=== PATIENT | female | born 1945 | race Caucasian/White ===

== ENCOUNTER 2016-05-24 08:28 | Day surgery (SDC) | payer OTHER ==
[2016-05-20 12:07] VITALS: BMI 35.9
--- NOTE | 2016-05-24 06:29 | HP ---
History & Physical Update - History History: No Change - Physical Physical: No Change - Assessment Assessment: No Change - Plan Plan: No Change
[~2016-05-24 08:28] MED LIST: TOBRA 0.3%/DEXAMETH 0.1% OPHTHALMIC SUSP 2.5 ML BTL TP ONE; TOBRAMYCIN/DEXAMETHASONE OPHTH. OINTMENT 1 TUBE TP ONE
[2016-05-24] MEDS ORDERED: TROPICAMIDE 1% OPHTH SOLN 15 ML BOTTLE ONE (08:51)
[2016-05-24] MEDS ORDERED: MOXIFLOXACIN HCL 0.5% OPHTHALMIC 3 ML BOTTLE ONE (08:51)
[2016-05-24] MEDS ORDERED: CYCLOPENTOLATE HCL 1% OPHTH SOLN 2 ML BOTTLE ONE (08:51)
[2016-05-24] MEDS ORDERED: PHENYLEPHRINE 2.5% OPHTH SOLN 15 ML BOTTLE ONE (08:51)
[2016-05-24] MEDS: TROPICAMIDE 1% OPHTH SOLN 15 ML BOTTLE OP SCH ×2 (09:00→09:05)
[2016-05-24] MEDS: MOXIFLOXACIN HCL 0.5% OPHTHALMIC 3 ML BOTTLE OP SCH ×2 (09:00→09:05)
[2016-05-24] MEDS: PHENYLEPHRINE 2.5% OPHTH SOLN 15 ML BOTTLE OP SCH ×2 (09:00→09:05)
[2016-05-24] MEDS: CYCLOPENTOLATE HCL 1% OPHTH SOLN 2 ML BOTTLE OP SCH ×2 (09:00→09:05)
[2016-05-24 09:10] VITALS: TEMP 97.5
[2016-05-24] MEDS ORDERED: TETRACAINE 0.5% HCL 0.6ML DROPPER.BOTTLE TP ONE (10:19)
[2016-05-24] MEDS ORDERED: LIDOCAINE HCL/PF 2% SDV 5ML VIAL PNB ONE (10:25)
[2016-05-24] MEDS ORDERED: BUPIVACAINE HCL/PF 0.75% 10 ML VIAL RB ONE ×2 (10:25)
[2016-05-24] MEDS ORDERED: LIDOCAINE HCL/PF 2% SDV 5ML VIAL INF ONE (10:25)
[2016-05-24] MEDS ORDERED: POVIDONE-IODINE 5% OPHTHALMIC PREP 30 ML SOLUTION OD ONE (10:31)
[2016-05-24] MEDS ORDERED: ACETYLCHOLINE 1:100 INTRA-OCUL 20 MG/2 ML KIT IO ONE (10:36)
[2016-05-24] MEDS ORDERED: TRYPAN BLUE 0.5 ML DISP.SYRIN IO ONE (10:36)
[2016-05-24] MEDS ORDERED: EPINEPHrine/PF 1 MG/1 ML (1:1,000) AMPULE SQ ONE (10:36)
[2016-05-24] MEDS ORDERED: CHONDROITIN SU A/HYALUR SOD 1 KIT IO ONE (10:36)
[2016-05-24] MEDS ORDERED: LIDOCAINE HCL 1% PRESERVATIVE FREE - 30ML VIAL IO ONE ×2 (10:36)
[2016-05-24] MEDS ORDERED: BSS (NA/CA/MG/K) BALANCED SALT SOLUTION OPHTH SOLN 15 ML BOTTLE OD ONE (10:36)
[2016-05-24] MEDS ORDERED: TOBRAMYCIN/DEXAMETHASONE OPHTH. OINTMENT 1 TUBE TP ONE (10:57)
[2016-05-24 11:54] VITALS: BP 140/83; PULSE 84
--- NOTE | 2016-05-24 13:08 | OP ---
DATE OF OPERATION: 05/24/2016 SURGEON: Wing Pandya MD PREOPERATIVE DIAGNOSIS: Cataract, right eye. OPERATION: Phacoemulsification and intraocular lens implantation, right eye. POSTOPERATIVE DIAGNOSIS: Cataract, right eye. ANESTHESIA: Local with intravenous sedation. COMPLICATIONS: None. BLOOD LOSS: None. SPECIMEN: None. BRIEF HISTORY: The patient is a 70-year-old woman with a past medical history of diabetes, who presented with decreased vision in the right eye down to 20/70 due to a 2+ nuclear sclerotic lens with anterior cortical changes. The patient has a history of having a pars plana vitrectomy. After the risks, benefits and alternatives to cataract surgery were discussed with the patient, including the increased risk due to her prior surgery, she consented to surgery for the right eye. The patient was brought to the operating room and administered retrobulbar block after receiving intravenous sedation. She was then prepped and draped in the usual sterile fashion and an eyelid speculum was inserted in the right eye. A paracentesis was made and the anterior chamber was inflated with nonpreserved lidocaine followed by injection of air, trypan blue due, and Viscoat. A groove was made in the temporal clear cornea which was tunneled forward with a crescent blade. The anterior chamber was entered with a 2.75 keratome. The cystotome was used to make an incision in the center of the capsule and a continuous curvilinear capsulorrhexis was created. The lens was hydrodissected until it was found to rotate freely within the capsular bag. Phacoemulsification was then used to remove the lens in its entirety. Irrigation and aspiration was used to remove residual cortical material. The anterior chamber and capsular bag were reinflated with ProVisc and a 24.0 diopter [id number] AcrySof intraocular lens was injected into the capsular bag using the [place] injector. The lens was dialed into place using the [place] hook. Irrigation and aspiration was used to remove residual viscoelastic. The wound was stromally hydrated until it was found to be watertight and the eye was in the appropriate pressure. The eyelid speculum was removed from the eye and TobraDex ointment and a patch and shield were placed over the right eye. The patient was transferred to the recovery room in stable condition and will follow up tomorrow. WING PANDYA M.D. [id number] MTDD
== END 2016-05-24 12:06 | disposition home or self-care (01) ==
LOC: JASU-SURG 08:28
PROVIDERS: ATTEND Ophthalmology
PROC: 08RJ3JZ Replacement of Right Lens with Synthetic Substitute, Percutaneous Approach (ICD-10-PCS; principal; 2016-05-24 11:00)
DX: H25.11 Age-related nuclear cataract, right eye (principal)

== ENCOUNTER 2016-10-07 18:41 | Observation (INO) | payer OTHER ==
--- NOTE | 2016-10-07 20:30 | PDOC ---
History of Present Illness - General Chief Complaint: Revisit, Lab Variance Stated Complaint: PCP SENT/KIDNEY FUNCTION? Time Seen by Provider: 10/07/16 20:13 - History of Present Illness Initial Comments: 10/07/16 20:22 CHIEF COMPLAINT: lab variance HISTORY OF PRESENT ILLNESS: 70 yo F with hx of HTN (on metoprolol, amlodipine, losartan, furosemide, metalazone), IDDM, CKD (stage 3), a-fib (on xarelto), sent to ED by PCP's office. Patient reports that she was feeling "weak" last week and her doctor Dr. Montiel did blood work to "check everything." She states that she received a call from the covering physician today because Dr. Montiel is on vacation and she was told that her labs were "not good" and she needed to go to the ER to "recheck everything." She denies any current symptoms but does report that she had a nosebleed last week and was told by Dr. Montiel to stop taking her Xarelto for one day and then restart it again after. She states that she took a Xarelto today at 3 pm and at 6 pm she had a small nosebleed again, although "only for 5 seconds." PAST MEDICAL HISTORY: as per HPI FAMILY HISTORY: Denies SOCIAL HISTORY:Denies tobacco, alcohol, illicit drug use. SURGICAL HISTORY: Denies ALLERGIES: No known drug allergies REVIEW OF SYSTEMS General/Constitutional: Denies fever or chills. Denies weakness, weight change. HEENT: Denies change in vision. Denies ear pain or discharge. Denies sore throat. Cardiovascular: Denies chest pain or shortness of breath. Respiratory: Denies cough, wheezing, or hemoptysis. Gastrointestinal: Denies nausea, vomiting, diarrhea or constipation. Denies rectal bleeding. Genitourinary: Denies dysuria, frequency, or change in urination. Musculoskeletal: Denies joint or muscle swelling or pain. Denies neck or back pain. Skin and breasts: Denies rash or easy bruising. Neurologic: Denies headache, vertigo, loss of consciousness, or loss of sensation. PHYSICAL EXAM General Appearance: Well-appearing, appropriately dressed. No apparent distress. HEENT: EOMI, PERRLA, normal ENT inspection, normal voice, TMs normal, pharynx normal. No conjunctival pallor. No photophobia, scleral icterus. Neck: Supple. Trachea midline. No tenderness, rigidity, carotid bruit, stridor , lymphadenopathy, or thyromegaly. Respiratory/Chest: Lungs CTAB. No shortness of breath, chest tenderness, respiratory distress, accessory muscle use. No crackles, rales, rhonchi, stridor , wheezing, dullness Cardiovascular: RRR. S1, S2. No JVD, murmur, bradycardia, tachycardia. Vascular Pulses: Dorsalis-Pedis (R): 2+, Dorsalis-Pedis (L): 2+ Gastrointestinal/Abdominal: Normal bowel sounds. Abdomen soft, non-distended. No tenderness or rebound tenderness. No organomegaly, pulsatile mass, guarding , hernia, hepatomegaly, splenomegaly. Lymphatic: No adenopathy, tenderness. Musculoskeletal/Extremities: Normal inspection. FROM of all extremities, normal capillary refill. Pelvis Stable. No CVA tenderness. No tenderness to extremities, pedal edema, swelling, erythema or deformity. Integumentary: Appropriate color, dry, warm. 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 Fully oriented, alert. Appropriate mood/affect. Motor strength 5/5. No appreciable EOM palsy, facial droop or sensory deficit. Past History - Past Medical History Allergies/Adverse Reactions: Allergies Allergy/AdvReac Type Severity Reaction Status Date / Time No Known Allergies Allergy Verified 10/07/16 18:46 Home Medications: Ambulatory Orders Losartan Potassium 100 mg PO DAILY 11/21/14 Amlodipine Besylate 10 mg PO DAILY #0 11/25/14 Atorvastatin Ca [Lipitor] 20 mg PO HS #0 11/25/14 Fluticasone Prop 0.05% Nasal [Flonase -] 1 - 2 spray NS PRN PRN 05/20/16 Furosemide [Lasix -] 40 mg PO UTDICT 05/20/16 Ibuprofen 800 mg PO PRN PRN 05/20/16 Insulin Lispro Protamin/Lispro [Humalog Mix 75-25 Vial] 24 unit SQ DAILY Metolazone 5 mg PO UTDICT 05/20/16 Metoprolol Tartrate 100 mg PO BID 05/20/16 Potassium Chloride 20 meq PO DAILY 05/20/16 Rivaroxaban [Xarelto -] 20 mg PO DAILY 05/20/16 Anemia: No Asthma: Yes Cancer: No Cardiac Disorders: Yes (ARRHYTHMIA on xarelto) CVA: No COPD: No CHF: No Dementia: No Diabetes: Yes GI Disorders: No Disorders: No HTN: Yes Liver Disease: No Seizures: No Thyroid Disease: No - Surgical History Abdominal Surgery: Yes Appendectomy: Yes Cardiac Surgery: No Cholecystectomy: Yes Lung Surgery: No Neurologic Surgery: No Orthopedic Surgery: No - Psycho/Social/Smoking Cessation Hx Anxiety: No Suicidal Ideation: No Smoking History: Never smoked Have you smoked in the past 12 months: No If you are a former smoker, when did you quit?: 30YRS AGO Information on smoking cessation initiated: No Hx Alcohol Use: No Drug/Substance Use Hx: No Substance Use Type: None Hx Substance Use Treatment: No *Physical Exam - Vital Signs Last Vital Signs Temp Pulse Resp BP Pulse Ox 97.9 F 97 H 18 156/108 99 10/07/16 18:45 10/07/16 18:45 10/07/16 18:45 10/07/16 18:45 10/07/16 18:45 ED Treatment Course - LABORATORY CBC & Chemistry Diagram: 10/07/16 21:15 10/07/16 21:15 Medical Decision Making - Medical Decision Making 10/07/16 20:50 70 yo F with hx of HTN (on metoprolol, amlodipine, losartan, furosemide, metalazone), IDDM, CKD (stage 3), a-fib (on xarelto), sent to ED by PCP's office. -CBC, CMP, PT/INR, Mg, card profile -UA, UCx 10/07/16 22:43 Labs: BUN 62, Creatinine 2.2 Per PCP office, baseline BUN 38, creatinine 1.2. Will admit for PERI on CKD. PCP 's office paged. 10/07/16 23:09 Discussed case with covering PCP Nakia, who accepts patient for observation for PERI on CKD. NS 75cc/hr started per MD Yee. *DC/Admit/Observation/Transfer - Discharge Dispostion Admit: Yes - Referrals Referrals: Bonnie Montiel MD [Primary Care Provider] -
[2016-10-07 21:48] LABS: BASOPHIL 1.1 % (0-2.0); EOSINOPHIL 0.5 % (0-4.5); MCH 23.1 pg (25.7-33.7); MEAN CELL VOLUME 74.5 fl (80-96); MEAN PLT VOLUME 8.1 fl (7.5-11.1); NEUTROPHILS 65.5 % (42.8-82.8); PLATELET COUNT 394 K/MM3 (134-434); WHITE BLOOD COUNT 8.2 K/mm3 (4.0-10.0)
[2016-10-07 21:50] LABS: URINE APPEARANCE CLEAR; URINE BILIRUBIN NEGATIVE (NEGATIVE); URINE BLOOD NEGATIVE (NEGATIVE); URINE COLOR LTYELLOW; URINE GLUCOSE (UA) NEGATIVE (NEGATIVE); URINE KETONE NEGATIVE (NEGATIVE); URINE NITRITE NEGATIVE (NEGATIVE); URINE PROTEIN NEGATIVE (NEGATIVE); URINE UROBILINOGEN NEGATIVE E.U./dl (0.2-1.0)
[2016-10-07 22:07] LABS: URINE LEUK ESTERASE TRACE (NEGATIVE)
[2016-10-07 22:09] LABS: URINE MUCUS RARE; URINE RBC <1 /hpf (0-3); URINE WBC 8 /hpf (3-5)
[2016-10-07 22:11] LABS: INR 2.14 (0.82-1.09); PROTHROMBIN TIME (PATIENT) 23.9 SEC (9.98-11.88)
[2016-10-07 22:17] LABS: ALBUMIN 3.5 g/dl (3.4-5.0); ANION GAP 11 (8-16); BILIRUBIN,TOTAL 1.5 mg/dL (0.2-1.0); CALCIUM 9.5 mg/dL (8.5-10.1); CO2 27 mmol/L (21-32); CREATININE 2.2 mg/dL (0.55-1.02); GLUCOSE,RANDOM 173 mg/dL (74-106); MAGNESIUM 2.4 mg/dL (1.8-2.4); SGOT/AST 31 U/L (15-37); SGPT/ALT 17 U/L (12-78); TOT PROT 7.7 g/dl (6.4-8.2)
[2016-10-07 22:20] LABS: ALK PHOS 215 U/L (45-117); TROPONIN I < 0.02 ng/ml (0.00-0.05)
[2016-10-07] MEDS ORDERED: SODIUM CHLORIDE 0.9% 1000 ML INFUS.BAG IV ONE (22:33)
[2016-10-08] MEDS: SODIUM CHLORIDE 1,000 ML IV SCH ×3 (00:02→11:40)
[2016-10-08] MEDS ORDERED: FLUTICASONE PROP 0.05% 16 GM NASAL SPRAY NS PRN (00:18)
[2016-10-08 03:23] VITALS: BMI 40.6
[2016-10-08] MEDS ORDERED: INSULIN (NOVOLOG) ASPART 100 UNITS/ML 10ML VIAL ONE (06:13)
[2016-10-08] MEDS: INSULIN SLIDING SCALE (NOVOLOG) 1 VIAL SQ SCH ×3 (06:14→17:33)
[2016-10-08] MEDS: INSULIN (NOVOLOG MIX 70/30) 100 UNITS/ML MDV SQ SCH (06:15)
[2016-10-08 09:26] LABS: URINE CREATININE 44.1 mg/dL (20-320)
[2016-10-08] MEDS: amLODIPine BESYLATE 10 MG TABLET (FP) PO SCH (09:30)
[2016-10-08] MEDS: METOPROLOL TARTRATE 50 MG TABLET (FP) PO SCH ×2 (09:31→21:58)
[2016-10-08] MEDS ORDERED: PATIENT'S OWN MEDICATION (NON-FORMULARY) (Insulin Lispro Protamin/Lispro [Humalog Mix 75-2 SQ SCH (10:00)
--- NOTE | 2016-10-08 11:27 | HP ---
Admitting History and Physical - Primary Care Physician PCP: Bonnie Montiel - Admission Chief Complaint: Feeling weak and Tired History of Present Illness: 70 yrs old f H/O T2DM on Insulin, poorly controlled, Diabetiv=c Nephropathy, CKD stgae 3 base line GFR 46 BUN/Creat 36/1.8, HTN, Persistent Afib rate controlled on Xarelto, HfpEF diastolic dysfunction, chronic anemia, patient was present to PMD office with 1 wk c/o off and on epistaxis, feeling weak and tired , frequent low Fs in 60s and dehydration, blood w/u was done that shows worsening renal functions BUN 74 Creat 2.8 GFR 20.8, patient skipped few medication, referred by PMD to optimize medical management, no chest pain, palpitation, SOB, cough, fever, chills, nausea, vomiting or diarrhea, no change in ET denies orthopnea or worsening SIERRA History Source: Patient Limitations to Obtaining History: No Limitations - Past Medical History Cardiovascular: Yes: AFIB, CHF, HTN, Hyperlipdemia - Smoking History Smoking history: Never smoked Have you smoked in the past 12 months: No If you are a former smoker, when did you quit?: 30YRS AGO - Alcohol/Substance Use Hx Alcohol Use: No - Social History History of Recent Travel: No Home Medications - Allergies Allergies/Adverse Reactions: Allergies Allergy/AdvReac Type Severity Reaction Status Date / Time No Known Allergies Allergy Verified 10/07/16 18:46 - Home Medications Home Medications: Ambulatory Orders Amlodipine Besylate 10 mg PO DAILY #0 11/25/14 Atorvastatin Ca [Lipitor] 20 mg PO HS #0 11/25/14 Fluticasone Prop 0.05% Nasal [Flonase -] 1 - 2 spray NS PRN PRN 05/20/16 Insulin Lispro Protamin/Lispro [Humalog Mix 75-25 Vial] 24 unit SQ DAILY Metoprolol Tartrate 100 mg PO BID 05/20/16 Potassium Chloride 20 meq PO DAILY 05/20/16 Atorvastatin Ca [Lipitor] 20 mg PO HS tablet 10/10/16 Fluticasone Prop 0.05% Nasal [Flonase -] 1 spray NS PRN PRN #0 spray 10/10/16 Furosemide [Lasix -] 20 mg PO DAILY tablet 10/10/16 Metoprolol Tartrate [Lopressor -] 50 mg PO BID tablet 10/10/16 Rivaroxaban [Xarelto -] 15 mg PO DAILY tablet 10/10/16 Family Disease History - Family Disease History Family Disease History: Heart Disease: Father, Mother Review of Systems - Review of Systems Constitutional: reports: Lethargy, Loss of Appetite, Malaise HENT: reports: No Symptoms Neck: reports: No Symptoms. denies: Decreased ROM, Pain on Movement Cardiovascular: reports: Edema, Shortness of Breath Respiratory: denies: Cough, Hemoptysis, Orthopnea, PND Gastrointestinal: denies: Diarrhea, Vomiting, Vomiting Blood Genitourinary: reports: Testicular Mass. denies: Dysuria, Flank Pain Musculoskeletal: reports: Back Pain Integumentary: denies: Blister, Bruising Neurological: reports: No Symptoms Endocrine: reports: Flushing Hematology/Lymphatic: reports: Easily Bruised, Excessive Bleeding Psychiatric: reports: No Symptoms Physical Examination Vital Signs: Vital Signs Temperature 97.9 F 10/08/16 08:51 Pulse Rate 89 10/08/16 08:51 Respiratory Rate 20 10/08/16 08:51 Blood Pressure 139/73 10/08/16 08:51 O2 Sat by Pulse Oximetry (%) 97 10/08/16 08:00 Constitutional: Yes: Calm, Pallor Eyes: Yes: Conjunctiva Clear, EOM Intact, PERRL. No: Diplopia HENT: Yes: Atraumatic, Normocephalic, Epistaxis Neck: Yes: Supple, Trachea Midline. No: Decreased ROM Cardiovascular: Yes: Regular Rate and Rhythm, S1, S2. No: Murmur Respiratory: Yes: Regular, CTA Bilaterally Gastrointestinal: Yes: Normal Bowel Sounds. No: Rectal Bleeding, Tenderness, Epigastrium, Tenderness, Rebound Edema: Yes Edema: LLE: 1+, RLE: 1+ Peripheral Pulses: Left Doralis Pedis: 1+, Right Dorsalis Pedis: 1+ Neurological: Yes: WNL, Alert, Oriented, Lethargy. No: Facial Droop, Seizure ...Motor Strength: WNL, LUE, LLE, RUE, RLE Labs: CBC, BMP 10/07/16 21:15 10/07/16 21:15 CMP Sodium 139 mmol/L (136-145) 10/08/16 12:15 Potassium 3.1 mmol/L (3.5-5.1) L 10/08/16 12:15 Chloride 100 mmol/L (98-107) 10/08/16 12:15 Carbon Dioxide 27 mmol/L (21-32) 10/08/16 12:15 Anion Gap 12 (8-16) 10/08/16 12:15 BUN 57 mg/dL (7-18) H 10/08/16 12:15 Creatinine 1.9 mg/dL (0.55-1.02) H 10/08/16 12:15 Creat Clearance w eGFR 22.20 (>60) 10/07/16 21:15 POC Glucometer 238 UNITS (()) 10/08/16 16:59 Random Glucose 122 mg/dL (74-106) H D 10/08/16 12:15 Calcium 8.9 mg/dL (8.5-10.1) 10/08/16 12:15 Magnesium 2.3 mg/dL (1.8-2.4) 10/08/16 12:15 Total Bilirubin 1.5 mg/dL (0.2-1.0) H D 10/07/16 21:15 AST 31 U/L (15-37) D 10/07/16 21:15 ALT 17 U/L (12-78) D 10/07/16 21:15 Alkaline Phosphatase 215 U/L (45-117) H D 10/07/16 21:15 Creatine Kinase 67 IU/L (26-192) 10/07/16 21:15 Troponin I < 0.02 ng/ml (0.00-0.05) 10/07/16 21:15 B-Natriuretic Peptide 2582.98 pg/ml (5-125) H 10/08/16 12:15 Total Protein 7.7 g/dl (6.4-8.2) 10/07/16 21:15 Albumin 3.5 g/dl (3.4-5.0) 10/07/16 21:15 Imaging - Results EKG: Report Reviewed Problem List - Problems (1) Acute on chronic renal failure Assessment/Plan: Patient present with worsening renal function at base line CKD stage 3 due to over diuresis will hold diuretics, IV Hydration with close observation for volume overload, F/U IP/OP chart daily weight and BMP. Code(s): N17.9 - ACUTE KIDNEY FAILURE, UNSPECIFIED N18.9 - CHRONIC KIDNEY DISEASE, UNSPECIFIED Qualifiers: Chronic kidney disease stage: stage 3 (moderate) (2) HTN (hypertension) Assessment/Plan: Well controlled will Hold Losartan for worsen renal functions, Metoprolol 50 mg BID cont amlodipine, Code(s): I10 - ESSENTIAL (PRIMARY) HYPERTENSION (3) T2DM (type 2 diabetes mellitus) Assessment/Plan: Frequent episodes of Hypoglycemia, poor Po intake and worsening renal functions Levimir 12 units bed time F/U HbA1C, cont correction dose Lispro. Code(s): E11.9 - TYPE 2 DIABETES MELLITUS WITHOUT COMPLICATIONS Qualifiers: Diabetes mellitus complication status: with kidney complications Diabetes mellitus complication detail: with nephropathy Diabetes mellitus intermediate teacher insulin use: with shelter use Qualified Code(s): E11.21 - Type 2 diabetes mellitus with diabetic nephropathy; Z79.4 - FPC (current) use of insulin (4) Diastolic CHF Assessment/Plan: Chronically elevated PrO BNP, recent ECHo normal EF with diastolic dysfunction F /u with cardiology. Code(s): I50.30 - UNSPECIFIED DIASTOLIC (CONGESTIVE) HEART FAILURE Qualifiers : Congestive heart failure chronicity: acute on chronic Qualified Code (s): I50.33 - Acute on chronic diastolic (congestive) heart failure (5) Atrial fibrillation Assessment/Plan: Chronic Afib rate controlled on AC with Xarelto 20 will adjust as per GFR to 15 units mg daily. Code(s): I48.91 - UNSPECIFIED ATRIAL FIBRILLATION (6) Dehydration Assessment/Plan: IV Hydration F/U BMP.and GFR Code(s): E86.0 - DEHYDRATION (7) Hypothyroidism Assessment/Plan: F/U TSH will resume Levothyroxine after confirming dose. Code(s): E03.9 - HYPOTHYROIDISM, UNSPECIFIED
[2016-10-08 12:41] LABS: MCH 23.4 pg (25.7-33.7); MCHC 31.3 g/dl (32.0-36.0); MEAN CELL VOLUME 74.8 fl (80-96); MEAN PLT VOLUME 7.9 fl (7.5-11.1); PLATELET COUNT 343 K/MM3 (134-434); RDW 18.9 % (11.6-15.6); WHITE BLOOD COUNT 7.4 K/mm3 (4.0-10.0)
[2016-10-08 13:13] LABS: ANION GAP 12 (8-16); CALCIUM 8.9 mg/dL (8.5-10.1); CO2 27 mmol/L (21-32); CREATININE 1.9 mg/dL (0.55-1.02); GLUCOSE,RANDOM 122 mg/dL (74-106)
[2016-10-08] MEDS ORDERED: POTASSIUM CHLORIDE TABS 20 MEQ TABLET.ER (FP) PO ONE (14:00)
[2016-10-08] MEDS ORDERED: PT OWN MED DRAWER 7, Y5N ONE (14:18)
[2016-10-08 14:41] LABS: MAGNESIUM 2.3 mg/dL (1.8-2.4)
[2016-10-08] MEDS: ATORVASTATIN CA 20 MG TABLET (FP) PO SCH (21:59)
[2016-10-08] MEDS ORDERED: METOPROLOL TARTRATE 50 MG TABLET (FP) PO ONE (22:00)
[2016-10-09] MEDS: SODIUM CHLORIDE 1,000 ML IV SCH (02:16)
[2016-10-09] MEDS: INSULIN (NOVOLOG MIX 70/30) 100 UNITS/ML MDV SQ SCH (06:09)
[2016-10-09] MEDS ORDERED: INSULIN (NOVOLOG) ASPART 100 UNITS/ML 10ML VIAL ONE ×2 (06:10→16:56)
[2016-10-09] MEDS: INSULIN SLIDING SCALE (NOVOLOG) 1 VIAL SQ SCH ×3 (06:10→16:57)
[2016-10-09 08:41] LABS: BASOPHIL 0.9 % (0-2.0); EOSINOPHIL 1.3 % (0-4.5); MCH 23.4 pg (25.7-33.7); MCHC 31.2 g/dl (32.0-36.0); MEAN CELL VOLUME 74.8 fl (80-96); NEUTROPHILS 66.5 % (42.8-82.8); PLATELET COUNT 297 K/MM3 (134-434); RDW 18.7 % (11.6-15.6); WHITE BLOOD COUNT 7.3 K/mm3 (4.0-10.0)
[2016-10-09 08:51] LABS: INR 1.42 (0.82-1.09); PROTHROMBIN TIME (PATIENT) 15.7 SEC (9.98-11.88)
[2016-10-09 09:20] LABS: ALBUMIN 2.8 g/dl (3.4-5.0); ANION GAP 9 (8-16); CALCIUM 8.6 mg/dL (8.5-10.1); CO2 27 mmol/L (21-32); GLUCOSE,RANDOM 172 mg/dL (74-106)
[2016-10-09 09:32] LABS: ALK PHOS 168 U/L (45-117); BILIRUBIN,TOTAL 1.3 mg/dL (0.2-1.0); CREATININE 1.9 mg/dL (0.55-1.02); SGOT/AST 23 U/L (15-37); SGPT/ALT 15 U/L (12-78); THYROID STIMULATING HORMONE 3.29 uIU/ml (0.358-3.74); TOT PROT 6.2 g/dl (6.4-8.2)
[2016-10-09] MEDS: METOPROLOL TARTRATE 50 MG TABLET (FP) PO SCH ×2 (09:57→21:52)
[2016-10-09] MEDS: amLODIPine BESYLATE 10 MG TABLET (FP) PO SCH (09:57)
[2016-10-09] MEDS ORDERED: FUROSEMIDE 20 MG TABLET (FP) PO SCH (13:15)
--- NOTE | 2016-10-09 13:21 | PN ---
Progress Note, Physician Chief Complaint: Patient feels improved no c/o weakness History of Present Illness: 70 yrs old F with HTN, T2DM, chronic Afib, CKD stage 3 present with worsening renal functions. - Current Medication List Current Medications: Active Medications Amlodipine Besylate (Norvasc -) 10 mg PO DAILY [facility] Last Admin: 10/09/16 09:57 Dose: 10 mg Atorvastatin Calcium (Lipitor -) 20 mg PO HS [facility] Last Admin: 10/08/16 21:59 Dose: 20 mg Fluticasone Propionate (Flonase -) 1 spray NS PRN PRN PRN Reason: NASAL CONGESTION Furosemide (Lasix -) 20 mg PO DAILY [facility] Insulin Aspart (Novolog Vial Sliding Scale -) 1 vial SQ TIDAC HAIDER PRN Reason: Protocol Last Admin: 10/09/16 11:12 Dose: Not Given Insulin Aspart (Novolog Mix 70/30 Vial) 12 units SQ AM [facility] Last Admin: 10/09/16 06:09 Dose: 12 units Metoprolol Tartrate (Lopressor -) 50 mg PO BID [facility] Potassium Chloride (Potassium Chloride Oral Liquid) 20 meq PO ONCE ONE Stop: 10/09/16 13:31 Rivaroxaban (Xarelto -) 15 mg PO DAILY [facility] - Objective Vital Signs: Vital Signs Temperature 97.8 F 10/09/16 09:25 Pulse Rate 88 10/09/16 09:25 Respiratory Rate 18 10/09/16 09:25 Blood Pressure 108/56 10/09/16 09:25 O2 Sat by Pulse Oximetry (%) 97 10/09/16 09:00 Elderly F looks Comfortable HEENT: Mm moist mils anemia, NECK: JVD No Bruit CHEST: CTA B/L CVS: S1S2 Irr ABD: Obese non tender Bs + EXT: ++ Kavin afeet [employer]AUT[employer] C[employer]URIST: AOx3 non focal Constitutional: Yes: Well Nourished HENT: Yes: WNL, Atraumatic, Normocephalic Neck: Yes: WNL, Supple, Trachea Midline Cardiovascular: Yes: WNL, Regular Rate and Rhythm, JVD, S1, S2. No: Murmur Respiratory: Yes: WNL, Regular, CTA Bilaterally Gastrointestinal: Yes: WNL, Normal Bowel Sounds, Soft. No: Palpable Mass Musculoskeletal: Yes: WNL. No: Back Pain, Joint Stiffness Edema: LLE: 1+, RLE: 1+ Peripheral Pulses WNL: Yes Peripheral Pulses: Left Doralis Pedis: 1+, Right Dorsalis Pedis: 1+ Neurological: Yes: WNL, Alert, Oriented, Cran Nerves II-XII Intact. No: Loss of Sensation ...Motor Strength: WNL, LUE, LLE, RUE, RLE Labs: CBC, BMP 10/09/16 06:38 10/09/16 06:38 INR, PTT INR 1.42 (0.82-1.09) H D 10/09/16 06:38 - ....Imaging EKG: Report Reviewed (Afib at [address] changes) Problem List - Problems (1) Acute on chronic renal failure Assessment/Plan: Patient present with worsening renal function at base line CKD stage 3 due to over diuresis will hold diuretics, IV Hydration with close observation for volume overload, F/U IP/OP chart daily weight and BMP. Code(s): N17.9 - ACUTE KIDNEY FAILURE, UNSPECIFIED N18.9 - CHRONIC KIDNEY DISEASE, UNSPECIFIED Qualifiers: Chronic kidney disease stage: stage 3 (moderate) (2) HTN (hypertension) Assessment/Plan: Well controlled will Hold Losartan for worsen renal functions, Metoprolol 50 mg BID cont amlodipine, Code(s): I10 - ESSENTIAL (PRIMARY) HYPERTENSION (3) T2DM (type 2 diabetes mellitus) Assessment/Plan: Frequent episodes of Hypoglycemia, poor Po intake and worsening renal functions Levimir 12 units bed time F/U HbA1C, cont correction dose Lispro. 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 Code(s): I50.30 - UNSPECIFIED DIASTOLIC (CONGESTIVE) HEART FAILURE Qualifiers : Congestive heart failure chronicity: acute on chronic Qualified Code (s): I50.33 - Acute on chronic diastolic (congestive) heart failure (5) Atrial fibrillation Assessment/Plan: Chronic Afib rate controlled on AC with Xarelto 20 will adjust as per GFR to 15 units mg daily. Code(s): I48.91 - UNSPECIFIED ATRIAL FIBRILLATION (6) Dehydration Assessment/Plan: IV Hydration F/U BMP.and GFR Code(s): E86.0 - DEHYDRATION (7) Hypothyroidism Assessment/Plan: F/U TSH will resume Levothyroxine after confirming dose. Code(s): E03.9 - HYPOTHYROIDISM, UNSPECIFIED
[2016-10-09] MEDS ORDERED: PT OWN MED DRAWER 7, Y5N ONE ×2 (13:28→13:42)
[2016-10-09] MEDS ORDERED: POTASSIUM CHLORIDE ORAL LIQUID 20 MEQ/15 ML PO ONE (13:30)
[2016-10-09] MEDS: RIVAROXABAN 15 MG TABLET PO SCH (14:28)
[2016-10-09] MEDS: ATORVASTATIN CA 20 MG TABLET (FP) PO SCH (21:52)
[2016-10-10] MEDS ORDERED: INSULIN (NOVOLOG) ASPART 100 UNITS/ML 10ML VIAL ONE (05:51)
[2016-10-10] MEDS: INSULIN SLIDING SCALE (NOVOLOG) 1 VIAL SQ SCH (06:07)
[2016-10-10] MEDS: INSULIN (NOVOLOG MIX 70/30) 100 UNITS/ML MDV SQ SCH (06:08)
[2016-10-10 06:24] VITALS: BP 134/62; PULSE 84; TEMP 97
[2016-10-10 06:24] LABS: EOSINOPHIL 1.7 % (0-4.5); MCH 23.4 pg (25.7-33.7); MCHC 31.6 g/dl (32.0-36.0); MEAN CELL VOLUME 73.9 fl (80-96); NEUTROPHILS 63.9 % (42.8-82.8); PLATELET COUNT 370 K/MM3 (134-434); RDW 18.8 % (11.6-15.6); WHITE BLOOD COUNT 7.7 K/mm3 (4.0-10.0)
[2016-10-10 07:24] LABS: ALBUMIN 3.1 g/dl (3.4-5.0); ALK PHOS 184 U/L (45-117); ANION GAP 9 (8-16); BILIRUBIN,TOTAL 1.4 mg/dL (0.2-1.0); CALCIUM 8.7 mg/dL (8.5-10.1); CO2 28 mmol/L (21-32); CREATININE 1.7 mg/dL (0.55-1.02); GLUCOSE,RANDOM 142 mg/dL (74-106); SGOT/AST 27 U/L (15-37); SGPT/ALT 15 U/L (12-78); TOT PROT 6.8 g/dl (6.4-8.2)
--- NOTE | 2016-10-10 09:46 | DS ---
Physical Examination Vital Signs: Vital Signs Temperature 97.0 F L 10/10/16 06:00 Pulse Rate 84 10/10/16 06:00 Respiratory Rate 16 10/10/16 06:00 Blood Pressure 134/62 10/10/16 06:00 O2 Sat by Pulse Oximetry (%) 97 10/09/16 23:00 Findings/Remarks: Admitted with renal insufficiency,improved Also known to have CHF and afib Constitutional: Yes: No Distress Eyes: Yes: WNL HENT: Yes: WNL, Other Cardiovascular: Yes: WNL, Pulse Irregular Respiratory: Yes: Regular Gastrointestinal: Yes: Normal Bowel Sounds ...Rectal Exam: Yes: Deferred Renal/: Yes: WNL Musculoskeletal: Yes: WNL Edema: Yes Edema: LLE: Trace, RLE: Trace Neurological: Yes: Alert ...Motor Strength: WNL Psychiatric: Yes: WNL Labs: CBC, BMP 10/10/16 05:40 10/10/16 05:40 Discharge Summary Reason For Visit: PERI/CKD Current Active Problems Acute on chronic renal failure (Acute) Atrial fibrillation (Acute) Dehydration (Acute) Diastolic CHF (Acute) HTN (hypertension) (Acute) Muscle weakness (Acute) T2DM (type 2 diabetes mellitus) (Acute) - Instructions Referrals: Bonnie Montiel MD [Primary Care Provider] - - Home Medications Comprehensive Discharge Medication List: Ambulatory Orders Amlodipine Besylate 10 mg PO DAILY #0 11/25/14 Atorvastatin Ca [Lipitor] 20 mg PO HS #0 11/25/14 Fluticasone Prop 0.05% Nasal [Flonase -] 1 - 2 spray NS PRN PRN 05/20/16 Insulin Lispro Protamin/Lispro [Humalog Mix 75-25 Vial] 24 unit SQ DAILY Metoprolol Tartrate 100 mg PO BID 05/20/16 Potassium Chloride 20 meq PO DAILY 05/20/16 Atorvastatin Ca [Lipitor] 20 mg PO HS tablet 10/10/16 Fluticasone Prop 0.05% Nasal [Flonase -] 1 spray NS PRN PRN #0 spray 10/10/16 Furosemide [Lasix -] 20 mg PO DAILY tablet 10/10/16 Metoprolol Tartrate [Lopressor -] 50 mg PO BID tablet 10/10/16 Rivaroxaban [Xarelto -] 15 mg PO DAILY tablet 10/10/16
[2016-10-10] MEDS ORDERED: POTASSIUM CHLORIDE 20 MEQ PREMIX IVPB 100 ML IVPB ONE (09:47)
[2016-10-10] MEDS ORDERED: PT OWN MED DRAWER 7, Y5N ONE (10:10)
[2016-10-10] MEDS ORDERED: KCL 10 MEQ IVPB 100 ML IVPB SCH (11:00)
[2016-10-10] MEDS: RIVAROXABAN 15 MG TABLET PO SCH (11:07)
[2016-10-10] MEDS: METOPROLOL TARTRATE 50 MG TABLET (FP) PO SCH (11:07)
[2016-10-10] MEDS: amLODIPine BESYLATE 10 MG TABLET (FP) PO SCH (11:07)
--- NOTE | 2016-10-10 12:08 | CON.CARD ---
Consult Consult Specialty:: Cardiology - History of Present Illness History of Present Illness: 70 yo F with hx of HTN (on metoprolol, amlodipine, losartan, furosemide, metalazone), IDDM, CKD (stage 3), a-fib (on xarelto), sent to ED by PCP's office. Patient reports that she was feeling "weak" last week and her doctor Dr. Montiel did blood work to "check everything." She states that she received a call from the covering physician today because Dr. Montiel is on vacation and she was told that her labs were "not good" and she needed to go to the ER to "recheck everything." She denies any current symptoms but does report that she had a nosebleed last week and was told by Dr. Montiel to stop taking her Xarelto for one day and then restart it again after. She states that she took a Xarelto today at 3 pm and at 6 pm she had a small nosebleed again, although "only for 5 seconds." - History Source History Provided By: Patient, Medical Record - Past Medical History Cardio/Vascular: Yes: AFIB, CHF, HTN, Hyperlipdemia - Alcohol/Substance Use Hx Alcohol Use: No - Smoking History Smoking history: Never smoked Have you smoked in the past 12 months: No If you are a former smoker, when did you quit?: 30YRS AGO - Social History History of Recent Travel: No Home Medications - Allergies Allergies/Adverse Reactions: Allergies Allergy/AdvReac Type Severity Reaction Status Date / Time No Known Allergies Allergy Verified 10/07/16 18:46 - Home Medications Home Medications: Ambulatory Orders Amlodipine Besylate 10 mg PO DAILY #0 11/25/14 Atorvastatin Ca [Lipitor] 20 mg PO HS #0 11/25/14 Fluticasone Prop 0.05% Nasal [Flonase -] 1 - 2 spray NS PRN PRN 05/20/16 Insulin Lispro Protamin/Lispro [Humalog Mix 75-25 Vial] 24 unit SQ DAILY Metoprolol Tartrate 100 mg PO BID 05/20/16 Potassium Chloride 20 meq PO DAILY 05/20/16 Atorvastatin Ca [Lipitor] 20 mg PO HS tablet 10/10/16 Fluticasone Prop 0.05% Nasal [Flonase -] 1 spray NS PRN PRN #0 spray 10/10/16 Furosemide [Lasix -] 20 mg PO DAILY tablet 10/10/16 Metoprolol Tartrate [Lopressor -] 50 mg PO BID tablet 10/10/16 Rivaroxaban [Xarelto -] 15 mg PO DAILY tablet 10/10/16 Family Disease History - Family Disease History Family Disease History: Heart Disease: Father, Mother Review of Systems - Review of Systems Constitutional: reports: Weakness Eyes: reports: No Symptoms HENT: reports: No Symptoms Neck: reports: No Symptoms Cardiovascular: reports: No Symptoms Gastrointestinal: reports: No Symptoms Genitourinary: reports: No Symptoms Breasts: reports: No Symptoms Reported Musculoskeletal: reports: No Symptoms Integumentary: reports: No Symptoms Neurological: reports: No Symptoms Endocrine: reports: No Symptoms Hematology/Lymphatic: reports: No Symptoms Psychiatric: reports: No Symptoms Vital Signs: Vital Signs Temperature 97.0 F L 10/10/16 06:00 Pulse Rate 84 10/10/16 06:00 Respiratory Rate 16 10/10/16 06:00 Blood Pressure 134/62 10/10/16 06:00 O2 Sat by Pulse Oximetry (%) 97 10/09/16 23:00 Constitutional: Yes: Well Nourished, No Distress, Calm Eyes: Yes: WNL, Conjunctiva Clear, EOM Intact HENT: Yes: WNL, Atraumatic, Normocephalic Neck: Yes: WNL, Supple, Trachea Midline Respiratory: Yes: WNL, Regular, CTA Bilaterally Gastrointestinal: Yes: WNL, Normal Bowel Sounds Renal/: Yes: WNL Cardiovascular: Yes: Pulse Irregular Musculoskeletal: Yes: WNL Extremities: Yes: WNL Integumentary: Yes: WNL Neurological: Yes: WNL, Alert, Oriented ...Motor Strength: WNL Psychiatric: Yes: WNL, Alert, Oriented - Other Data Labs, Other Data: CBC, BMP 10/10/16 05:40 10/10/16 05:40 INR, PTT INR 1.42 (0.82-1.09) H D 10/09/16 06:38 Imaging - Results Chest X-ray: Image Reviewed (no i/e) EKG: Pending, Image Reviewed Problem List - Problems (1) Acute on chronic renal failure Code(s): N17.9 - ACUTE KIDNEY FAILURE, UNSPECIFIED N18.9 - CHRONIC KIDNEY DISEASE, UNSPECIFIED Qualifiers: Chronic kidney disease stage: stage 3 (moderate) (2) Atrial fibrillation Code(s): I48.91 - UNSPECIFIED ATRIAL FIBRILLATION (3) Dehydration Code(s): E86.0 - DEHYDRATION (4) Diastolic CHF Code(s): I50.30 - UNSPECIFIED DIASTOLIC (CONGESTIVE) HEART FAILURE Qualifiers : Congestive heart failure chronicity: acute on chronic Qualified Code (s): I50.33 - Acute on chronic diastolic (congestive) heart failure (5) HTN (hypertension) Code(s): I10 - ESSENTIAL (PRIMARY) HYPERTENSION (6) Muscle weakness Code(s): M62.81 - MUSCLE WEAKNESS (GENERALIZED) (7) T2DM (type 2 diabetes mellitus) Code(s): E11.9 - TYPE 2 DIABETES MELLITUS WITHOUT COMPLICATIONS Qualifiers: Diabetes mellitus complication status: with kidney complications Diabetes mellitus complication detail: with nephropathy Diabetes mellitus exterminator insulin use: with retirement use Qualified Code(s): E11.21 - Type 2 diabetes mellitus with diabetic nephropathy; Z79.4 - assisted (current) use of insulin (8) Edema extremities Code(s): R60.0 - LOCALIZED EDEMA (9) Hypokalemia Code(s): E87.6 - HYPOKALEMIA (10) New onset atrial fibrillation Code(s): I48.91 - UNSPECIFIED ATRIAL FIBRILLATION Assessment/Plan HTN (on metoprolol, amlodipine, losartan, furosemide, metalazone), IDDM, CKD ( stage 3), a-fib (on xarelto), Plan Cardiac barry stable obtain ekg will f/u
--- NOTE | 2016-10-10 13:56 | EKG ---
Test Reason : Blood Pressure : / mmHG Vent. Rate : 078 BPM Atrial Rate : 064 BPM P-R Int : 000 ms QRS Dur : 088 ms QT Int : 422 ms P-R-T Axes : 000 090 147 degrees QTc Int : 481 ms ATRIAL FIBRILLATION LOW VOLTAGE QRS NONSPECIFIC ST AND T WAVE ABNORMALITY PROLONGED QT ABNORMAL ECG WHEN COMPARED WITH ECG OF 21-NOV-2014 18:25, Confirmed by GORAN CHRISTY MD ([id number]) on 10/10/2016 1:55:34 PM Referred By: Confirmed By:GORAN CHRISTY MD
== END 2016-10-10 12:08 | disposition home or self-care (01) ==
LOC: JER 18:41 → JERBED 10-08 → J6S 10-08 02:57
PROVIDERS: ADMIT Internal Medicine; ATTEND Internal Medicine
PROC: 3E033GC Introduction of Other Therapeutic Substance into Peripheral Vein, Percutaneous Approach (ICD-10-PCS; principal; 2016-10-08)
PROC: 3E013VG Introduction of Insulin into Subcutaneous Tissue, Percutaneous Approach (ICD-10-PCS; 2016-10-08)
PROC: 3E0337Z Introduction of Electrolytic and Water Balance Substance into Peripheral Vein, Percutaneous Approach (ICD-10-PCS; 2016-10-08)
PROC: 3E0F7GC Introduction of Other Therapeutic Substance into Respiratory Tract, Via Natural or Artificial Opening (ICD-10-PCS; 2016-10-08)
DX: N17.9 Acute kidney failure, unspecified (principal); I12.9 Hypertensive chronic kidney disease with stage 1 through stage 4 chronic kidney disease, or unspecified chronic kidney disease; I50.33 Acute on chronic diastolic (congestive) heart failure; I48.91 Unspecified atrial fibrillation; E11.22 Type 2 diabetes mellitus with diabetic chronic kidney disease; E11.21 Type 2 diabetes mellitus with diabetic nephropathy; E86.0 Dehydration; E03.9 Hypothyroidism, unspecified; N18.3 Chronic kidney disease, stage 3 (moderate); Z79.4 Long term (current) use of insulin; Z79.01 Long term (current) use of anticoagulants
CPT/HCPCS: 36415; 71020-TC; 80048; 80053; 81003; 81015; 82550; 82570; 83036; 83735; 83880; 84300; 84443; 84484; 84540; 85025; 85027; 85610; 87086; 93005; 93010; 99282-25; G0378

== ENCOUNTER 2016-11-23 10:30 | Inpatient (IN) | payer OTHER ==
--- NOTE | 2016-11-23 11:16 | PDOC ---
History of Present Illness - General Chief Complaint: Edema Stated Complaint: PAIN, UNABLE TO SLEEP Time Seen by Provider: 11/23/16 10:56 History Source: Patient Exam Limitations: No Limitations - History of Present Illness Initial Comments: 11/23/16 11:30 Patient is a 71-year-old female with past medical history of cholecystitis, diastolic heart failure, poorly controlled diabetes, hypertension, CAD, CKD and afib who presents to the emergency department today complaining of abdominal pain, poor intake and nausea. Patient states that her pain has been worsening over the past 2 days. And the pain has become unbearable to the point where she can't sleep at night. She states that her pain is very diffuse and she feels bloated. Admits nausea, edema, vomiting, and abdominal pain/bloating. Denies fevers, chills, palpitations , shortness of breath, chest pain, dysuria, hematuria, frequency and urgency. Past History - Travel Traveled outside of the country in the last 30 days: No Close contact w/someone who was outside of country & ill: No - Past Medical History Allergies/Adverse Reactions: Allergies Allergy/AdvReac Type Severity Reaction Status Date / Time No Known Allergies Allergy Verified 11/23/16 10:36 Home Medications: Ambulatory Orders Amlodipine Besylate 10 mg PO DAILY #0 11/25/14 Atorvastatin Ca [Lipitor] 20 mg PO HS #0 11/25/14 Fluticasone Prop 0.05% Nasal [Flonase -] 1 - 2 spray NS PRN PRN 05/20/16 Insulin Lispro Protamin/Lispro [Humalog Mix 75-25 Vial] 24 unit SQ DAILY Metoprolol Tartrate 100 mg PO BID 05/20/16 Potassium Chloride 20 meq PO DAILY 05/20/16 Atorvastatin Ca [Lipitor] 20 mg PO HS tablet 10/10/16 Fluticasone Prop 0.05% Nasal [Flonase -] 1 spray NS PRN PRN #0 spray 10/10/16 Furosemide [Lasix -] 20 mg PO DAILY tablet 10/10/16 Metoprolol Tartrate [Lopressor -] 50 mg PO BID tablet 10/10/16 Rivaroxaban [Xarelto -] 15 mg PO DAILY tablet 10/10/16 Anemia: No Asthma: Yes Cancer: No Cardiac Disorders: Yes (ARRHYTHMIA) CVA: No COPD: No CHF: No Dementia: No Diabetes: Yes GI Disorders: No Disorders: No HTN: Yes Liver Disease: No Seizures: No Thyroid Disease: No - Surgical History Abdominal Surgery: Yes Appendectomy: Yes Cardiac Surgery: No Cholecystectomy: Yes Lung Surgery: No Neurologic Surgery: No Orthopedic Surgery: No - Psycho/Social/Smoking Cessation Hx Anxiety: No Suicidal Ideation: No Smoking History: Never smoked Have you smoked in the past 12 months: No If you are a former smoker, when did you quit?: 30YRS AGO Hx Alcohol Use: No Drug/Substance Use Hx: No Substance Use Type: None Hx Substance Use Treatment: No Review of Systems - Review of Systems Able to Perform ROS?: Yes Is the patient limited Palestinian proficient: No Constitutional: No: Chills, Fever, Malaise, Weakness Respiratory: No: Cough, Shortness of Breath, Wheezing Cardiac (ROS): Yes: Edema. No: Chest Pain, Palpitations, Syncope, Chest Tightness ABD/GI: Yes: Abdominal Distended, Nausea, Poor Appetite, Vomiting, Abdominal cramping. No: Diarrhea : No: Burning, Dysuria, Discharge, Frequency, Flank Pain Neurological: No: Headache, Numbness, Paresthesia, Weakness All Other Systems: Reviewed and Negative *Physical Exam - Vital Signs Last Vital Signs Temp Pulse Resp BP Pulse Ox 97.5 F L 103 H 20 155/54 96 11/23/16 10:32 11/23/16 10:32 11/23/16 10:32 11/23/16 10:32 11/23/16 10:32 - Physical Exam Comments: 11/23/16 11:31 GENERAL: Well developed, well nourished. Awake and alert. No acute distress. HEENT: Normocephalic, atraumatic. PERRLA, EOMI. No conjunctival pallor. Sclera are non- icteric. Moist mucous membranes. Oropharynx is clear. NECK: Supple. Full ROM. No JVD. Carotid pulses 2+ and symmetric, without bruits. No thyromegaly. No lymphadenopathy. CARDIOVASCULAR: Irregularly irregular rhythm. No murmurs, rubs, or gallops. Distal pulses are 2 + and symmetric. PULMONARY: No evidence of respiratory distress. Lungs clear to auscultation bilaterally. No wheezing, rales or rhonchi. ABDOMINAL: TTP of the RUQ. Soft. Non-tender. Non-distended. No rebound or guarding. No organomegaly. Normoactive bowel sounds. MUSCULOSKELETAL Normal range of motion at all joints. No bony deformities or tenderness. No CVA tenderness. EXTREMITIES: 4+ pitting edema notable into the abdomen. No cyanosis. No clubbing. No edema. No calf tenderness. SKIN: Warm and dry. Normal capillary refill. No rashes. No jaundice. NEUROLOGICAL: Alert, awake, appropriate. Cranial nerves 2-12 intact. No deficits to light touch and temperature in face, upper extremities and lower extremities. No motor deficits in the in face, upper extremities and lower extremities. Normoreflexic in the upper and lower extremities. Normal speech. Toes are down- going bilaterally. Gait is normal without ataxia. PSYCHIATRIC: Cooperative. Good eye contact. Appropriate mood and affect. ED Treatment Course - LABORATORY CBC & Chemistry Diagram: 11/23/16 11:55 11/23/16 11:55 Medical Decision Making - Medical Decision Making 11/23/16 11:32 Patient is a 71-year-old female with past medical history of diastolic heart failure, poorly controlled diabetes, hypertension, CAD, CKD and afib who presents to the emergency department today complaining of abdominal pain, poor intake and nausea. Patient is very tender to palpation of the right upper quadrant, positive Taylor sign. We'll obtain right upper quadrant ultrasound at this time. We'll obtain basic lab work given patient's multiple comorbidities. We'll treat for pain and nausea 1.CBC, CMP, lipase, PT/INR, BNP, cardiac labs, UA, 2.EKG, right upper quadrant ultrasound 3.reevaluate 11/23/16 14:37 Ultrasound shows status post cholecystectomy with slight dilatation of the biliary tree to 1.2 cm. Heterogeneous liver suspicious for hepatocellular disease. Correlate clinically and follow-up recommended. Lab work is positive for a bilirubin of 1.5, alkaline phosphatase 185 however this appears to be around the patient's baseline. BUN/creatinine are slightly elevated at 20 and 2.2. Patient's pain is resolved with morphine and Zofran. Given findings and tenderness more concerned for a potential CBD stone. Will admit at this time. Dr. Norris is her primary care doctor. First called Dr. Norris 11/23/16 14:51 Doctor Nakia covering for Dr. Norris. We will admit patient at this time for observation for further workup of her elevated bilirubin and potentially dilated common bile duct. Requesting CT abdomen with oral contrast at this time. Patient accepted to [facility]. *DC/Admit/Observation/Transfer Diagnosis at time of Disposition: Edema extremities, Elevated bilirubin Diastolic CHF Qualifiers: Congestive heart failure chronicity: chronic Qualified Code(s): I50.32 - Chronic diastolic (congestive) heart failure Atrial fibrillation Qualifiers: Atrial fibrillation type: unspecified Qualified Code(s): I48.91 - Unspecified atrial fibrillation - Discharge Dispostion Condition at time of disposition: Stable Admit: Yes
[2016-11-23] MEDS ORDERED: ONDANSETRON 4 MG/2 ML VIAL IVPUSH ONE (11:19)
[2016-11-23] MEDS ORDERED: morphine CARPU-JECT 4 MG/1 ML DISP.SYRIN IVPUSH ONE (11:22)
--- NOTE | 2016-11-23 11:31 | PDOC ---
Attending Attestation - Resident Resident Name: Tara Hannah - ED Attending Attestation I have performed the following: I have examined & evaluated the patient, The case was reviewed & discussed with the resident, I agree w/resident's findings & plan, Exceptions are as noted - HPI HPI: 71y F hxo f afib, chf, dm, cad ckd presents with complaint of 2 days of right sided abodminal pain, nausea.no associated fever/chills, cp, sob, diarrhe, dysurai. on exam the pts vitals are noted for mild tachycardia, mild RUQ tenderness, no rebound/guarding otherwise. labs noted for elevated bili slightly dilate cbd duct on US the pt was admitted to PMD for further management and imaging - Physicial Exam PE: 11/25/16 16:04 see above - Medical Decision Making 11/25/16 16:04 see above Heart Score/ECG Review - ECG Impressions Comment:: Twelve-lead EKG was performed and reviewed by me. Irregularly irregular Rate of [address] changes suggestive of acute ischemia
[2016-11-23] MEDS ORDERED: morphine CARPU-JECT 2 MG/1 ML DISP.SYRIN ONE (12:02)
[2016-11-23] MEDS ORDERED: ONDANSETRON 4 MG/2 ML VIAL ONE (12:03)
[2016-11-23 12:29] LABS: BASOPHIL 2.3 % (0-2.0); EOSINOPHIL 1.5 % (0-4.5); MCH 22.4 pg (25.7-33.7); MCHC 30.4 g/dl (32.0-36.0); MEAN CELL VOLUME 73.7 fl (80-96); MEAN PLT VOLUME 8.2 fl (7.5-11.1); NEUTROPHILS 63.5 % (42.8-82.8); PLATELET COUNT 371 K/MM3 (134-434)
[2016-11-23 12:35] LABS: URINE APPEARANCE SLCLOUDY; URINE BILIRUBIN NEGATIVE (NEGATIVE); URINE BLOOD NEGATIVE (NEGATIVE); URINE COLOR DKYELLOW; URINE GLUCOSE (UA) NEGATIVE (NEGATIVE); URINE KETONE TRACE (NEGATIVE); URINE LEUK ESTERASE TRACE (NEGATIVE); URINE NITRITE NEGATIVE (NEGATIVE); URINE PROTEIN NEGATIVE (NEGATIVE); URINE UROBILINOGEN NEGATIVE mg/dL (0.2-1.0)
[2016-11-23 12:41] LABS: INR 1.77 (0.82-1.09); PROTHROMBIN TIME (PATIENT) 19.7 SEC (9.98-11.88)
[2016-11-23 12:45] LABS: URINE HYALINE CAST 74 /lpf; URINE MUCUS RARE; URINE RBC 2 /hpf (0-3); URINE WBC 2 /hpf (3-5)
[2016-11-23 12:50] LABS: ALBUMIN 3.3 g/dl (3.4-5.0); ANION GAP 13 (8-16); BILIRUBIN,TOTAL 1.5 mg/dL (0.2-1.0); CALCIUM 9.1 mg/dL (8.5-10.1); CO2 22 mmol/L (21-32); CREATININE 2.2 mg/dL (0.55-1.02); GLUCOSE,RANDOM 159 mg/dL (74-106); MAGNESIUM 2.2 mg/dL (1.8-2.4); SGOT/AST 30 U/L (15-37); SGPT/ALT 21 U/L (12-78); TOT PROT 6.8 g/dl (6.4-8.2)
[2016-11-23 12:53] LABS: ALK PHOS 185 U/L (45-117)
[2016-11-23 12:57] LABS: ANISOCYTOSIS 2+; HYPOCHROMIA 2+; MACROCYTOSIS FEW; MICROCYTOSIS 2+; TEAR DROP CELLS RARE
[2016-11-23 12:58] LABS: OVALOCYTE 1+; POLYCHROMASIA 1+
[2016-11-23 14:22] LABS: CPK 105 IU/L (26-192)
[2016-11-23 14:23] LABS: TROPONIN I < 0.02 ng/ml (0.00-0.05)
[2016-11-23] MEDS ORDERED: SODIUM CHLORIDE 500 ML IV STA (15:21)
[2016-11-23] MEDS ORDERED: FLUTICASONE PROP 0.05% 16 GM NASAL SPRAY NS PRN (17:19)
[2016-11-23] MEDS ORDERED: PNEUMOC 13-VAL CONJ-DIP CRM/PF 0.5 ML DISP.SYRIN IM ONE (18:12)
[2016-11-23] MEDS: ATORVASTATIN CA 20 MG TABLET (FP) PO SCH (22:36)
[2016-11-23] MEDS: METOPROLOL TARTRATE 50 MG TABLET (FP) PO SCH (22:36)
[2016-11-23] MEDS ORDERED: FUROSEMIDE 40 MG/4 ML INJECTABLE VIAL IVPB ONE (23:03)
[2016-11-23] MEDS ORDERED: ONDANSETRON 4 MG/2 ML VIAL IVPB PRN (23:23)
[2016-11-24] MEDS: INSULIN SLIDING SCALE (NOVOLOG) 1 VIAL SQ SCH ×3 (06:07→16:50)
[2016-11-24 08:42] LABS: BASOPHIL 1.3 % (0-2.0); EOSINOPHIL 0.8 % (0-4.5); MCH 22.7 pg (25.7-33.7); MCHC 31.1 g/dl (32.0-36.0); MEAN CELL VOLUME 72.8 fl (80-96); PLATELET COUNT 311 K/MM3 (134-434); RDW 20.7 % (11.6-15.6); WHITE BLOOD COUNT 5.3 K/mm3 (4.0-10.0)
[2016-11-24 09:04] LABS: ALBUMIN 2.9 g/dl (3.4-5.0); ANION GAP 12 (8-16); BILIRUBIN,TOTAL 1.3 mg/dL (0.2-1.0); CALCIUM 8.9 mg/dL (8.5-10.1); CO2 24 mmol/L (21-32); CREATININE 1.9 mg/dL (0.55-1.02); GLUCOSE,RANDOM 132 mg/dL (74-106); SGOT/AST 22 U/L (15-37); SGPT/ALT 18 U/L (12-78); TOT PROT 6.2 g/dl (6.4-8.2)
[2016-11-24 09:05] LABS: ALK PHOS 169 U/L (45-117)
--- NOTE | 2016-11-24 09:15 | HP ---
Admitting History and Physical - Primary Care Physician PCP: Bonnie Montiel - Admission Chief Complaint: abd pain History of Present Illness: 71 yrs old f with H/O HTn, T2DM, CKD satge 3, Chronic afib on AC, non complaint , sever Pulmonary HTN, present with Rt UQ pain for 1 day denies any fever chills, c/o nausea, no H/O diarrhea or constipation, patient also c/o worsening LE swelling, abdominal fullness and ecrese ET and orthopnea in the Ed Ct abd shows s/p Cholycystecyomy, Dilated CBD considering presentation admitted for further management and evaluation to R/O acute intrabdominal pathology, History Source: Patient - Past Medical History Cardiovascular: Yes: AFIB, CHF, HTN, Hyperlipdemia - Past Surgical History Past Surgical History: Yes: Cholecystectomy - Smoking History Smoking history: Never smoked Have you smoked in the past 12 months: No If you are a former smoker, when did you quit?: 30YRS AGO - Alcohol/Substance Use Hx Alcohol Use: No - Social History History of Recent Travel: No Home Medications - Allergies Allergies/Adverse Reactions: Allergies Allergy/AdvReac Type Severity Reaction Status Date / Time No Known Allergies Allergy Verified 11/23/16 10:36 - Home Medications Home Medications: Ambulatory Orders Atorvastatin Ca [Lipitor] 20 mg PO HS #0 11/25/14 Insulin Lispro Protamin/Lispro [Humalog Mix 75-25 Vial] 24 unit SQ DAILY Potassium Chloride 20 meq PO DAILY 05/20/16 Atorvastatin Ca [Lipitor] 20 mg PO HS tablet 10/10/16 Fluticasone Prop 0.05% Nasal [Flonase -] 1 spray NS PRN PRN #0 spray 10/10/16 Diphenhydramine HCl [Benadryl Capsule -] 25 mg PO Q8H PRN #30 tab 11/28/16 Furosemide [Lasix -] 80 mg PO DAILY #30 tablet 11/28/16 Metoprolol Tartrate [Lopressor -] 50 mg PO BID #60 tablet 11/28/16 Family Disease History - Family Disease History Family Disease History: Heart Disease: Father, Mother Review of Systems - Review of Systems Constitutional: reports: No Symptoms HENT: reports: No Symptoms Neck: reports: No Symptoms Cardiovascular: reports: Shortness of Breath. denies: Palpitations Respiratory: reports: Exercise Intolerance Gastrointestinal: reports: Abdominal Pain, Bloating, Constipation Breasts: reports: No Symptoms Reported Musculoskeletal: reports: No Symptoms Neurological: reports: No Symptoms Endocrine: reports: No Symptoms Psychiatric: reports: No Symptoms Physical Examination Vital Signs: Vital Signs Temperature 97.5 F L 11/24/16 05:40 Pulse Rate 93 H 11/24/16 05:40 Respiratory Rate 18 11/24/16 05:40 Blood Pressure 119/65 11/24/16 05:40 O2 Sat by Pulse Oximetry (%) 100 11/23/16 21:10 Elderly F looks Comfortable HEENT: Mm moist mils anemia, NECK: + JVD No Bruit CHEST: B/L decrese AE and crepts at bases CVS: S1S2 Irr ABD: Obese Rt sided pain with ventral hernia RT UQ , mild tendernes, no rebound or guarding. Bs + EXT: ++ Kavin afeet TOPPIECE CHOPPER: AOx3 non focal Labs: CBC, BMP 11/24/16 07:30 Imaging - Results X-ray: Report Reviewed (Pleural effusion) Cat Scan: Report Reviewed (ascites, pleural effusion) Other: Pending, Report Reviewed, Other (Ultrasound CBD 1.2) Problem List - Problems (1) Atrial fibrillation Assessment/Plan: Chronic atrial fibrilation rate controlled with B Blockers and pn ac at present rate controlled. Code(s): I48.91 - UNSPECIFIED ATRIAL FIBRILLATION Qualifiers: Atrial fibrillation type: unspecified Qualified Code(s): I48.91 - Unspecified atrial fibrillation (2) Diastolic CHF Assessment/Plan: Patient has sever diastolic HF on ARBs , Lasix and B Blockers with amlodipine will F/U ECHO, Cardiology consult IV lasix, considering worsening CHF symptoms will change patient status to inpatient. Code(s): I50.30 - UNSPECIFIED DIASTOLIC (CONGESTIVE) HEART FAILURE Qualifiers : Congestive heart failure chronicity: chronic Qualified Code(s): I50.32 - Chronic diastolic (congestive) heart failure (3) HTN (hypertension) Assessment/Plan: Well controlledARBs are on hold will consider holding amlodipine for LE edema. Code(s): I10 - ESSENTIAL (PRIMARY) HYPERTENSION (4) T2DM (type 2 diabetes mellitus) Assessment/Plan: Poorly controlled Optimize Glycemic control. Code(s): E11.9 - TYPE 2 DIABETES MELLITUS WITHOUT COMPLICATIONS Qualifiers: (5) Hypothyroidism Assessment/Plan: Will F/U TSH resume Levoythyroxine. Code(s): E03.9 - HYPOTHYROIDISM, UNSPECIFIED (6) Pulmonary arterial hypertension Assessment/Plan: Patient has Pulmonary HTN , never worked Up will F/U with Cardiology consult recommendations. Code(s): I27.2 - OTHER SECONDARY PULMONARY HYPERTENSION
--- NOTE | 2016-11-24 09:35 | CONSULT ---
Consult Consult Specialty:: Surgery Referred by:: Nakia Jones - History of Present Illness Chief Complaint: Abdominal pain last night . She feels better now. No nausea, no vomiting. - History Source History Provided By: Patient Limitations to Obtaining History: No Limitations - Past Medical History Cardio/Vascular: Yes: AFIB, CHF, HTN, Hyperlipdemia - Past Surgical History Past Surgical History: Yes: Appendectomy, Cholecystectomy - Alcohol/Substance Use Hx Alcohol Use: No - Smoking History Smoking history: Never smoked Have you smoked in the past 12 months: No If you are a former smoker, when did you quit?: 30YRS AGO - Social History History of Recent Travel: No Home Medications - Allergies Allergies/Adverse Reactions: Allergies Allergy/AdvReac Type Severity Reaction Status Date / Time No Known Allergies Allergy Verified 11/23/16 10:36 - Home Medications Home Medications: Ambulatory Orders Amlodipine Besylate 10 mg PO DAILY #0 11/25/14 Atorvastatin Ca [Lipitor] 20 mg PO HS #0 11/25/14 Insulin Lispro Protamin/Lispro [Humalog Mix 75-25 Vial] 24 unit SQ DAILY Metoprolol Tartrate 100 mg PO BID 05/20/16 Potassium Chloride 20 meq PO DAILY 05/20/16 Atorvastatin Ca [Lipitor] 20 mg PO HS tablet 10/10/16 Fluticasone Prop 0.05% Nasal [Flonase -] 1 spray NS PRN PRN #0 spray 10/10/16 Furosemide [Lasix -] 20 mg PO DAILY tablet 10/10/16 Metoprolol Tartrate [Lopressor -] 50 mg PO BID tablet 10/10/16 Rivaroxaban [Xarelto -] 15 mg PO DAILY tablet 10/10/16 Family Disease History - Family Disease History Family Disease History: Heart Disease: Father, Mother Review of Systems - Review of Systems Cardiovascular: reports: Edema Physical Exam Vital Signs: Vital Signs Temperature 97.5 F L 11/24/16 05:40 Pulse Rate 93 H 11/24/16 05:40 Respiratory Rate 18 11/24/16 05:40 Blood Pressure 119/65 11/24/16 05:40 O2 Sat by Pulse Oximetry (%) 100 11/23/16 21:10 Constitutional: Yes: Obese Gastrointestinal: Yes: Normal Bowel Sounds, Soft, Hernia (Patient has a right paramrdian surgical scar, secondary to an open cholecystectomy done in [place] about 35 years ago. The hernia is partially reducible, and not tender. She also has a right lower quadrant scar from her appendectomy. She has abdomianl obesity. Abdomen is soft , not tender, no nausea.) Labs: CBC, BMP 11/24/16 07:30 11/24/16 07:30 Imaging - Results Cat Scan: Report Reviewed, Image Reviewed Ultrasound: Report Reviewed, Image Reviewed (S/P Cholecystectomy, incisional hernia) Problem List - Problems (1) Abdominal pain Code(s): R10.9 - UNSPECIFIED ABDOMINAL PAIN Qualifiers: Abdominal location: right upper quadrant Qualified Code(s): R10.11 - Right upper quadrant pain (2) Ventral hernia Code(s): K43.9 - VENTRAL HERNIA WITHOUT OBSTRUCTION OR GANGRENE Qualifiers: Obstruction and gangrene presence: without obstruction or gangrene Qualified Code(s): K43.9 - Ventral hernia without obstruction or gangrene (3) Diastolic CHF Code(s): I50.30 - UNSPECIFIED DIASTOLIC (CONGESTIVE) HEART FAILURE Qualifiers : Congestive heart failure chronicity: chronic Qualified Code(s): I50.32 - Chronic diastolic (congestive) heart failure (4) Obesity Code(s): E66.9 - OBESITY, UNSPECIFIED Qualifiers: Assessment/Plan Abdominal pain, inproved. Etiology: ? Ventral hernia? ? Congestive heart failure. Patient has bilateral pleural effusion and ascites , ? secondary to heart failure , and ? pain secondary to congestion opf the liver. Does not seem to have obstruction secondary to hernis at this time. Will follow as needed.
--- NOTE | 2016-11-24 09:35 | CON.CARD ---
Consult Consult Specialty:: Cardiology - History of Present Illness Chief Complaint: abd pain History of Present Illness: Patient is a 71-year-old female with past medical history of cholecystitis, diastolic heart failure, poorly controlled diabetes, hypertension, CAD, CKD and afib who presents to the emergency department today complaining of abdominal pain, poor intake and nausea. Patient states that her pain has been worsening over the past 2 days. And the pain has become unbearable to the point where she can't sleep at night. She states that her pain is very diffuse and she feels bloated. Admits nausea, edema, vomiting, and abdominal pain/bloating. Denies fevers, chills, palpitations , shortness of breath, chest pain, dysuria, hematuria, frequency and urgency. - History Source History Provided By: Patient, Medical Record - Past Medical History Cardio/Vascular: Yes: AFIB, CHF, HTN, Hyperlipdemia - Past Surgical History Past Surgical History: Yes: Cholecystectomy - Alcohol/Substance Use Hx Alcohol Use: No - Smoking History Smoking history: Never smoked Have you smoked in the past 12 months: No If you are a former smoker, when did you quit?: 30YRS AGO - Social History History of Recent Travel: No Home Medications - Allergies Allergies/Adverse Reactions: Allergies Allergy/AdvReac Type Severity Reaction Status Date / Time No Known Allergies Allergy Verified 11/23/16 10:36 - Home Medications Home Medications: Ambulatory Orders Amlodipine Besylate 10 mg PO DAILY #0 11/25/14 Atorvastatin Ca [Lipitor] 20 mg PO HS #0 11/25/14 Insulin Lispro Protamin/Lispro [Humalog Mix 75-25 Vial] 24 unit SQ DAILY Metoprolol Tartrate 100 mg PO BID 05/20/16 Potassium Chloride 20 meq PO DAILY 05/20/16 Atorvastatin Ca [Lipitor] 20 mg PO HS tablet 10/10/16 Fluticasone Prop 0.05% Nasal [Flonase -] 1 spray NS PRN PRN #0 spray 10/10/16 Furosemide [Lasix -] 20 mg PO DAILY tablet 10/10/16 Metoprolol Tartrate [Lopressor -] 50 mg PO BID tablet 10/10/16 Rivaroxaban [Xarelto -] 15 mg PO DAILY tablet 10/10/16 Family Disease History - Family Disease History Family Disease History: Heart Disease: Father, Mother Review of Systems - Review of Systems Constitutional: reports: No Symptoms Eyes: reports: No Symptoms HENT: reports: No Symptoms Neck: reports: No Symptoms Cardiovascular: reports: Edema Gastrointestinal: reports: Abdominal Pain Genitourinary: reports: No Symptoms Breasts: reports: No Symptoms Reported Musculoskeletal: reports: No Symptoms Integumentary: reports: No Symptoms Neurological: reports: No Symptoms Endocrine: reports: No Symptoms Hematology/Lymphatic: reports: No Symptoms Psychiatric: reports: No Symptoms Vital Signs: Vital Signs Temperature 97.7 F 11/24/16 09:30 Pulse Rate 101 H 11/24/16 09:30 Respiratory Rate 18 11/24/16 09:30 Blood Pressure 107/56 11/24/16 09:30 O2 Sat by Pulse Oximetry (%) 100 11/23/16 21:10 Constitutional: Yes: Well Nourished, No Distress, Calm Eyes: Yes: WNL, Conjunctiva Clear, EOM Intact HENT: Yes: WNL, Atraumatic, Normocephalic Neck: Yes: WNL, Supple, Trachea Midline Respiratory: Yes: WNL, Regular, CTA Bilaterally Gastrointestinal: Yes: WNL, Normal Bowel Sounds Renal/: Yes: WNL Cardiovascular: Yes: Pulse Irregular Heart Sounds: Yes: S1, S2 Musculoskeletal: Yes: WNL Extremities: Yes: WNL Edema: Yes Integumentary: Yes: WNL Neurological: Yes: WNL, Alert, Oriented ...Motor Strength: WNL Psychiatric: Yes: WNL, Alert, Oriented - Other Data Labs, Other Data: CBC, BMP 11/24/16 07:30 11/24/16 07:30 INR, PTT INR 1.77 (0.82-1.09) H 11/23/16 11:55 Imaging - Results Chest X-ray: Image Reviewed (chf b effusion) EKG: Image Reviewed (low voltage af) Problem List - Problems (1) Abdominal pain Code(s): R10.9 - UNSPECIFIED ABDOMINAL PAIN Qualifiers: Abdominal location: right upper quadrant Qualified Code(s): R10.11 - Right upper quadrant pain (2) Atrial fibrillation Code(s): I48.91 - UNSPECIFIED ATRIAL FIBRILLATION Qualifiers: Atrial fibrillation type: unspecified Qualified Code(s): I48.91 - Unspecified atrial fibrillation (3) Diastolic CHF Code(s): I50.30 - UNSPECIFIED DIASTOLIC (CONGESTIVE) HEART FAILURE Qualifiers : Congestive heart failure chronicity: chronic Qualified Code(s): I50.32 - Chronic diastolic (congestive) heart failure (4) Edema extremities Code(s): R60.0 - LOCALIZED EDEMA (5) Elevated bilirubin Code(s): R17 - UNSPECIFIED JAUNDICE (6) Obesity Code(s): E66.9 - OBESITY, UNSPECIFIED Qualifiers: Obesity type: due to excess calories (7) Ventral hernia Code(s): K43.9 - VENTRAL HERNIA WITHOUT OBSTRUCTION OR GANGRENE Qualifiers: Obstruction and gangrene presence: without obstruction or gangrene Qualified Code(s): K43.9 - Ventral hernia without obstruction or gangrene (8) Acute on chronic renal failure Code(s): N17.9 - ACUTE KIDNEY FAILURE, UNSPECIFIED N18.9 - CHRONIC KIDNEY DISEASE, UNSPECIFIED Qualifiers: Chronic kidney disease stage: stage 3 (moderate) (9) Dehydration Code(s): E86.0 - DEHYDRATION (10) HTN (hypertension) Code(s): I10 - ESSENTIAL (PRIMARY) HYPERTENSION (11) Hypokalemia Code(s): E87.6 - HYPOKALEMIA (12) Hypothyroidism Code(s): E03.9 - HYPOTHYROIDISM, UNSPECIFIED (13) Muscle weakness Code(s): M62.81 - MUSCLE WEAKNESS (GENERALIZED) (14) New onset atrial fibrillation Code(s): I48.91 - UNSPECIFIED ATRIAL FIBRILLATION (15) T2DM (type 2 diabetes mellitus) Code(s): E11.9 - TYPE 2 DIABETES MELLITUS WITHOUT COMPLICATIONS Qualifiers: Assessment/Plan af decompensated chf dm abd pain htn CRI plan IV lasix gi w/u cont rate control and ac
[2016-11-24] MEDS ORDERED: FUROSEMIDE 40 MG/4 ML INJECTABLE VIAL IVPB ONE (09:45)
[2016-11-24] MEDS ORDERED: PT OWN MED DRAWER 7, Y5N ONE (09:58)
[2016-11-24] MEDS: POTASSIUM CHLORIDE TABS 10 MEQ TABLET.ER (FP) PO SCH (10:01)
[2016-11-24] MEDS: RIVAROXABAN 15 MG TABLET PO SCH (10:01)
[2016-11-24] MEDS: METOPROLOL TARTRATE 50 MG TABLET (FP) PO SCH ×2 (10:01→21:21)
[2016-11-24] MEDS: amLODIPine BESYLATE 10 MG TABLET (FP) PO SCH (10:01)
--- NOTE | 2016-11-24 11:12 | EKG ---
Test Reason : Blood Pressure : / mmHG Vent. Rate : 085 BPM Atrial Rate : 250 BPM P-R Int : 000 ms QRS Dur : 072 ms QT Int : 358 ms P-R-T Axes : 000 102 156 degrees QTc Int : 426 ms ATRIAL FIBRILLATION RIGHTWARD AXIS LOW VOLTAGE QRS SEPTAL INFARCT , AGE UNDETERMINED ABNORMAL ECG WHEN COMPARED WITH ECG OF 07-OCT-2016 22:14, SEPTAL INFARCT IS NOW PRESENT NONSPECIFIC T WAVE ABNORMALITY, WORSE IN ANTERIOR LEADS Confirmed by MONICA ABBOTT MD ([id number]) on 11/24/2016 11:12:15 AM Referred By: Confirmed By:MONICA ABBOTT MD
[2016-11-24] MEDS: FUROSEMIDE 40 MG/4 ML INJECTABLE VIAL IVPB SCH (11:22)
[2016-11-24] MEDS: diphenhydrAMINE HCL 25 MG CAPSULE (FP) PO PRN ×2 (12:24→21:21)
[2016-11-24] MEDS ORDERED: ALPRAZolam 0.25 MG TABLET PO ONE (19:15)
[2016-11-24] MEDS: ATORVASTATIN CA 20 MG TABLET (FP) PO SCH (21:21)
[2016-11-25] MEDS: INSULIN SLIDING SCALE (NOVOLOG) 1 VIAL SQ SCH ×3 (06:19→16:24)
[2016-11-25] MEDS: diphenhydrAMINE HCL 25 MG CAPSULE (FP) PO PRN ×2 (06:19→21:25)
[2016-11-25 08:51] LABS: BASOPHIL 1.2 % (0-2.0); EOSINOPHIL 2.6 % (0-4.5); MCH 22.4 pg (25.7-33.7); MCHC 30.6 g/dl (32.0-36.0); MEAN CELL VOLUME 73.3 fl (80-96); MEAN PLT VOLUME 8.2 fl (7.5-11.1); NEUTROPHILS 59.3 % (42.8-82.8); PLATELET COUNT 333 K/MM3 (134-434); RDW 20.9 % (11.6-15.6); WHITE BLOOD COUNT 5.3 K/mm3 (4.0-10.0)
[2016-11-25] MEDS ORDERED: PT OWN MED DRAWER 7, Y5N ONE (09:17)
[2016-11-25] MEDS: FUROSEMIDE 40 MG/4 ML INJECTABLE VIAL IVPB SCH (09:20)
[2016-11-25] MEDS: RIVAROXABAN 15 MG TABLET PO SCH (09:20)
[2016-11-25] MEDS: POTASSIUM CHLORIDE TABS 10 MEQ TABLET.ER (FP) PO SCH (09:20)
[2016-11-25 09:23] LABS: ANION GAP 8 (8-16); CALCIUM 8.6 mg/dL (8.5-10.1); CO2 28 mmol/L (21-32); GLUCOSE,RANDOM 120 mg/dL (74-106); SGOT/AST 24 U/L (15-37)
[2016-11-25 09:28] LABS: ALK PHOS 163 U/L (45-117); BILIRUBIN,TOTAL 1.1 mg/dL (0.2-1.0); CREATININE 2.2 mg/dL (0.55-1.02); SGPT/ALT 16 U/L (12-78); TOT PROT 6.2 g/dl (6.4-8.2)
[2016-11-25] MEDS: METOPROLOL TARTRATE 50 MG TABLET (FP) PO SCH ×2 (10:34→21:25)
[2016-11-25] MEDS: amLODIPine BESYLATE 10 MG TABLET (FP) PO SCH (10:34)
--- NOTE | 2016-11-25 11:00 | PN ---
Progress Note, Physician History of Present Illness: Patient is a 71-year-old female with past medical history of cholecystitis, diastolic heart failure, poorly controlled diabetes, hypertension, CAD, CKD and afib who presents to the emergency department today complaining of abdominal pain, poor intake and nausea. Patient states that her pain has been worsening over the past 2 days. And the pain has become unbearable to the point where she can't sleep at night. She states that her pain is very diffuse and she feels bloated. Admits nausea, edema, vomiting, and abdominal pain/bloating. Denies fevers, chills, palpitations , shortness of breath, chest pain, dysuria, hematuria, frequency and urgency. - Current Medication List Current Medications: Active Medications Amlodipine Besylate (Norvasc -) 10 mg PO DAILY [facility] Last Admin: 11/25/16 10:34 Dose: Not Given Atorvastatin Calcium (Lipitor -) 20 mg PO HS [facility] Last Admin: 11/24/16 21:21 Dose: 20 mg Diphenhydramine HCl (Benadryl -) 25 mg PO Q8H PRN PRN Reason: ITCHINESS Last Admin: 11/25/16 06:19 Dose: 25 mg Fluticasone Propionate (Flonase -) 1 spray NS DAILY PRN PRN Reason: NASAL CONGESTION Furosemide (Lasix Injection -) 40 mg IVPB DAILY [facility] Last Admin: 11/25/16 09:20 Dose: 40 mg Insulin Aspart (Novolog Vial Sliding Scale -) 1 vial SQ TIDAC [facility] PRN Reason: Protocol Last Admin: 11/25/16 06:19 Dose: 2 units Metoprolol Tartrate (Lopressor -) 50 mg PO BID [facility] Last Admin: 11/25/16 10:34 Dose: 50 mg Ondansetron HCl (Zofran Injection) 2 mg IVPB Q6H PRN PRN Reason: NAUSEA Last Admin: 11/24/16 04:35 Dose: 2 mg Potassium Chloride (K-Dur -) 20 meq PO DAILY [facility] Last Admin: 11/25/16 09:20 Dose: 20 meq Rivaroxaban (Xarelto -) 15 mg PO DAILY [facility] Last Admin: 11/25/16 09:20 Dose: 15 mg - Objective Vital Signs: Vital Signs Temperature 97.8 F 11/25/16 07:40 Pulse Rate 80 11/25/16 07:40 Respiratory Rate 18 11/25/16 07:40 Blood Pressure 116/60 11/25/16 07:40 O2 Sat by Pulse Oximetry (%) 97 11/25/16 08:41 Eyes: Yes: WNL, Conjunctiva Clear, EOM Intact HENT: Yes: WNL, Atraumatic, Normocephalic Neck: Yes: WNL, Supple, Trachea Midline Cardiovascular: Yes: WNL, Regular Rate and Rhythm Respiratory: Yes: WNL, Regular, CTA Bilaterally Gastrointestinal: Yes: WNL, Normal Bowel Sounds Genitourinary: Yes: WNL Musculoskeletal: Yes: WNL Extremities: Yes: WNL Edema: Yes Edema: LLE: 2+, RLE: 2+ Integumentary: Yes: WNL Neurological: Yes: WNL, Alert, Oriented ...Motor Strength: WNL Psychiatric: Yes: WNL Labs: CBC, BMP 11/25/16 07:00 11/25/16 07:00 INR, PTT INR 1.77 (0.82-1.09) H 11/23/16 11:55 Problem List - Problems (1) Abdominal pain Code(s): R10.9 - UNSPECIFIED ABDOMINAL PAIN Qualifiers: Abdominal location: right upper quadrant Qualified Code(s): R10.11 - Right upper quadrant pain (2) Atrial fibrillation Code(s): I48.91 - UNSPECIFIED ATRIAL FIBRILLATION Qualifiers: Atrial fibrillation type: unspecified Qualified Code(s): I48.91 - Unspecified atrial fibrillation (3) Diastolic CHF Code(s): I50.30 - UNSPECIFIED DIASTOLIC (CONGESTIVE) HEART FAILURE Qualifiers : Congestive heart failure chronicity: chronic Qualified Code(s): I50.32 - Chronic diastolic (congestive) heart failure (4) Edema extremities Code(s): R60.0 - LOCALIZED EDEMA (5) Elevated bilirubin Code(s): R17 - UNSPECIFIED JAUNDICE (6) Obesity Code(s): E66.9 - OBESITY, UNSPECIFIED Qualifiers: Obesity type: due to excess calories (7) Ventral hernia Code(s): K43.9 - VENTRAL HERNIA WITHOUT OBSTRUCTION OR GANGRENE Qualifiers: Obstruction and gangrene presence: without obstruction or gangrene Qualified Code(s): K43.9 - Ventral hernia without obstruction or gangrene (8) Acute on chronic renal failure Code(s): N17.9 - ACUTE KIDNEY FAILURE, UNSPECIFIED N18.9 - CHRONIC KIDNEY DISEASE, UNSPECIFIED Qualifiers: Chronic kidney disease stage: stage 3 (moderate) (9) Dehydration Code(s): E86.0 - DEHYDRATION (10) HTN (hypertension) Code(s): I10 - ESSENTIAL (PRIMARY) HYPERTENSION (11) Hypokalemia Code(s): E87.6 - HYPOKALEMIA (12) Hypothyroidism Code(s): E03.9 - HYPOTHYROIDISM, UNSPECIFIED (13) Muscle weakness Code(s): M62.81 - MUSCLE WEAKNESS (GENERALIZED) (14) New onset atrial fibrillation Code(s): I48.91 - UNSPECIFIED ATRIAL FIBRILLATION (15) T2DM (type 2 diabetes mellitus) Code(s): E11.9 - TYPE 2 DIABETES MELLITUS WITHOUT COMPLICATIONS Qualifiers: Assessment/Plan af decompensated chf dm abd pain htn CRI plan IV lasix nonitor Cr. l ext edema improving . will d/c Norvasc due to hypotension. gi w/u cont rate control and ac
[2016-11-25] MEDS ORDERED: INSULIN (NOVOLOG) ASPART 100 UNITS/ML 10ML VIAL ONE (11:35)
--- NOTE | 2016-11-25 18:36 | PN ---
Progress Note, Physician Chief Complaint: feels better History of Present Illness: 71 yrs old F with dHF, Chronic Afib, T2DM , diabetic Nephropathy CKD srage 3, chronic anemia, HTN present with abd pain most likely due to ventral hernia , also CHF exacerbation with volume overload. - Current Medication List Current Medications: Active Medications Alprazolam (Xanax -) 0.25 mg PO Q8H PRN PRN Reason: ANXIETY Atorvastatin Calcium (Lipitor -) 20 mg PO HS [facility] Last Admin: 11/24/16 21:21 Dose: 20 mg Diphenhydramine HCl (Benadryl -) 25 mg PO Q8H PRN PRN Reason: ITCHINESS Last Admin: 11/25/16 06:19 Dose: 25 mg Fluticasone Propionate (Flonase -) 1 spray NS DAILY PRN PRN Reason: NASAL CONGESTION Furosemide (Lasix Injection -) 40 mg IVPB DAILY [facility] Last Admin: 11/25/16 09:20 Dose: 40 mg Insulin Aspart (Novolog Vial Sliding Scale -) 1 vial SQ TIDAC [facility] PRN Reason: Protocol Last Admin: 11/25/16 16:24 Dose: Not Given Metoprolol Tartrate (Lopressor -) 50 mg PO BID [facility] Last Admin: 11/25/16 10:34 Dose: 50 mg Ondansetron HCl (Zofran Injection) 2 mg IVPB Q6H PRN PRN Reason: NAUSEA Last Admin: 11/24/16 04:35 Dose: 2 mg Potassium Chloride (K-Dur -) 20 meq PO DAILY [facility] Last Admin: 11/25/16 09:20 Dose: 20 meq Rivaroxaban (Xarelto -) 15 mg PO DAILY [facility] Last Admin: 11/25/16 09:20 Dose: 15 mg - Objective Vital Signs: Vital Signs Temperature 97.7 F 11/25/16 12:00 Pulse Rate 85 11/25/16 12:00 Respiratory Rate 18 11/25/16 12:00 Blood Pressure 117/61 11/25/16 12:00 O2 Sat by Pulse Oximetry (%) 97 11/25/16 15:47 Elderly F looks Comfortable HEENT: Mm moist mils anemia, NECK: + JVD No Bruit CHEST: B/L decrese AE and crepts at bases CVS: S1S2 Irr ABD: Obese Rt sided UQ ventral hernia, no rebound or guarding. Bs + EXT: ++ Edema feet INFORMATICS SCIENTIST: AOx3 non focal Labs: CBC, BMP 11/25/16 07:00 11/25/16 07:00 INR, PTT INR 1.77 (0.82-1.09) H 11/23/16 11:55 - ....Imaging EKG: Report Reviewed (Afib with HR [address] changes) Problem List - Problems (1) Atrial fibrillation Assessment/Plan: Chronic atrial fibrilation rate controlled with B Blockers and pn ac at present rate controlled. Code(s): I48.91 - UNSPECIFIED ATRIAL FIBRILLATION Qualifiers: Atrial fibrillation type: unspecified Qualified Code(s): I48.91 - Unspecified atrial fibrillation (2) Diastolic CHF Assessment/Plan: Patient has sever diastolic HF on ARBs , Lasix and B Blockers with amlodipine will F/U ECHO, Cardiology consult IV lasix, considering worsening CHF symptoms will change patient status to inpatient. Code(s): I50.30 - UNSPECIFIED DIASTOLIC (CONGESTIVE) HEART FAILURE Qualifiers : Congestive heart failure chronicity: chronic Qualified Code(s): I50.32 - Chronic diastolic (congestive) heart failure (3) HTN (hypertension) Assessment/Plan: Well controlledARBs are on hold will hold amlodipine for LE edema. Code(s): I10 - ESSENTIAL (PRIMARY) HYPERTENSION (4) T2DM (type 2 diabetes mellitus) Assessment/Plan: Poorly controlled Optimize Glycemic control. Code(s): E11.9 - TYPE 2 DIABETES MELLITUS WITHOUT COMPLICATIONS Qualifiers: (5) Hypothyroidism Assessment/Plan: Will F/U TSH resume Levoythyroxine. Code(s): E03.9 - HYPOTHYROIDISM, UNSPECIFIED (6) Pulmonary arterial hypertension Assessment/Plan: Patient has Pulmonary HTN , never worked Up will F/U with Cardiology consult recommendations. consider pulmonary work up to R/O HILARIA Code(s): I27.2 - OTHER SECONDARY PULMONARY HYPERTENSION (7) CKD stage 3 due to type 2 diabetes mellitus Assessment/Plan: renal functionare stable Code(s): E11.22 - TYPE 2 DIABETES MELLITUS W DIABETIC CHRONIC KIDNEY DISEASE N18.3 - CHRONIC KIDNEY DISEASE, STAGE 3 (MODERATE)
--- NOTE | 2016-11-25 19:08 | PN ---
Progress Note, Physician - Current Medication List Current Medications: Active Medications Alprazolam (Xanax -) 0.25 mg PO Q8H PRN PRN Reason: ANXIETY Atorvastatin Calcium (Lipitor -) 20 mg PO HS [facility] Last Admin: 11/24/16 21:21 Dose: 20 mg Diphenhydramine HCl (Benadryl -) 25 mg PO Q8H PRN PRN Reason: ITCHINESS Last Admin: 11/25/16 06:19 Dose: 25 mg Fluticasone Propionate (Flonase -) 1 spray NS DAILY PRN PRN Reason: NASAL CONGESTION Furosemide (Lasix Injection -) 40 mg IVPB DAILY [facility] Last Admin: 11/25/16 09:20 Dose: 40 mg Insulin Aspart (Novolog Vial Sliding Scale -) 1 vial SQ TIDAC [facility] PRN Reason: Protocol Last Admin: 11/25/16 16:24 Dose: Not Given Metoprolol Tartrate (Lopressor -) 50 mg PO BID [facility] Last Admin: 11/25/16 10:34 Dose: 50 mg Ondansetron HCl (Zofran Injection) 2 mg IVPB Q6H PRN PRN Reason: NAUSEA Last Admin: 11/24/16 04:35 Dose: 2 mg Potassium Chloride (K-Dur -) 20 meq PO DAILY [facility] Last Admin: 11/25/16 09:20 Dose: 20 meq Rivaroxaban (Xarelto -) 15 mg PO DAILY [facility] Last Admin: 11/25/16 09:20 Dose: 15 mg - Objective Vital Signs: Vital Signs Temperature 97.7 F 11/25/16 12:00 Pulse Rate 85 11/25/16 12:00 Respiratory Rate 18 11/25/16 12:00 Blood Pressure 117/61 11/25/16 12:00 O2 Sat by Pulse Oximetry (%) 97 11/25/16 15:47 Labs: CBC, BMP 11/25/16 07:00 11/25/16 07:00 INR, PTT INR 1.77 (0.82-1.09) H 11/23/16 11:55 Problem List - Problems (1) Abdominal pain Code(s): R10.9 - UNSPECIFIED ABDOMINAL PAIN Qualifiers: Abdominal location: right upper quadrant Qualified Code(s): R10.11 - Right upper quadrant pain (2) Ventral hernia Code(s): K43.9 - VENTRAL HERNIA WITHOUT OBSTRUCTION OR GANGRENE Qualifiers: Obstruction and gangrene presence: without obstruction or gangrene Qualified Code(s): K43.9 - Ventral hernia without obstruction or gangrene (3) Diastolic CHF Code(s): I50.30 - UNSPECIFIED DIASTOLIC (CONGESTIVE) HEART FAILURE Qualifiers : Congestive heart failure chronicity: chronic Qualified Code(s): I50.32 - Chronic diastolic (congestive) heart failure (4) Obesity Code(s): E66.9 - OBESITY, UNSPECIFIED Qualifiers: Assessment/Plan Patient is better , still nauseous, no abdominal tenderness. No acute surgical condition at this time. Congestive heart failure.
[2016-11-25] MEDS: ATORVASTATIN CA 20 MG TABLET (FP) PO SCH (21:25)
[2016-11-25] MEDS: ALPRAZolam 0.25 MG TABLET PO PRN (21:25)
[2016-11-26] MEDS: INSULIN SLIDING SCALE (NOVOLOG) 1 VIAL SQ SCH ×3 (06:22→16:55)
[2016-11-26 07:41] LABS: BASOPHIL 1.4 % (0-2.0); MCH 22.3 pg (25.7-33.7); MCHC 30.4 g/dl (32.0-36.0); MEAN CELL VOLUME 73.4 fl (80-96); NEUTROPHILS 54.8 % (42.8-82.8); PLATELET COUNT 318 K/MM3 (134-434); RDW 20.8 % (11.6-15.6); WHITE BLOOD COUNT 5.3 K/mm3 (4.0-10.0)
[2016-11-26 07:58] LABS: ALBUMIN 3.1 g/dl (3.4-5.0); ANION GAP 9 (8-16); BILIRUBIN,TOTAL 1.3 mg/dL (0.2-1.0); CALCIUM 9.2 mg/dL (8.5-10.1); CO2 25 mmol/L (21-32); CREATININE 2.3 mg/dL (0.55-1.02); GLUCOSE,RANDOM 127 mg/dL (74-106); SGOT/AST 25 U/L (15-37); SGPT/ALT 19 U/L (12-78); TOT PROT 6.3 g/dl (6.4-8.2)
[2016-11-26 07:59] LABS: ALK PHOS 177 U/L (45-117)
--- NOTE | 2016-11-26 08:53 | PN ---
Progress Note, Physician Chief Complaint: feels better less LE Swelling History of Present Illness: 71 yrs old F with dHF, Chronic Afib, T2DM , diabetic Nephropathy CKD srage 3, chronic anemia, HTN present with abd pain most likely due to ventral hernia , also CHF exacerbation with volume overload. - Current Medication List Current Medications: Active Medications Alprazolam (Xanax -) 0.25 mg PO Q8H PRN PRN Reason: ANXIETY Last Admin: 11/25/16 21:25 Dose: 0.25 mg Atorvastatin Calcium (Lipitor -) 20 mg PO HS [facility] Last Admin: 11/25/16 21:25 Dose: 20 mg Diphenhydramine HCl (Benadryl -) 25 mg PO Q8H PRN PRN Reason: ITCHINESS Last Admin: 11/25/16 21:25 Dose: 25 mg Fluticasone Propionate (Flonase -) 1 spray NS DAILY PRN PRN Reason: NASAL CONGESTION Furosemide (Lasix Injection -) 40 mg IVPB DAILY [facility] Last Admin: 11/25/16 09:20 Dose: 40 mg Insulin Aspart (Novolog Vial Sliding Scale -) 1 vial SQ TIDAC [facility] PRN Reason: Protocol Last Admin: 11/26/16 06:22 Dose: Not Given Metoprolol Tartrate (Lopressor -) 50 mg PO BID [facility] Last Admin: 11/25/16 21:25 Dose: 50 mg Ondansetron HCl (Zofran Injection) 2 mg IVPB Q6H PRN PRN Reason: NAUSEA Last Admin: 11/24/16 04:35 Dose: 2 mg Potassium Chloride (K-Dur -) 20 meq PO DAILY [facility] Last Admin: 11/25/16 09:20 Dose: 20 meq Rivaroxaban (Xarelto -) 15 mg PO DAILY [facility] Last Admin: 11/25/16 09:20 Dose: 15 mg - Objective Vital Signs: Vital Signs Temperature 97.5 F L 11/26/16 06:00 Pulse Rate 90 11/26/16 06:00 Respiratory Rate 14 11/26/16 06:00 Blood Pressure 108/47 11/26/16 06:00 O2 Sat by Pulse Oximetry (%) 97 11/25/16 15:47 Elderly F looks Comfortable HEENT: Mm moist mils anemia, NECK: + JVD No Bruit CHEST: B/L decrese AE and crepts at bases CVS: S1S2 Irr ABD: Obese ,ventral hernia RT UQ , mild tendernes, no rebound or guarding. Bs + EXT: ++ Edema feet FLAT FINISHER: AOx3 non focal Labs: CBC, BMP 11/26/16 06:00 11/26/16 06:00 INR, PTT INR 1.77 (0.82-1.09) H 11/23/16 11:55 Problem List - Problems (1) Atrial fibrillation Assessment/Plan: Chronic atrial fibrilation rate controlled with B Blockers and pn ac at present rate controlled. Code(s): I48.91 - UNSPECIFIED ATRIAL FIBRILLATION Qualifiers: Atrial fibrillation type: unspecified Qualified Code(s): I48.91 - Unspecified atrial fibrillation (2) Diastolic CHF Assessment/Plan: Patient has sever diastolic HF on ARBs , Lasix and B Blockers with amlodipine will F/U ECHO, Cardiology consult IV lasix,daily wt F/U Cardiology recomondatins. Code(s): I50.30 - UNSPECIFIED DIASTOLIC (CONGESTIVE) HEART FAILURE Qualifiers : Congestive heart failure chronicity: chronic Qualified Code(s): I50.32 - Chronic diastolic (congestive) heart failure (3) HTN (hypertension) Assessment/Plan: Well controlledARBs are on hold will hold amlodipine for LE edema. Code(s): I10 - ESSENTIAL (PRIMARY) HYPERTENSION (4) T2DM (type 2 diabetes mellitus) Assessment/Plan: Poorly controlled Optimize Glycemic control. Code(s): E11.9 - TYPE 2 DIABETES MELLITUS WITHOUT COMPLICATIONS Qualifiers: (5) Hypothyroidism Assessment/Plan: Will F/U TSH resume Levoythyroxine. Code(s): E03.9 - HYPOTHYROIDISM, UNSPECIFIED (6) CKD stage 3 due to type 2 diabetes mellitus Assessment/Plan: renal function are stable F/U Nephrology recommendations Code(s): E11.22 - TYPE 2 DIABETES MELLITUS W DIABETIC CHRONIC KIDNEY DISEASE N18.3 - CHRONIC KIDNEY DISEASE, STAGE 3 (MODERATE) (7) Pulmonary arterial hypertension Assessment/Plan: Patient has Pulmonary HTN , never worked Up will F/U with Cardiology consult recommendations. consider pulmonary work up to R/O HILARIA Code(s): I27.2 - OTHER SECONDARY PULMONARY HYPERTENSION
--- NOTE | 2016-11-26 09:00 | PN ---
Progress Note, Physician History of Present Illness: Patient is a 71-year-old female with past medical history of cholecystitis, diastolic heart failure, poorly controlled diabetes, hypertension, CAD, CKD and afib who presents to the emergency department today complaining of abdominal pain, poor intake and nausea. Patient states that her pain has been worsening over the past 2 days. And the pain has become unbearable to the point where she can't sleep at night. She states that her pain is very diffuse and she feels bloated. Admits nausea, edema, vomiting, and abdominal pain/bloating. Denies fevers, chills, palpitations , shortness of breath, chest pain, dysuria, hematuria, frequency and urgency. - Current Medication List Current Medications: Active Medications Alprazolam (Xanax -) 0.25 mg PO Q8H PRN PRN Reason: ANXIETY Last Admin: 11/25/16 21:25 Dose: 0.25 mg Atorvastatin Calcium (Lipitor -) 20 mg PO HS [facility] Last Admin: 11/25/16 21:25 Dose: 20 mg Diphenhydramine HCl (Benadryl -) 25 mg PO Q8H PRN PRN Reason: ITCHINESS Last Admin: 11/25/16 21:25 Dose: 25 mg Fluticasone Propionate (Flonase -) 1 spray NS DAILY PRN PRN Reason: NASAL CONGESTION Furosemide (Lasix Injection -) 40 mg IVPB DAILY [facility] Last Admin: 11/25/16 09:20 Dose: 40 mg Insulin Aspart (Novolog Vial Sliding Scale -) 1 vial SQ TIDAC [facility] PRN Reason: Protocol Last Admin: 11/26/16 06:22 Dose: Not Given Metoprolol Tartrate (Lopressor -) 50 mg PO BID [facility] Last Admin: 11/25/16 21:25 Dose: 50 mg Ondansetron HCl (Zofran Injection) 2 mg IVPB Q6H PRN PRN Reason: NAUSEA Last Admin: 11/24/16 04:35 Dose: 2 mg Potassium Chloride (K-Dur -) 20 meq PO DAILY [facility] Last Admin: 11/25/16 09:20 Dose: 20 meq Rivaroxaban (Xarelto -) 15 mg PO DAILY [facility] Last Admin: 11/25/16 09:20 Dose: 15 mg - Objective Vital Signs: Vital Signs Temperature 97.5 F L 11/26/16 06:00 Pulse Rate 90 11/26/16 06:00 Respiratory Rate 14 11/26/16 06:00 Blood Pressure 108/47 11/26/16 06:00 O2 Sat by Pulse Oximetry (%) 97 11/25/16 15:47 Eyes: Yes: WNL, Conjunctiva Clear, EOM Intact HENT: Yes: WNL, Atraumatic, Normocephalic Neck: Yes: WNL, Supple, Trachea Midline Cardiovascular: Yes: WNL, Regular Rate and Rhythm Respiratory: Yes: WNL, Regular, CTA Bilaterally Gastrointestinal: Yes: WNL, Normal Bowel Sounds Genitourinary: Yes: WNL Musculoskeletal: Yes: WNL Edema: Yes Integumentary: Yes: WNL Neurological: Yes: WNL, Alert, Oriented ...Motor Strength: WNL Psychiatric: Yes: WNL Labs: CBC, BMP 11/26/16 06:00 11/26/16 06:00 INR, PTT INR 1.77 (0.82-1.09) H 11/23/16 11:55 Problem List - Problems (1) Abdominal pain Code(s): R10.9 - UNSPECIFIED ABDOMINAL PAIN Qualifiers: Abdominal location: right upper quadrant Qualified Code(s): R10.11 - Right upper quadrant pain (2) Atrial fibrillation Code(s): I48.91 - UNSPECIFIED ATRIAL FIBRILLATION Qualifiers: Atrial fibrillation type: unspecified Qualified Code(s): I48.91 - Unspecified atrial fibrillation (3) Diastolic CHF Code(s): I50.30 - UNSPECIFIED DIASTOLIC (CONGESTIVE) HEART FAILURE Qualifiers : Congestive heart failure chronicity: chronic Qualified Code(s): I50.32 - Chronic diastolic (congestive) heart failure (4) Edema extremities Code(s): R60.0 - LOCALIZED EDEMA (5) Elevated bilirubin Code(s): R17 - UNSPECIFIED JAUNDICE (6) Obesity Code(s): E66.9 - OBESITY, UNSPECIFIED Qualifiers: Obesity type: due to excess calories (7) Ventral hernia Code(s): K43.9 - VENTRAL HERNIA WITHOUT OBSTRUCTION OR GANGRENE Qualifiers: Obstruction and gangrene presence: without obstruction or gangrene Qualified Code(s): K43.9 - Ventral hernia without obstruction or gangrene (8) Acute on chronic renal failure Code(s): N17.9 - ACUTE KIDNEY FAILURE, UNSPECIFIED N18.9 - CHRONIC KIDNEY DISEASE, UNSPECIFIED Qualifiers: Chronic kidney disease stage: stage 3 (moderate) (9) Dehydration Code(s): E86.0 - DEHYDRATION (10) HTN (hypertension) Code(s): I10 - ESSENTIAL (PRIMARY) HYPERTENSION (11) Hypokalemia Code(s): E87.6 - HYPOKALEMIA (12) Hypothyroidism Code(s): E03.9 - HYPOTHYROIDISM, UNSPECIFIED (13) Muscle weakness Code(s): M62.81 - MUSCLE WEAKNESS (GENERALIZED) (14) New onset atrial fibrillation Code(s): I48.91 - UNSPECIFIED ATRIAL FIBRILLATION (15) T2DM (type 2 diabetes mellitus) Code(s): E11.9 - TYPE 2 DIABETES MELLITUS WITHOUT COMPLICATIONS Qualifiers: Assessment/Plan af decompensated chf dm abd pain htn CRI plan IV lasix nonitor Cr. l ext edema improving . will d/c Norvasc due to hypotension. gi w/u cont rate control and ac
[2016-11-26] MEDS ORDERED: PT OWN MED DRAWER 7, Y5N ONE (10:30)
[2016-11-26] MEDS: POTASSIUM CHLORIDE TABS 10 MEQ TABLET.ER (FP) PO SCH (10:32)
[2016-11-26] MEDS: RIVAROXABAN 15 MG TABLET PO SCH (10:32)
[2016-11-26] MEDS: METOPROLOL TARTRATE 50 MG TABLET (FP) PO SCH ×2 (10:32→21:29)
[2016-11-26] MEDS: FUROSEMIDE 40 MG/4 ML INJECTABLE VIAL IVPB SCH (10:32)
[2016-11-26 11:16] VITALS: BMI 43.5
--- NOTE | 2016-11-26 11:16 | CON.NEP ---
Consult Consult Specialty:: Nephrology Referred by:: Dr. Yee Reason for Consultation:: PERI/CKD - History of Present Illness Chief Complaint: SOB/N/V History of Present Illness: This is a 71 year old woman with PMhx of CKD Stage 4 (baseline Cr 1.6-1.9 based on prior records), CAD, CHF, Afib who presented with complaints of Nausea and vomiting and found to have CHF exacerbation with BUN/Cr of 33/2.3. Pt denies any history of CKD, kidney stones, recent IV contrast exposure. No NSAID use. On low dose lasix at home. No Chest pain, abd pain, N/v/D now. SOB is improving. On IV lasix. - History Source History Provided By: Patient Limitations to Obtaining History: No Limitations - Past Medical History Cardio/Vascular: Yes: AFIB, CHF, HTN, Hyperlipdemia - Past Surgical History Past Surgical History: Yes: Cholecystectomy - Alcohol/Substance Use Hx Alcohol Use: No - Smoking History Smoking history: Never smoked Have you smoked in the past 12 months: No If you are a former smoker, when did you quit?: 30YRS AGO - Social History History of Recent Travel: No Home Medications - Allergies Allergies/Adverse Reactions: Allergies Allergy/AdvReac Type Severity Reaction Status Date / Time No Known Allergies Allergy Verified 11/23/16 10:36 - Home Medications Home Medications: Ambulatory Orders Amlodipine Besylate 10 mg PO DAILY #0 11/25/14 Atorvastatin Ca [Lipitor] 20 mg PO HS #0 11/25/14 Insulin Lispro Protamin/Lispro [Humalog Mix 75-25 Vial] 24 unit SQ DAILY Metoprolol Tartrate 100 mg PO BID 05/20/16 Potassium Chloride 20 meq PO DAILY 05/20/16 Atorvastatin Ca [Lipitor] 20 mg PO HS tablet 10/10/16 Fluticasone Prop 0.05% Nasal [Flonase -] 1 spray NS PRN PRN #0 spray 10/10/16 Furosemide [Lasix -] 20 mg PO DAILY tablet 10/10/16 Metoprolol Tartrate [Lopressor -] 50 mg PO BID tablet 10/10/16 Rivaroxaban [Xarelto -] 15 mg PO DAILY tablet 10/10/16 Family Disease History - Family Disease History Family Disease History: Heart Disease: Father, Mother Review of Systems - Review of Systems Constitutional: reports: No Symptoms Eyes: reports: No Symptoms HENT: reports: No Symptoms Neck: reports: No Symptoms Cardiovascular: reports: Edema, Shortness of Breath Respiratory: reports: SOB, Wheezing Gastrointestinal: reports: No Symptoms Genitourinary: reports: No Symptoms Musculoskeletal: reports: No Symptoms Integumentary: reports: No Symptoms Neurological: reports: No Symptoms Endocrine: reports: No Symptoms Nephrology Consult - Height Height: 5 ft 1 in - Weight Weight: 230 lb 11.2 oz - BMI Body Mass Index (BMI): 43.5 - Lab Results Anion Gap: Anion Gap Anion Gap 9 (8-16) 11/26/16 06:00 - Imaging Chest X-ray: Pending - Physical Examination Vital Signs: Vital Signs Temperature 97.4 F L 11/26/16 09:22 Pulse Rate 100 H 11/26/16 09:22 Respiratory Rate 18 11/26/16 09:22 Blood Pressure 113/55 11/26/16 09:22 O2 Sat by Pulse Oximetry (%) 96 11/26/16 09:00 Constitutional: Yes: Well Nourished, No Distress HENT: Yes: Atraumatic Neck: Yes: Supple Cardiovascular: Yes: Regular Rate and Rhythm. No: Murmur, Rub Respiratory: Yes: Regular, CTA Bilaterally Gastrointestinal: Yes: Normal Bowel Sounds, Soft, Abdomen, Obese. No: Tenderness Renal/: No: Bladder Distention, CVA Tenderness - Left, CVA Tenderness - Right , Luo Present Edema: No Neurological: Yes: Alert, Oriented Problem List - Problems (1) Atrial fibrillation Code(s): I48.91 - UNSPECIFIED ATRIAL FIBRILLATION Qualifiers: Atrial fibrillation type: unspecified Qualified Code(s): I48.91 - Unspecified atrial fibrillation (2) Diastolic CHF Code(s): I50.30 - UNSPECIFIED DIASTOLIC (CONGESTIVE) HEART FAILURE Qualifiers : Congestive heart failure chronicity: chronic Qualified Code(s): I50.32 - Chronic diastolic (congestive) heart failure (3) Edema extremities Code(s): R60.0 - LOCALIZED EDEMA (4) Obesity Code(s): E66.9 - OBESITY, UNSPECIFIED Qualifiers: Obesity type: due to excess calories (5) Acute on chronic renal failure Code(s): N17.9 - ACUTE KIDNEY FAILURE, UNSPECIFIED N18.9 - CHRONIC KIDNEY DISEASE, UNSPECIFIED Qualifiers: Chronic kidney disease stage: stage 3 (moderate) (6) HTN (hypertension) Code(s): I10 - ESSENTIAL (PRIMARY) HYPERTENSION Assessment/Plan 71 year old woman with PMhx of CKD Stage 4 (baseline Cr 1.6-1.9 based on prior records), CAD, CHF, Afib who presented with complaints of Nausea and vomiting and found to have CHF exacerbation with BUN/Cr of 33/2.3. #PERI on CKD Etiology of PERI is likely hemodynamic in setting of CHF/diuretics Continue IV lasix for now as pt with clinical improvement hold starting JOSH/ARB at this time ? etiology of CKD, check SPEP, Hepatitis Panel, UPCR Check Renal US to access texture and size of kidney Trend BUN/Cr #Acute Diastolic CHF continue IV Lasix Trend daily weights pt will likely need to be on higher dose of oral lasix on discharge Cardiology follow up #Hypertension Bp is at or below goal continue current BP meds and diuretics Thank you Javed Douglass DO
[2016-11-26] MEDS ORDERED: INSULIN (NOVOLOG) ASPART 100 UNITS/ML 10ML VIAL ONE (11:32)
[2016-11-26] MEDS: MAGNESIUM HYDROX 2400MG/30ML ORAL SUSPENSION 30 ML CUP PO PRN (11:40)
[2016-11-26] MEDS: diphenhydrAMINE HCL 25 MG CAPSULE (FP) PO PRN (21:28)
[2016-11-26] MEDS: ATORVASTATIN CA 20 MG TABLET (FP) PO SCH (21:28)
[2016-11-26] MEDS: ALPRAZolam 0.25 MG TABLET PO PRN (21:28)
[2016-11-27] MEDS: INSULIN SLIDING SCALE (NOVOLOG) 1 VIAL SQ SCH ×3 (06:01→17:31)
[2016-11-27 08:06] LABS: BASOPHIL 1.8 % (0-2.0); EOSINOPHIL 2.4 % (0-4.5); MCH 22.4 pg (25.7-33.7); MCHC 30.6 g/dl (32.0-36.0); MEAN CELL VOLUME 73.1 fl (80-96); MEAN PLT VOLUME 8.2 fl (7.5-11.1); NEUTROPHILS 60.8 % (42.8-82.8); PLATELET COUNT 323 K/MM3 (134-434); RDW 20.8 % (11.6-15.6); WHITE BLOOD COUNT 5.5 K/mm3 (4.0-10.0)
[2016-11-27 08:52] LABS: ALK PHOS 171 U/L (45-117); ANION GAP 8 (8-16); BILIRUBIN,TOTAL 1.4 mg/dL (0.2-1.0); CALCIUM 9.2 mg/dL (8.5-10.1); CO2 26 mmol/L (21-32); CREATININE 2.1 mg/dL (0.55-1.02); GLUCOSE,RANDOM 116 mg/dL (74-106); MAGNESIUM 2.5 mg/dL (1.8-2.4); PHOSPHOROUS 2.8 mg/dL (2.5-4.9); SGOT/AST 25 U/L (15-37); SGPT/ALT 18 U/L (12-78); TOT PROT 6.2 g/dl (6.4-8.2)
[2016-11-27] MEDS ORDERED: PT OWN MED DRAWER 7, Y5N ONE (10:15)
[2016-11-27] MEDS: POTASSIUM CHLORIDE TABS 10 MEQ TABLET.ER (FP) PO SCH (10:18)
[2016-11-27] MEDS: RIVAROXABAN 15 MG TABLET PO SCH (10:18)
[2016-11-27] MEDS: METOPROLOL TARTRATE 50 MG TABLET (FP) PO SCH ×2 (10:18→21:13)
[2016-11-27] MEDS ORDERED: INSULIN (NOVOLOG) ASPART 100 UNITS/ML 10ML VIAL ONE (11:32)
[2016-11-27] MEDS: FUROSEMIDE 40 MG/4 ML INJECTABLE VIAL IVPB SCH (12:37)
[2016-11-27] MEDS: FUROSEMIDE 40 MG TABLET (FP) PO SCH (13:22)
--- NOTE | 2016-11-27 14:32 | PN ---
Progress Note, Physician Chief Complaint: feels better less LE Swelling History of Present Illness: 71 yrs old F with dHF, Chronic Afib, T2DM , diabetic Nephropathy CKD srage 3, chronic anemia, HTN present with abd pain most likely due to ventral hernia , also CHF exacerbation with volume overload. - Current Medication List Current Medications: Active Medications Alprazolam (Xanax -) 0.25 mg PO Q8H PRN PRN Reason: ANXIETY Last Admin: 11/26/16 21:28 Dose: 0.25 mg Atorvastatin Calcium (Lipitor -) 20 mg PO HS [facility] Last Admin: 11/26/16 21:28 Dose: 20 mg Diphenhydramine HCl (Benadryl -) 25 mg PO Q8H PRN PRN Reason: ITCHINESS Last Admin: 11/26/16 21:28 Dose: 25 mg Fluticasone Propionate (Flonase -) 1 spray NS DAILY PRN PRN Reason: NASAL CONGESTION Furosemide (Lasix -) 80 mg PO DAILY [facility] Last Admin: 11/27/16 13:22 Dose: 80 mg Insulin Aspart (Novolog Vial Sliding Scale -) 1 vial SQ TIDAC [facility] PRN Reason: Protocol Last Admin: 11/27/16 11:35 Dose: 2 units Magnesium Hydroxide (Milk Of Magnesia -) 30 ml PO PRN PRN PRN Reason: CONSTIPATION Last Admin: 11/26/16 11:40 Dose: 30 ml Metoprolol Tartrate (Lopressor -) 50 mg PO BID [facility] Last Admin: 11/27/16 10:18 Dose: 50 mg Ondansetron HCl (Zofran Injection) 2 mg IVPB Q6H PRN PRN Reason: NAUSEA Last Admin: 11/24/16 04:35 Dose: 2 mg Potassium Chloride (K-Dur -) 20 meq PO DAILY [facility] Last Admin: 11/27/16 10:18 Dose: 20 meq Rivaroxaban (Xarelto -) 15 mg PO DAILY [facility] Last Admin: 11/27/16 10:18 Dose: 15 mg - Objective Vital Signs: Vital Signs Temperature 98 F 11/27/16 13:47 Pulse Rate 87 11/27/16 13:47 Respiratory Rate 20 11/27/16 13:47 Blood Pressure 92/64 11/27/16 13:47 O2 Sat by Pulse Oximetry (%) 96 11/26/16 21:00 Elderly F looks Comfortable HEENT: Mm moist mils anemia, NECK: + JVD No Bruit CHEST: B/L decrese AE and crepts at bases CVS: S1S2 Irr ABD: Obese ,ventral hernia RT UQ , mild tendernes, no rebound or guarding. Bs + EXT: ++ Edema feet, less blisters formation HUNTER SKIN DIVER: AOx3 non focal Labs: CBC, BMP 11/27/16 06:00 11/27/16 06:00 INR, PTT INR 1.77 (0.82-1.09) H 11/23/16 11:55 Problem List - Problems (1) Atrial fibrillation Assessment/Plan: Chronic atrial fibrilation rate controlled with B Blockers and pn ac at present rate controlled. Code(s): I48.91 - UNSPECIFIED ATRIAL FIBRILLATION Qualifiers: Atrial fibrillation type: unspecified Qualified Code(s): I48.91 - Unspecified atrial fibrillation (2) Diastolic CHF Assessment/Plan: Patient has sever diastolic HF on ARBs , Lasix and B Blockers with amlodipine will F/U ECHO, Cardiology consult IV lasix,daily wt F/U Cardiology recommendations. Code(s): I50.30 - UNSPECIFIED DIASTOLIC (CONGESTIVE) HEART FAILURE Qualifiers : Congestive heart failure chronicity: chronic Qualified Code(s): I50.32 - Chronic diastolic (congestive) heart failure (3) HTN (hypertension) Assessment/Plan: Well controlledARBs are on hold will hold amlodipine for LE edema. Code(s): I10 - ESSENTIAL (PRIMARY) HYPERTENSION (4) T2DM (type 2 diabetes mellitus) Assessment/Plan: Optimize Glycemic control. Code(s): E11.9 - TYPE 2 DIABETES MELLITUS WITHOUT COMPLICATIONS Qualifiers: (5) Hypothyroidism Assessment/Plan: Will F/U TSH resume Levoythyroxine. Code(s): E03.9 - HYPOTHYROIDISM, UNSPECIFIED (6) CKD stage 3 due to type 2 diabetes mellitus Assessment/Plan: renal function are stable F/U Nephrology recommendations Code(s): E11.22 - TYPE 2 DIABETES MELLITUS W DIABETIC CHRONIC KIDNEY DISEASE N18.3 - CHRONIC KIDNEY DISEASE, STAGE 3 (MODERATE) (7) Pleural effusion due to CHF (congestive heart failure) Code(s): I50.9 - HEART FAILURE, UNSPECIFIED (8) Pulmonary arterial hypertension Assessment/Plan: Patient has Pulmonary HTN , never worked Up will F/U with Cardiology consult recommendations. consider pulmonary work up to R/O HILARIA Code(s): I27.2 - OTHER SECONDARY PULMONARY HYPERTENSION
--- NOTE | 2016-11-27 14:43 | PN ---
Progress Note, Physician History of Present Illness: Patient is a 71-year-old female with past medical history of cholecystitis, diastolic heart failure, poorly controlled diabetes, hypertension, CAD, CKD and afib who presents to the emergency department today complaining of abdominal pain, poor intake and nausea. Patient states that her pain has been worsening over the past 2 days. And the pain has become unbearable to the point where she can't sleep at night. She states that her pain is very diffuse and she feels bloated. Admits nausea, edema, vomiting, and abdominal pain/bloating. Denies fevers, chills, palpitations , shortness of breath, chest pain, dysuria, hematuria, frequency and urgency. - Current Medication List Current Medications: Active Medications Alprazolam (Xanax -) 0.25 mg PO Q8H PRN PRN Reason: ANXIETY Last Admin: 11/26/16 21:28 Dose: 0.25 mg Atorvastatin Calcium (Lipitor -) 20 mg PO HS [facility] Last Admin: 11/26/16 21:28 Dose: 20 mg Diphenhydramine HCl (Benadryl -) 25 mg PO Q8H PRN PRN Reason: ITCHINESS Last Admin: 11/26/16 21:28 Dose: 25 mg Fluticasone Propionate (Flonase -) 1 spray NS DAILY PRN PRN Reason: NASAL CONGESTION Furosemide (Lasix -) 80 mg PO DAILY [facility] Last Admin: 11/27/16 13:22 Dose: 80 mg Insulin Aspart (Novolog Vial Sliding Scale -) 1 vial SQ TIDAC [facility] PRN Reason: Protocol Last Admin: 11/27/16 11:35 Dose: 2 units Magnesium Hydroxide (Milk Of Magnesia -) 30 ml PO PRN PRN PRN Reason: CONSTIPATION Last Admin: 11/26/16 11:40 Dose: 30 ml Metoprolol Tartrate (Lopressor -) 50 mg PO BID [facility] Last Admin: 11/27/16 10:18 Dose: 50 mg Ondansetron HCl (Zofran Injection) 2 mg IVPB Q6H PRN PRN Reason: NAUSEA Last Admin: 11/24/16 04:35 Dose: 2 mg Potassium Chloride (K-Dur -) 20 meq PO DAILY [facility] Last Admin: 11/27/16 10:18 Dose: 20 meq Rivaroxaban (Xarelto -) 15 mg PO DAILY [facility] Last Admin: 11/27/16 10:18 Dose: 15 mg - Objective Vital Signs: Vital Signs Temperature 98 F 11/27/16 13:47 Pulse Rate 87 11/27/16 13:47 Respiratory Rate 20 11/27/16 13:47 Blood Pressure 92/64 11/27/16 13:47 O2 Sat by Pulse Oximetry (%) 96 11/26/16 21:00 Eyes: Yes: WNL, Conjunctiva Clear, EOM Intact HENT: Yes: WNL, Atraumatic, Normocephalic Neck: Yes: WNL, Supple, Trachea Midline Cardiovascular: Yes: WNL, Regular Rate and Rhythm Respiratory: Yes: WNL, Regular, CTA Bilaterally Gastrointestinal: Yes: WNL, Normal Bowel Sounds Genitourinary: Yes: WNL Musculoskeletal: Yes: WNL Extremities: Yes: WNL Edema: No Integumentary: Yes: WNL Neurological: Yes: WNL, Alert, Oriented ...Motor Strength: WNL Psychiatric: Yes: WNL Labs: CBC, BMP 11/27/16 06:00 11/27/16 06:00 INR, PTT INR 1.77 (0.82-1.09) H 11/23/16 11:55 Problem List - Problems (1) Abdominal pain Code(s): R10.9 - UNSPECIFIED ABDOMINAL PAIN Qualifiers: Abdominal location: right upper quadrant Qualified Code(s): R10.11 - Right upper quadrant pain (2) Atrial fibrillation Code(s): I48.91 - UNSPECIFIED ATRIAL FIBRILLATION Qualifiers: Atrial fibrillation type: unspecified Qualified Code(s): I48.91 - Unspecified atrial fibrillation (3) Diastolic CHF Code(s): I50.30 - UNSPECIFIED DIASTOLIC (CONGESTIVE) HEART FAILURE Qualifiers : Congestive heart failure chronicity: chronic Qualified Code(s): I50.32 - Chronic diastolic (congestive) heart failure (4) Edema extremities Code(s): R60.0 - LOCALIZED EDEMA (5) Elevated bilirubin Code(s): R17 - UNSPECIFIED JAUNDICE (6) Obesity Code(s): E66.9 - OBESITY, UNSPECIFIED Qualifiers: Obesity type: due to excess calories (7) Ventral hernia Code(s): K43.9 - VENTRAL HERNIA WITHOUT OBSTRUCTION OR GANGRENE Qualifiers: Obstruction and gangrene presence: without obstruction or gangrene Qualified Code(s): K43.9 - Ventral hernia without obstruction or gangrene (8) Acute on chronic renal failure Code(s): N17.9 - ACUTE KIDNEY FAILURE, UNSPECIFIED N18.9 - CHRONIC KIDNEY DISEASE, UNSPECIFIED Qualifiers: Chronic kidney disease stage: stage 3 (moderate) (9) Dehydration Code(s): E86.0 - DEHYDRATION (10) HTN (hypertension) Code(s): I10 - ESSENTIAL (PRIMARY) HYPERTENSION (11) Hypokalemia Code(s): E87.6 - HYPOKALEMIA (12) Hypothyroidism Code(s): E03.9 - HYPOTHYROIDISM, UNSPECIFIED (13) Muscle weakness Code(s): M62.81 - MUSCLE WEAKNESS (GENERALIZED) (14) New onset atrial fibrillation Code(s): I48.91 - UNSPECIFIED ATRIAL FIBRILLATION (15) T2DM (type 2 diabetes mellitus) Code(s): E11.9 - TYPE 2 DIABETES MELLITUS WITHOUT COMPLICATIONS Qualifiers: Assessment/Plan af decompensated chf dm abd pain htn CRI plan change lasix to po l ext edema improving . will d/c Norvasc due to hypotension. gi w/u cont rate control and ac
[2016-11-27] MEDS: diphenhydrAMINE HCL 25 MG CAPSULE (FP) PO PRN (20:01)
[2016-11-27] MEDS: ALPRAZolam 0.25 MG TABLET PO PRN (20:02)
[2016-11-27] MEDS: ATORVASTATIN CA 20 MG TABLET (FP) PO SCH (21:13)
[2016-11-28] MEDS: INSULIN SLIDING SCALE (NOVOLOG) 1 VIAL SQ SCH ×3 (06:08→17:11)
[2016-11-28 08:35] LABS: ANION GAP 9 (8-16); CO2 27 mmol/L (21-32); CREATININE 2.1 mg/dL (0.55-1.02); GLUCOSE,RANDOM 158 mg/dL (74-106); MAGNESIUM 2.3 mg/dL (1.8-2.4); PHOSPHOROUS 2.6 mg/dL (2.5-4.9)
[2016-11-28 09:05] LABS: BASOPHIL 1.4 % (0-2.0); EOSINOPHIL 2.2 % (0-4.5); MCH 22.3 pg (25.7-33.7); MCHC 30.2 g/dl (32.0-36.0); MEAN CELL VOLUME 73.8 fl (80-96); MEAN PLT VOLUME 8.2 fl (7.5-11.1); PLATELET COUNT 350 K/MM3 (134-434); WHITE BLOOD COUNT 5.8 K/mm3 (4.0-10.0)
[2016-11-28] MEDS ORDERED: PT OWN MED DRAWER 7, Y5N ONE (09:17)
[2016-11-28] MEDS: METOPROLOL TARTRATE 50 MG TABLET (FP) PO SCH ×2 (09:32→21:32)
[2016-11-28] MEDS: POTASSIUM CHLORIDE TABS 10 MEQ TABLET.ER (FP) PO SCH (09:32)
[2016-11-28] MEDS: FUROSEMIDE 40 MG TABLET (FP) PO SCH (09:33)
[2016-11-28] MEDS: RIVAROXABAN 15 MG TABLET PO SCH (09:34)
--- NOTE | 2016-11-28 09:47 | PN ---
Progress Note, Physician History of Present Illness: Patient is a 71-year-old female with past medical history of cholecystitis, diastolic heart failure, poorly controlled diabetes, hypertension, CAD, CKD and afib who presents to the emergency department today complaining of abdominal pain, poor intake and nausea. Patient states that her pain has been worsening over the past 2 days. And the pain has become unbearable to the point where she can't sleep at night. She states that her pain is very diffuse and she feels bloated. Admits nausea, edema, vomiting, and abdominal pain/bloating. Denies fevers, chills, palpitations , shortness of breath, chest pain, dysuria, hematuria, frequency and urgency. - Current Medication List Current Medications: Active Medications Alprazolam (Xanax -) 0.25 mg PO Q8H PRN PRN Reason: ANXIETY Last Admin: 11/27/16 20:02 Dose: 0.25 mg Atorvastatin Calcium (Lipitor -) 20 mg PO HS [facility] Last Admin: 11/27/16 21:13 Dose: 20 mg Diphenhydramine HCl (Benadryl -) 25 mg PO Q8H PRN PRN Reason: ITCHINESS Last Admin: 11/27/16 20:01 Dose: 25 mg Fluticasone Propionate (Flonase -) 1 spray NS DAILY PRN PRN Reason: NASAL CONGESTION Furosemide (Lasix -) 80 mg PO DAILY [facility] Last Admin: 11/28/16 09:33 Dose: 80 mg Insulin Aspart (Novolog Vial Sliding Scale -) 1 vial SQ TIDAC [facility] PRN Reason: Protocol Last Admin: 11/28/16 06:08 Dose: Not Given Magnesium Hydroxide (Milk Of Magnesia -) 30 ml PO PRN PRN PRN Reason: CONSTIPATION Last Admin: 11/26/16 11:40 Dose: 30 ml Metoprolol Tartrate (Lopressor -) 50 mg PO BID [facility] Last Admin: 11/28/16 09:32 Dose: 50 mg Ondansetron HCl (Zofran Injection) 2 mg IVPB Q6H PRN PRN Reason: NAUSEA Last Admin: 11/24/16 04:35 Dose: 2 mg Potassium Chloride (K-Dur -) 20 meq PO DAILY [facility] Last Admin: 11/28/16 09:32 Dose: 20 meq Rivaroxaban (Xarelto -) 15 mg PO DAILY [facility] Last Admin: 11/28/16 09:34 Dose: 15 mg - Objective Vital Signs: Vital Signs Temperature 98.4 F 11/28/16 08:49 Pulse Rate 123 H 11/28/16 08:49 Respiratory Rate 26 H 11/28/16 08:49 Blood Pressure 96/54 11/28/16 08:49 O2 Sat by Pulse Oximetry (%) 98 11/27/16 21:00 Eyes: Yes: WNL, Conjunctiva Clear, EOM Intact HENT: Yes: WNL, Atraumatic, Normocephalic Neck: Yes: WNL, Supple, Trachea Midline Cardiovascular: Yes: WNL, Regular Rate and Rhythm Respiratory: Yes: WNL, Regular, CTA Bilaterally Gastrointestinal: Yes: WNL, Normal Bowel Sounds Genitourinary: Yes: WNL Musculoskeletal: Yes: WNL Extremities: Yes: WNL Edema: Yes Integumentary: Yes: WNL Neurological: Yes: WNL, Alert, Oriented ...Motor Strength: WNL Psychiatric: Yes: WNL Labs: CBC, BMP 11/28/16 07:00 11/28/16 07:00 INR, PTT INR 1.77 (0.82-1.09) H 11/23/16 11:55 Problem List - Problems (1) Abdominal pain Code(s): R10.9 - UNSPECIFIED ABDOMINAL PAIN Qualifiers: Abdominal location: right upper quadrant Qualified Code(s): R10.11 - Right upper quadrant pain (2) Atrial fibrillation Code(s): I48.91 - UNSPECIFIED ATRIAL FIBRILLATION Qualifiers: Atrial fibrillation type: unspecified Qualified Code(s): I48.91 - Unspecified atrial fibrillation (3) Diastolic CHF Code(s): I50.30 - UNSPECIFIED DIASTOLIC (CONGESTIVE) HEART FAILURE Qualifiers : Congestive heart failure chronicity: chronic Qualified Code(s): I50.32 - Chronic diastolic (congestive) heart failure (4) Edema extremities Code(s): R60.0 - LOCALIZED EDEMA (5) Elevated bilirubin Code(s): R17 - UNSPECIFIED JAUNDICE (6) Obesity Code(s): E66.9 - OBESITY, UNSPECIFIED Qualifiers: Obesity type: due to excess calories (7) Ventral hernia Code(s): K43.9 - VENTRAL HERNIA WITHOUT OBSTRUCTION OR GANGRENE Qualifiers: Obstruction and gangrene presence: without obstruction or gangrene Qualified Code(s): K43.9 - Ventral hernia without obstruction or gangrene (8) Acute on chronic renal failure Code(s): N17.9 - ACUTE KIDNEY FAILURE, UNSPECIFIED N18.9 - CHRONIC KIDNEY DISEASE, UNSPECIFIED Qualifiers: Chronic kidney disease stage: stage 3 (moderate) (9) Dehydration Code(s): E86.0 - DEHYDRATION (10) HTN (hypertension) Code(s): I10 - ESSENTIAL (PRIMARY) HYPERTENSION (11) Hypokalemia Code(s): E87.6 - HYPOKALEMIA (12) Hypothyroidism Code(s): E03.9 - HYPOTHYROIDISM, UNSPECIFIED (13) Muscle weakness Code(s): M62.81 - MUSCLE WEAKNESS (GENERALIZED) (14) New onset atrial fibrillation Code(s): I48.91 - UNSPECIFIED ATRIAL FIBRILLATION (15) T2DM (type 2 diabetes mellitus) Code(s): E11.9 - TYPE 2 DIABETES MELLITUS WITHOUT COMPLICATIONS Qualifiers: Assessment/Plan af decompensated chf dm abd pain htn CRI plan change lasix to po l ext edema improving . will d/c Norvasc due to hypotension. gi w/u cont rate control and ac
[2016-11-28] MEDS ORDERED: INSULIN (NOVOLOG) ASPART 100 UNITS/ML 10ML VIAL ONE ×2 (11:20→17:05)
--- NOTE | 2016-11-28 11:45 | PN ---
Progress Note (short form) - Note Progress Note: Renal follow up for PERI/CKD Pt seen and examined at the bedside awake and alert, no acute complaints reports feeling better denies any CP, Abd pain, N/V/D, fever SOB is improved on NC O2 Vital Signs Temperature 98.4 F 11/28/16 08:49 Pulse Rate 123 H 11/28/16 08:49 Respiratory Rate 26 H 11/28/16 08:49 Blood Pressure 96/54 11/28/16 08:49 O2 Sat by Pulse Oximetry (%) 98 11/27/16 21:00 Intake & Output 11/25/16 11/26/16 11/27/16 11/28/16 23:59 23:59 23:59 23:59 Intake Total 925 775 500 240 Balance 925 775 500 240 Weight 232 lb 230 lb 11.2 oz 231 lb 9 oz 230 lb Gen: NAD, awake and alert CVS: RRR, No M/R Lungs: Dec BS at the lung bases Ext: Trace to 1+ edema CBC, BMP 11/28/16 07:00 11/28/16 07:00 Current Medications Alprazolam (Xanax -) 0.25 mg PO Q8H PRN PRN Reason: ANXIETY Last Admin: 11/27/16 20:02 Dose: 0.25 mg Atorvastatin Calcium (Lipitor -) 20 mg PO HS [facility] Last Admin: 11/27/16 21:13 Dose: 20 mg Diphenhydramine HCl (Benadryl -) 25 mg PO Q8H PRN PRN Reason: ITCHINESS Last Admin: 11/27/16 20:01 Dose: 25 mg Fluticasone Propionate (Flonase -) 1 spray NS DAILY PRN PRN Reason: NASAL CONGESTION Furosemide (Lasix -) 80 mg PO DAILY [facility] Last Admin: 11/28/16 09:33 Dose: 80 mg Insulin Aspart (Novolog Vial Sliding Scale -) 1 vial SQ TIDAC [facility] PRN Reason: Protocol Last Admin: 11/28/16 11:21 Dose: 4 units Magnesium Hydroxide (Milk Of Magnesia -) 30 ml PO PRN PRN PRN Reason: CONSTIPATION Last Admin: 11/26/16 11:40 Dose: 30 ml Metoprolol Tartrate (Lopressor -) 50 mg PO BID [facility] Last Admin: 11/28/16 09:32 Dose: 50 mg Ondansetron HCl (Zofran Injection) 2 mg IVPB Q6H PRN PRN Reason: NAUSEA Last Admin: 11/24/16 04:35 Dose: 2 mg Potassium Chloride (K-Dur -) 20 meq PO DAILY [facility] Last Admin: 11/28/16 09:32 Dose: 20 meq Rivaroxaban (Xarelto -) 15 mg PO DAILY [facility] Last Admin: 11/28/16 09:34 Dose: 15 mg 71 year old woman with PMhx of CKD Stage 4 (baseline Cr 1.6-1.9 based on prior records), CAD, CHF, Afib who presented with complaints of Nausea and vomiting and found to have CHF exacerbation with BUN/Cr of 33/2.3. #PERI on CKD in setting of acute CHF Exacerbation Etiology of PERI is likely hemodynamic in setting of CHF/diuretics Renal function with modest improvement Lasix switched to PO off JOSH/ARB at this time if renal function remains stable can restart JOSH holding amlodipine for low BP Trend BUN/Cr Dose all meds for Cr Cl less then 30 Thank you Javed Douglass DO Problem List - Problems (1) Atrial fibrillation Code(s): I48.91 - UNSPECIFIED ATRIAL FIBRILLATION Qualifiers: Atrial fibrillation type: unspecified Qualified Code(s): I48.91 - Unspecified atrial fibrillation (2) Diastolic CHF Code(s): I50.30 - UNSPECIFIED DIASTOLIC (CONGESTIVE) HEART FAILURE Qualifiers : Congestive heart failure chronicity: chronic Qualified Code(s): I50.32 - Chronic diastolic (congestive) heart failure (3) Edema extremities Code(s): R60.0 - LOCALIZED EDEMA (4) Obesity Code(s): E66.9 - OBESITY, UNSPECIFIED Qualifiers: Obesity type: due to excess calories (5) Acute on chronic renal failure Code(s): N17.9 - ACUTE KIDNEY FAILURE, UNSPECIFIED N18.9 - CHRONIC KIDNEY DISEASE, UNSPECIFIED Qualifiers: Chronic kidney disease stage: stage 3 (moderate) (6) HTN (hypertension) Code(s): I10 - ESSENTIAL (PRIMARY) HYPERTENSION
--- NOTE | 2016-11-28 16:56 | PN ---
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 Problem List - Problems (1) Abdominal pain Code(s): R10.9 - UNSPECIFIED ABDOMINAL PAIN Qualifiers: Abdominal location: right upper quadrant Qualified Code(s): R10.11 - Right upper quadrant pain (2) Atrial fibrillation Code(s): I48.91 - UNSPECIFIED ATRIAL FIBRILLATION Qualifiers: Atrial fibrillation type: unspecified Qualified Code(s): I48.91 - Unspecified atrial fibrillation (3) Diastolic CHF Code(s): I50.30 - UNSPECIFIED DIASTOLIC (CONGESTIVE) HEART FAILURE Qualifiers : Congestive heart failure chronicity: chronic Qualified Code(s): I50.32 - Chronic diastolic (congestive) heart failure (4) Obesity Code(s): E66.9 - OBESITY, UNSPECIFIED Qualifiers: Obesity type: due to excess calories (5) Acute on chronic renal failure Code(s): N17.9 - ACUTE KIDNEY FAILURE, UNSPECIFIED N18.9 - CHRONIC KIDNEY DISEASE, UNSPECIFIED Qualifiers: Chronic kidney disease stage: stage 3 (moderate) (6) Hypokalemia Code(s): E87.6 - HYPOKALEMIA (7) Hypothyroidism Code(s): E03.9 - HYPOTHYROIDISM, UNSPECIFIED (8) T2DM (type 2 diabetes mellitus) Code(s): E11.9 - TYPE 2 DIABETES MELLITUS WITHOUT COMPLICATIONS Qualifiers: (9) Anasarca Code(s): R60.1 - GENERALIZED EDEMA (10) Pulmonary HTN Code(s): I27.2 - OTHER SECONDARY PULMONARY HYPERTENSION (11) Acute hypoxemic respiratory failure Code(s): J96.01 - ACUTE RESPIRATORY FAILURE WITH HYPOXIA (12) Edema extremities Code(s): R60.0 - LOCALIZED EDEMA (13) Pleural effusion due to CHF (congestive heart failure) Code(s): I50.9 - HEART FAILURE, UNSPECIFIED
[2016-11-28 17:30] LABS: ALLENS TEST POSITIVE; ART PUNCT SITE RIGHT RADIAL; ARTERIAL BLD GAS O2 SATURATION 96.8 % (90-98.9); ARTERIAL BLOOD GAS BASE EXCESS -1.4 meq/l (-2-2); ARTERIAL BLOOD GAS HCO3 21.3 meq/L (22-26); ARTERIAL BLOOD GAS PO2 81.5 mmHg (80-100); ARTERIAL BLOOD GAS pH 7.46 (7.35-7.45); LPM/O2% 2L; PT. ON O2? YES; TYPE OF O2 NASAL O2
[2016-11-28] MEDS: ATORVASTATIN CA 20 MG TABLET (FP) PO SCH (21:32)
[2016-11-28] MEDS: diphenhydrAMINE HCL 25 MG CAPSULE (FP) PO PRN (21:40)
[2016-11-28] MEDS: ALPRAZolam 0.25 MG TABLET PO PRN (23:07)
[2016-11-29 00:11] LABS: ALBUMIN 3.2 g/dL (2.9-4.4); GLOBULIN, TOTAL 3.2 g/dL (2.2-3.9); TOTAL PROTEIN 6.4 g/dL (6.0-8.5)
[2016-11-29] MEDS: INSULIN SLIDING SCALE (NOVOLOG) 1 VIAL SQ SCH ×3 (06:14→16:18)
--- NOTE | 2016-11-29 06:43 | CONS ---
DATE OF CONSULTATION: 11/28/2016 PULMONARY CONSULTATION REFERRING PHYSICIAN: Stas Winter MD HISTORY OF PRESENT ILLNESS: The patient is a 71-year-old white female with past medical history of diastolic heart failure, poorly controlled diabetes, hypertension, chronic kidney disease, ASHD, history of cholecystitis, history of pulmonary hypertension, and last echo 2013 with pulmonary artery pressure of 50 to 60 with a history of tobacco use approximately 1 pack per day for approximately 25 years, quit approximately 20 years ago, admitted to [facility] with complaint of abdominal pain, decreased p.o. intake, increased lower extremity edema, and abdominal swelling. The patient denies any fever or chills. The patient was admitted, but on admission she was felt to have possible cholecystitis. She underwent a CT of the abdomen, showed bilateral pleural effusion and no acute process. She was evaluated by for cardiology who felt she is not a surgical candidate. Of note, the patient states for the past 2-3 months she started noticing progressive lower extremity edema and increasing abdominal edema. On admission, she was evaluated by Dr. Terrell for renal consultation as well as Dr. Anaya for cardiology consultation. Of note, the patient complains of shortness of breath with minimal exertion. Earlier today after walking a few steps, she was noted to be hypoxic with O2 saturation of 84% on room air. A followup chest x-ray reveals mild cardiomegaly but no definitive infiltrates and/or effusions. PAST MEDICAL HISTORY: Again includes diastolic heart failure, atrial fibrillation, hypertension, ASHD, obesity, atrial fibrillation, diabetes and chronic kidney disease. REVIEW OF SYSTEMS: Positive orthopnea, positive dyspnea, positive tiredness, no chest pain, no palpitation, no nausea, no vomiting, no abdominal pain. Positive increased abdominal girth, positive lower extremity edema. CURRENT MEDICATIONS: Include Xanax, Xarelto, Zofran, Flonase, Benadryl, Lipitor, Novolog, Lasix, and K-Dur. PHYSICAL EXAMINATION: General: The patient is an elderly white female well-developed, awake, alert, dyspneic on minimal exertion, but in no acute distress. Vital signs: Her heart rate is 112, O2 saturation is 91% on room air, respiratory rate 24, blood pressure 100/60. HEENT: Head is normocephalic, atraumatic. Neck: Supple. Heart: Irregular. Normal S1, S2. Chest: Bilateral crackles. Abdomen: Soft. Bowel sounds positive. Extremities: Bilateral lower extremity edema. LABORATORY: WBC 5.8, hemoglobin 10.9, hematocrit 35.9 with platelet count of 350,000. INR 1.77, BUN 34, creatinine 2.1. UA negative albumin, negative protein. Chest x-ray reveals no cardiomegaly, no definitive infiltrates, effusions. IMPRESSION: 1. Acute hypoxemic respiratory failure, likely congestive heart failure. 2. Severe pulmonary hypertension. 3. Diastolic heart failure. 4. Anasarca. 5. Hypertension. 6. Diabetes. 7. Chronic kidney disease. 8. Likely obstructive sleep apnea. PLAN: Continue diuretics, supplemental O2. Patient may require home O2. Check a nocturnal O2 saturation monitoring. Sleep screen. Daily weights. PFTs outpatient. Also CT scan of chest. SIENNA STEWARD M.D. [id number]
[2016-11-29 09:42] LABS: ANION GAP 9 (8-16); CALCIUM 9.2 mg/dL (8.5-10.1); CO2 26 mmol/L (21-32); CREATININE 1.9 mg/dL (0.55-1.02); GLUCOSE,RANDOM 132 mg/dL (74-106); MAGNESIUM 2.2 mg/dL (1.8-2.4); PHOSPHOROUS 2.5 mg/dL (2.5-4.9)
--- NOTE | 2016-11-29 09:48 | PN ---
Progress Note, Physician History of Present Illness: Patient is a 71-year-old female with past medical history of cholecystitis, diastolic heart failure, poorly controlled diabetes, hypertension, CAD, CKD and afib who presents to the emergency department today complaining of abdominal pain, poor intake and nausea. Patient states that her pain has been worsening over the past 2 days. And the pain has become unbearable to the point where she can't sleep at night. She states that her pain is very diffuse and she feels bloated. Admits nausea, edema, vomiting, and abdominal pain/bloating. Denies fevers, chills, palpitations , shortness of breath, chest pain, dysuria, hematuria, frequency and urgency. - Current Medication List Current Medications: Active Medications Alprazolam (Xanax -) 0.25 mg PO Q8H PRN Last Admin: 11/28/16 23:07 Dose: 0.25 mg Atorvastatin Calcium (Lipitor -) 20 mg PO HS [facility] Last Admin: 11/28/16 21:32 Dose: 20 mg Diphenhydramine HCl (Benadryl -) 25 mg PO Q8H PRN PRN Reason: ITCHINESS Last Admin: 11/28/16 21:40 Dose: 25 mg Fluticasone Propionate (Flonase -) 1 spray NS DAILY PRN PRN Reason: NASAL CONGESTION Furosemide (Lasix -) 80 mg PO DAILY [facility] Last Admin: 11/28/16 09:33 Dose: 80 mg Insulin Aspart (Novolog Vial Sliding Scale -) 1 vial SQ TIDAC [facility] PRN Reason: Protocol Last Admin: 11/29/16 06:14 Dose: 2 units Magnesium Hydroxide (Milk Of Magnesia -) 30 ml PO PRN PRN PRN Reason: CONSTIPATION Last Admin: 11/26/16 11:40 Dose: 30 ml Metoprolol Tartrate (Lopressor -) 50 mg PO BID [facility] Last Admin: 11/28/16 21:32 Dose: 50 mg Ondansetron HCl (Zofran Injection) 2 mg IVPB Q6H PRN PRN Reason: NAUSEA Last Admin: 11/24/16 04:35 Dose: 2 mg Potassium Chloride (K-Dur -) 20 meq PO DAILY [facility] Last Admin: 11/28/16 09:32 Dose: 20 meq Rivaroxaban (Xarelto -) 15 mg PO DAILY [facility] Last Admin: 11/28/16 09:34 Dose: 15 mg - Objective Vital Signs: Vital Signs Temperature 98.0 F 11/28/16 22:00 Pulse Rate 97 H 11/28/16 22:44 Respiratory Rate 19 11/28/16 22:00 Blood Pressure 131/79 11/28/16 22:00 O2 Sat by Pulse Oximetry (%) 94 L 11/28/16 22:44 Eyes: Yes: WNL, Conjunctiva Clear, EOM Intact HENT: Yes: WNL, Atraumatic, Normocephalic Neck: Yes: WNL, Supple, Trachea Midline Cardiovascular: Yes: WNL, Regular Rate and Rhythm Respiratory: Yes: WNL, Regular, CTA Bilaterally Gastrointestinal: Yes: WNL, Normal Bowel Sounds Genitourinary: Yes: WNL Musculoskeletal: Yes: WNL Extremities: Yes: WNL Edema: No Integumentary: Yes: WNL Neurological: Yes: WNL, Alert, Oriented ...Motor Strength: WNL Psychiatric: Yes: WNL Labs: CBC, BMP 11/28/16 07:00 11/29/16 07:45 INR, PTT INR 1.77 (0.82-1.09) H 11/23/16 11:55 Problem List - Problems (1) Abdominal pain Code(s): R10.9 - UNSPECIFIED ABDOMINAL PAIN Qualifiers: Abdominal location: right upper quadrant Qualified Code(s): R10.11 - Right upper quadrant pain (2) Atrial fibrillation Code(s): I48.91 - UNSPECIFIED ATRIAL FIBRILLATION Qualifiers: Atrial fibrillation type: unspecified Qualified Code(s): I48.91 - Unspecified atrial fibrillation (3) Diastolic CHF Code(s): I50.30 - UNSPECIFIED DIASTOLIC (CONGESTIVE) HEART FAILURE Qualifiers : Congestive heart failure chronicity: chronic Qualified Code(s): I50.32 - Chronic diastolic (congestive) heart failure (4) Edema extremities Code(s): R60.0 - LOCALIZED EDEMA (5) Elevated bilirubin Code(s): R17 - UNSPECIFIED JAUNDICE (6) Obesity Code(s): E66.9 - OBESITY, UNSPECIFIED Qualifiers: Obesity type: due to excess calories (7) Ventral hernia Code(s): K43.9 - VENTRAL HERNIA WITHOUT OBSTRUCTION OR GANGRENE Qualifiers: Obstruction and gangrene presence: without obstruction or gangrene Qualified Code(s): K43.9 - Ventral hernia without obstruction or gangrene (8) Acute on chronic renal failure Code(s): N17.9 - ACUTE KIDNEY FAILURE, UNSPECIFIED N18.9 - CHRONIC KIDNEY DISEASE, UNSPECIFIED Qualifiers: Chronic kidney disease stage: stage 3 (moderate) (9) Dehydration Code(s): E86.0 - DEHYDRATION (10) HTN (hypertension) Code(s): I10 - ESSENTIAL (PRIMARY) HYPERTENSION (11) Hypokalemia Code(s): E87.6 - HYPOKALEMIA (12) Hypothyroidism Code(s): E03.9 - HYPOTHYROIDISM, UNSPECIFIED (13) Muscle weakness Code(s): M62.81 - MUSCLE WEAKNESS (GENERALIZED) (14) New onset atrial fibrillation Code(s): I48.91 - UNSPECIFIED ATRIAL FIBRILLATION (15) T2DM (type 2 diabetes mellitus) Code(s): E11.9 - TYPE 2 DIABETES MELLITUS WITHOUT COMPLICATIONS Qualifiers: Assessment/Plan af decompensated chf dm abd pain htn CRI plan change lasix to po l ext edema improving . will d/c Norvasc due to hypotension. gi w/u cont rate control and ac from cardiac point of view could be followed as an outpatients
[2016-11-29] MEDS ORDERED: PT OWN MED DRAWER 7, Y5N ONE (10:58)
--- NOTE | 2016-11-29 11:01 | PN ---
Progress Note, Physician History of Present Illness: PULMONARY ALERT,+SIERRA,SLEEP SCREEN + MODERATE HILARIA AHI 16.7,CHEST CT BILATERAL PLEURAL EFFUSIONS,+ ASCITES,+ SUB-CUTANEOUS EDEMA - Current Medication List Current Medications: Active Medications Alprazolam (Xanax -) 0.25 mg PO Q8H PRN Last Admin: 11/28/16 23:07 Dose: 0.25 mg Atorvastatin Calcium (Lipitor -) 20 mg PO HS [facility] Last Admin: 11/28/16 21:32 Dose: 20 mg Diphenhydramine HCl (Benadryl -) 25 mg PO Q8H PRN PRN Reason: ITCHINESS Last Admin: 11/28/16 21:40 Dose: 25 mg Fluticasone Propionate (Flonase -) 1 spray NS DAILY PRN PRN Reason: NASAL CONGESTION Furosemide (Lasix -) 80 mg PO DAILY [facility] Last Admin: 11/28/16 09:33 Dose: 80 mg Insulin Aspart (Novolog Vial Sliding Scale -) 1 vial SQ TIDAC [facility] PRN Reason: Protocol Last Admin: 11/29/16 06:14 Dose: 2 units Magnesium Hydroxide (Milk Of Magnesia -) 30 ml PO PRN PRN PRN Reason: CONSTIPATION Last Admin: 11/26/16 11:40 Dose: 30 ml Metoprolol Tartrate (Lopressor -) 50 mg PO BID [facility] Last Admin: 11/28/16 21:32 Dose: 50 mg Ondansetron HCl (Zofran Injection) 2 mg IVPB Q6H PRN PRN Reason: NAUSEA Last Admin: 11/24/16 04:35 Dose: 2 mg Potassium Chloride (K-Dur -) 20 meq PO DAILY [facility] Last Admin: 11/28/16 09:32 Dose: 20 meq Rivaroxaban (Xarelto -) 15 mg PO DAILY [facility] Last Admin: 11/28/16 09:34 Dose: 15 mg - Objective Vital Signs: Vital Signs Temperature 98.0 F 11/28/16 22:00 Pulse Rate 97 H 11/28/16 22:44 Respiratory Rate 19 11/28/16 22:00 Blood Pressure 131/79 11/28/16 22:00 O2 Sat by Pulse Oximetry (%) 94 L 11/28/16 22:44 Constitutional: Yes: Well Nourished, Calm Eyes: Yes: WNL HENT: Yes: WNL Neck: Yes: WNL Cardiovascular: Yes: Pulse Irregular, S1, S2 Respiratory: Yes: Diminished Gastrointestinal: Yes: Normal Bowel Sounds, Soft Extremities: Yes: WNL Edema: Yes Labs: CBC, BMP 11/28/16 07:00 11/29/16 07:45 INR, PTT INR 1.77 (0.82-1.09) H 11/23/16 11:55 Problem List - Problems (1) Abdominal pain Code(s): R10.9 - UNSPECIFIED ABDOMINAL PAIN Qualifiers: Abdominal location: right upper quadrant Qualified Code(s): R10.11 - Right upper quadrant pain (2) Atrial fibrillation Code(s): I48.91 - UNSPECIFIED ATRIAL FIBRILLATION Qualifiers: Atrial fibrillation type: unspecified Qualified Code(s): I48.91 - Unspecified atrial fibrillation (3) Diastolic CHF Code(s): I50.30 - UNSPECIFIED DIASTOLIC (CONGESTIVE) HEART FAILURE Qualifiers : Congestive heart failure chronicity: chronic Qualified Code(s): I50.32 - Chronic diastolic (congestive) heart failure (4) Obesity Code(s): E66.9 - OBESITY, UNSPECIFIED Qualifiers: Obesity type: due to excess calories (5) Acute on chronic renal failure Code(s): N17.9 - ACUTE KIDNEY FAILURE, UNSPECIFIED N18.9 - CHRONIC KIDNEY DISEASE, UNSPECIFIED Qualifiers: Chronic kidney disease stage: stage 3 (moderate) (6) Hypokalemia Code(s): E87.6 - HYPOKALEMIA (7) Hypothyroidism Code(s): E03.9 - HYPOTHYROIDISM, UNSPECIFIED (8) T2DM (type 2 diabetes mellitus) Code(s): E11.9 - TYPE 2 DIABETES MELLITUS WITHOUT COMPLICATIONS Qualifiers: (9) Anasarca Code(s): R60.1 - GENERALIZED EDEMA (10) Pulmonary HTN Code(s): I27.2 - OTHER SECONDARY PULMONARY HYPERTENSION (11) Acute hypoxemic respiratory failure Code(s): J96.01 - ACUTE RESPIRATORY FAILURE WITH HYPOXIA (12) Edema extremities Code(s): R60.0 - LOCALIZED EDEMA (13) Pleural effusion due to CHF (congestive heart failure) Code(s): I50.9 - HEART FAILURE, UNSPECIFIED Assessment/Plan IMP ACUTE HYPOXEMIC RESPIRATORY FAILURE IMPROVED CHF SEVERE PULMONARY HTN AFIB ANASARCA ASCITES DM HTN OSAS PLAN DIURETICS O2 XARELTO DAILY WTS ECHO PFTS OUTPATIENT SLEEP STUDIES 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 Problem List - Problems (1) Abdominal pain Code(s): R10.9 - UNSPECIFIED ABDOMINAL PAIN Qualifiers: Abdominal location: right upper quadrant Qualified Code(s): R10.11 - Right upper quadrant pain (2) Atrial fibrillation Code(s): I48.91 - UNSPECIFIED ATRIAL FIBRILLATION Qualifiers: Atrial fibrillation type: unspecified Qualified Code(s): I48.91 - Unspecified atrial fibrillation (3) Diastolic CHF Code(s): I50.30 - UNSPECIFIED DIASTOLIC (CONGESTIVE) HEART FAILURE Qualifiers : Congestive heart failure chronicity: chronic Qualified Code(s): I50.32 - Chronic diastolic (congestive) heart failure (4) Obesity Code(s): E66.9 - OBESITY, UNSPECIFIED Qualifiers: Obesity type: due to excess calories (5) Acute on chronic renal failure Code(s): N17.9 - ACUTE KIDNEY FAILURE, UNSPECIFIED N18.9 - CHRONIC KIDNEY DISEASE, UNSPECIFIED Qualifiers: Chronic kidney disease stage: stage 3 (moderate) (6) Hypokalemia Code(s): E87.6 - HYPOKALEMIA (7) Hypothyroidism Code(s): E03.9 - HYPOTHYROIDISM, UNSPECIFIED (8) T2DM (type 2 diabetes mellitus) Code(s): E11.9 - TYPE 2 DIABETES MELLITUS WITHOUT COMPLICATIONS Qualifiers: (9) Anasarca Code(s): R60.1 - GENERALIZED EDEMA (10) Pulmonary HTN Code(s): I27.2 - OTHER SECONDARY PULMONARY HYPERTENSION (11) Acute hypoxemic respiratory failure Code(s): J96.01 - ACUTE RESPIRATORY FAILURE WITH HYPOXIA (12) Edema extremities Code(s): R60.0 - LOCALIZED EDEMA (13) Pleural effusion due to CHF (congestive heart failure) Code(s): I50.9 - HEART FAILURE, UNSPECIFIED
[2016-11-29] MEDS: METOPROLOL TARTRATE 50 MG TABLET (FP) PO SCH ×2 (11:15→21:36)
[2016-11-29] MEDS: POTASSIUM CHLORIDE TABS 10 MEQ TABLET.ER (FP) PO SCH (11:15)
[2016-11-29] MEDS: RIVAROXABAN 15 MG TABLET PO SCH (11:15)
[2016-11-29] MEDS: FUROSEMIDE 40 MG TABLET (FP) PO SCH (11:15)
--- NOTE | 2016-11-29 12:28 | PN ---
Progress Note (short form) - Note Progress Note: Renal follow up for PERI/CKD Pt seen and examined at the bedside awake and alert denies any CP, abd pain, N/v/d SOB is improved Vital Signs Temperature 98.0 F 11/29/16 11:12 Pulse Rate 104 H 11/29/16 11:12 Respiratory Rate 18 11/29/16 11:12 Blood Pressure 110/57 11/29/16 11:12 O2 Sat by Pulse Oximetry (%) 95 11/29/16 10:35 Intake & Output 11/26/16 11/27/16 11/28/16 11/29/16 23:59 23:59 23:59 23:59 Intake Total 775 500 510 Balance 775 500 510 Weight 230 lb 11.2 oz 231 lb 9 oz 230 lb 230 lb 2 oz Gen: NAD, awake and alert CVS: RRR, No M/R Lungs: Dec BS at the lung bases Ext: Trace to 1+ edema CBC, BMP 11/28/16 07:00 11/29/16 07:45 Current Medications Alprazolam (Xanax -) 0.25 mg PO Q8H PRN Last Admin: 11/28/16 23:07 Dose: 0.25 mg Atorvastatin Calcium (Lipitor -) 20 mg PO HS [facility] Last Admin: 11/28/16 21:32 Dose: 20 mg Diphenhydramine HCl (Benadryl -) 25 mg PO Q8H PRN PRN Reason: ITCHINESS Last Admin: 11/28/16 21:40 Dose: 25 mg Fluticasone Propionate (Flonase -) 1 spray NS DAILY PRN PRN Reason: NASAL CONGESTION Furosemide (Lasix -) 80 mg PO DAILY [facility] Last Admin: 11/29/16 11:15 Dose: 80 mg Insulin Aspart (Novolog Vial Sliding Scale -) 1 vial SQ TIDAC [facility] PRN Reason: Protocol Last Admin: 11/29/16 11:24 Dose: 2 units Magnesium Hydroxide (Milk Of Magnesia -) 30 ml PO PRN PRN PRN Reason: CONSTIPATION Last Admin: 11/26/16 11:40 Dose: 30 ml Metoprolol Tartrate (Lopressor -) 50 mg PO BID [facility] Last Admin: 11/29/16 11:15 Dose: 50 mg Ondansetron HCl (Zofran Injection) 2 mg IVPB Q6H PRN PRN Reason: NAUSEA Last Admin: 11/24/16 04:35 Dose: 2 mg Potassium Chloride (K-Dur -) 20 meq PO DAILY [facility] Last Admin: 11/29/16 11:15 Dose: 20 meq Rivaroxaban (Xarelto -) 15 mg PO DAILY [facility] Last Admin: 11/29/16 11:15 Dose: 15 mg 71 year old woman with PMhx of CKD Stage 4 (baseline Cr 1.6-1.9 based on prior records), CAD, CHF, Afib who presented with complaints of Nausea and vomiting and found to have CHF exacerbation with BUN/Cr of 33/2.3. #PERI on CKD in setting of acute CHF Exacerbation Etiology of PERI is likely hemodynamic in setting of CHF/diuretics renal function has improved to baseline would maintain off ACEi given low BP, can be restarted after outpatient follow up no renal contraindication to discharge at this time will need to follow up as an outpatient for continued management of CKD Thank you Javed Douglass DO Problem List - Problems (1) Atrial fibrillation Code(s): I48.91 - UNSPECIFIED ATRIAL FIBRILLATION Qualifiers: Atrial fibrillation type: unspecified Qualified Code(s): I48.91 - Unspecified atrial fibrillation (2) Diastolic CHF Code(s): I50.30 - UNSPECIFIED DIASTOLIC (CONGESTIVE) HEART FAILURE Qualifiers : Congestive heart failure chronicity: chronic Qualified Code(s): I50.32 - Chronic diastolic (congestive) heart failure (3) Edema extremities Code(s): R60.0 - LOCALIZED EDEMA (4) Obesity Code(s): E66.9 - OBESITY, UNSPECIFIED Qualifiers: Obesity type: due to excess calories (5) Acute on chronic renal failure Code(s): N17.9 - ACUTE KIDNEY FAILURE, UNSPECIFIED N18.9 - CHRONIC KIDNEY DISEASE, UNSPECIFIED Qualifiers: Chronic kidney disease stage: stage 3 (moderate) (6) HTN (hypertension) Code(s): I10 - ESSENTIAL (PRIMARY) HYPERTENSION
[2016-11-29] MEDS: ALPRAZolam 0.25 MG TABLET PO PRN (16:15)
[2016-11-29] MEDS: LISINOPRIL 5 MG TABLET (FP) PO SCH (16:15)
[2016-11-29] MEDS: MAGNESIUM HYDROX 2400MG/30ML ORAL SUSPENSION 30 ML CUP PO PRN ×2 (18:04→21:36)
[2016-11-29] MEDS: ATORVASTATIN CA 20 MG TABLET (FP) PO SCH (21:36)
[2016-11-29] MEDS: diphenhydrAMINE HCL 25 MG CAPSULE (FP) PO PRN (21:36)
[2016-11-30] MEDS: INSULIN SLIDING SCALE (NOVOLOG) 1 VIAL SQ SCH ×2 (06:16→12:08)
[2016-11-30 06:51] VITALS: PULSE 100
[2016-11-30 09:41] VITALS: BP 114/71; TEMP 97.7
[2016-11-30] MEDS ORDERED: PT OWN MED DRAWER 7, Y5N ONE (09:48)
[2016-11-30] MEDS: LISINOPRIL 5 MG TABLET (FP) PO SCH (09:52)
[2016-11-30] MEDS: RIVAROXABAN 15 MG TABLET PO SCH (09:52)
[2016-11-30] MEDS: POTASSIUM CHLORIDE TABS 10 MEQ TABLET.ER (FP) PO SCH (09:52)
[2016-11-30] MEDS: FUROSEMIDE 40 MG TABLET (FP) PO SCH (09:52)
[2016-11-30] MEDS: METOPROLOL TARTRATE 50 MG TABLET (FP) PO SCH (09:52)
--- NOTE | 2016-11-30 10:33 | PN ---
Progress Note, Physician History of Present Illness: Patient is a 71-year-old female with past medical history of cholecystitis, diastolic heart failure, poorly controlled diabetes, hypertension, CAD, CKD and afib who presents to the emergency department today complaining of abdominal pain, poor intake and nausea. Patient states that her pain has been worsening over the past 2 days. And the pain has become unbearable to the point where she can't sleep at night. She states that her pain is very diffuse and she feels bloated. Admits nausea, edema, vomiting, and abdominal pain/bloating. Denies fevers, chills, palpitations , shortness of breath, chest pain, dysuria, hematuria, frequency and urgency. - Current Medication List Current Medications: Active Medications Alprazolam (Xanax -) 0.25 mg PO Q8H PRN Last Admin: 11/29/16 16:15 Dose: 0.25 mg Atorvastatin Calcium (Lipitor -) 20 mg PO HS [facility] Last Admin: 11/29/16 21:36 Dose: 20 mg Diphenhydramine HCl (Benadryl -) 25 mg PO Q8H PRN PRN Reason: ITCHINESS Last Admin: 11/29/16 21:36 Dose: 25 mg Fluticasone Propionate (Flonase -) 1 spray NS DAILY PRN PRN Reason: NASAL CONGESTION Furosemide (Lasix -) 80 mg PO DAILY [facility] Last Admin: 11/30/16 09:52 Dose: 80 mg Insulin Aspart (Novolog Vial Sliding Scale -) 1 vial SQ TIDAC [facility] PRN Reason: Protocol Last Admin: 11/30/16 06:16 Dose: Not Given Lisinopril (Prinivil) 2.5 mg PO DAILY [facility] Last Admin: 11/30/16 09:52 Dose: 2.5 mg Magnesium Hydroxide (Milk Of Magnesia -) 30 ml PO PRN PRN PRN Reason: CONSTIPATION Last Admin: 11/29/16 21:36 Dose: 30 ml Metoprolol Tartrate (Lopressor -) 50 mg PO BID [facility] Last Admin: 11/30/16 09:52 Dose: 50 mg Ondansetron HCl (Zofran Injection) 2 mg IVPB Q6H PRN PRN Reason: NAUSEA Last Admin: 11/24/16 04:35 Dose: 2 mg Potassium Chloride (K-Dur -) 20 meq PO DAILY [facility] Last Admin: 11/30/16 09:52 Dose: 20 meq Rivaroxaban (Xarelto -) 15 mg PO DAILY [facility] Last Admin: 11/30/16 09:52 Dose: 15 mg - Objective Vital Signs: Vital Signs Temperature 97.7 F 11/30/16 09:40 Pulse Rate 100 H 11/30/16 09:40 Respiratory Rate 18 11/30/16 09:40 Blood Pressure 114/71 11/30/16 09:40 O2 Sat by Pulse Oximetry (%) 98 11/30/16 09:00 Eyes: Yes: WNL, Conjunctiva Clear, EOM Intact HENT: Yes: WNL, Atraumatic, Normocephalic Neck: Yes: WNL, Supple, Trachea Midline Cardiovascular: Yes: WNL, Regular Rate and Rhythm Respiratory: Yes: WNL, Regular, CTA Bilaterally Gastrointestinal: Yes: WNL, Normal Bowel Sounds Genitourinary: Yes: WNL Musculoskeletal: Yes: WNL Extremities: Yes: WNL Edema: Yes Integumentary: Yes: WNL Neurological: Yes: WNL, Alert, Oriented ...Motor Strength: WNL Psychiatric: Yes: WNL Labs: CBC, BMP 11/28/16 07:00 11/29/16 07:45 INR, PTT INR 1.77 (0.82-1.09) H 11/23/16 11:55 Problem List - Problems (1) Abdominal pain Code(s): R10.9 - UNSPECIFIED ABDOMINAL PAIN Qualifiers: Abdominal location: right upper quadrant Qualified Code(s): R10.11 - Right upper quadrant pain (2) Atrial fibrillation Code(s): I48.91 - UNSPECIFIED ATRIAL FIBRILLATION Qualifiers: Atrial fibrillation type: unspecified Qualified Code(s): I48.91 - Unspecified atrial fibrillation (3) Diastolic CHF Code(s): I50.30 - UNSPECIFIED DIASTOLIC (CONGESTIVE) HEART FAILURE Qualifiers : Congestive heart failure chronicity: chronic Qualified Code(s): I50.32 - Chronic diastolic (congestive) heart failure (4) Edema extremities Code(s): R60.0 - LOCALIZED EDEMA (5) Elevated bilirubin Code(s): R17 - UNSPECIFIED JAUNDICE (6) Obesity Code(s): E66.9 - OBESITY, UNSPECIFIED Qualifiers: Obesity type: due to excess calories (7) Ventral hernia Code(s): K43.9 - VENTRAL HERNIA WITHOUT OBSTRUCTION OR GANGRENE Qualifiers: Obstruction and gangrene presence: without obstruction or gangrene Qualified Code(s): K43.9 - Ventral hernia without obstruction or gangrene (8) Acute on chronic renal failure Code(s): N17.9 - ACUTE KIDNEY FAILURE, UNSPECIFIED N18.9 - CHRONIC KIDNEY DISEASE, UNSPECIFIED Qualifiers: Chronic kidney disease stage: stage 3 (moderate) (9) Dehydration Code(s): E86.0 - DEHYDRATION (10) HTN (hypertension) Code(s): I10 - ESSENTIAL (PRIMARY) HYPERTENSION (11) Hypokalemia Code(s): E87.6 - HYPOKALEMIA (12) Hypothyroidism Code(s): E03.9 - HYPOTHYROIDISM, UNSPECIFIED (13) Muscle weakness Code(s): M62.81 - MUSCLE WEAKNESS (GENERALIZED) (14) New onset atrial fibrillation Code(s): I48.91 - UNSPECIFIED ATRIAL FIBRILLATION (15) T2DM (type 2 diabetes mellitus) Code(s): E11.9 - TYPE 2 DIABETES MELLITUS WITHOUT COMPLICATIONS Qualifiers: Assessment/Plan af decompensated chf dm abd pain htn CRI plan change lasix to po l ext edema improving . will d/c Norvasc due to hypotension. gi w/u cont rate control and ac from cardiac point of view could be followed as an outpatients
--- NOTE | 2016-11-30 11:08 | PN ---
Progress Note (short form) - Note Progress Note: PULMONARY APPEARS STABLE DRESSED AND READY TO LEAVE OFFERS NO COMPLAINTS IMPROVED CLINICAL EXAM LABS/CT/ECHO/NOTES/MEDS REVIEWED IMP ACUTE HYPOXEMIC RESPIRATORY FAILURE IMPROVED CHF SEVERE PULMONARY HTN AFIB ANASARCA ASCITES DM HTN OSAS PLAN DIURETICS O2 XARELTO DAILY WTS ECHO PFTS OUTPATIENT SLEEP STUDIES OUTPATIENT AGREE WITH CONTINUING RX AN OUTPATIENT Jesus OLMOS MD
--- NOTE | 2016-11-30 13:46 | PN ---
Progress Note (short form) - Note Progress Note: Renal follow up for PERI/CKD Pt seen and examined at the bedside no acute complaints no sob, chest pain, abd pain, N/V/D wants to go home today Vital Signs Temperature 97.7 F 11/30/16 09:40 Pulse Rate 100 H 11/30/16 09:40 Respiratory Rate 18 11/30/16 09:40 Blood Pressure 114/71 11/30/16 09:40 O2 Sat by Pulse Oximetry (%) 98 11/30/16 09:00 Intake & Output 11/27/16 11/28/16 11/29/16 11/30/16 23:59 23:59 23:59 23:59 Intake Total 500 510 700 Balance 500 510 700 Weight 231 lb 9 oz 230 lb 230 lb 2 oz 230 lb 3 oz Gen: NAD, awake and alert CVS: RRR, No M/R Lungs: Dec BS at the lung bases Ext: Trace to 1+ edema CBC, BMP 11/28/16 07:00 11/29/16 07:45 71 year old woman with PMhx of CKD Stage 4 (baseline Cr 1.6-1.9 based on prior records), CAD, CHF, Afib who presented with complaints of Nausea and vomiting and found to have CHF exacerbation with BUN/Cr of 33/2.3. #PERI on CKD in setting of acute CHF Exacerbation Etiology of PERI is likely hemodynamic in setting of CHF/diuretics Renal function improved to baseline as of yesterdays labs restarted on low dose lisinopril by cardiology repeat BMP in 3-4 days at PMD as outpatient ok for discharge with continued outpatient follow up and monitoring of renal function in the office. Thank you Javed Douglass DO Problem List - Problems (1) Atrial fibrillation Code(s): I48.91 - UNSPECIFIED ATRIAL FIBRILLATION Qualifiers: Atrial fibrillation type: unspecified Qualified Code(s): I48.91 - Unspecified atrial fibrillation (2) Diastolic CHF Code(s): I50.30 - UNSPECIFIED DIASTOLIC (CONGESTIVE) HEART FAILURE Qualifiers : Congestive heart failure chronicity: chronic Qualified Code(s): I50.32 - Chronic diastolic (congestive) heart failure (3) Edema extremities Code(s): R60.0 - LOCALIZED EDEMA (4) Obesity Code(s): E66.9 - OBESITY, UNSPECIFIED Qualifiers: Obesity type: due to excess calories (5) Acute on chronic renal failure Code(s): N17.9 - ACUTE KIDNEY FAILURE, UNSPECIFIED N18.9 - CHRONIC KIDNEY DISEASE, UNSPECIFIED Qualifiers: Chronic kidney disease stage: stage 3 (moderate) (6) HTN (hypertension) Code(s): I10 - ESSENTIAL (PRIMARY) HYPERTENSION
--- NOTE | 2016-11-30 21:46 | DS ---
Physical Examination Vital Signs: Vital Signs Temperature 97.7 F 11/30/16 09:40 Pulse Rate 100 H 11/30/16 09:40 Respiratory Rate 18 11/30/16 09:40 Blood Pressure 114/71 11/30/16 09:40 O2 Sat by Pulse Oximetry (%) 98 11/30/16 09:00 Elderly F looks Comfortable HEENT: Mm moist mils anemia, NECK: + JVD No Bruit CHEST: B/L decrease AE and minimal crepts at bases CVS: S1S2 Irr ABD: Obese ,ventral hernia RT UQ , mild tendernes, no rebound or guarding. Bs + EXT: + Edema feet BUNDLE BREAKER: AOx3 non focal Findings/Remarks: 71 yrs old f with H/O HTn, T2DM, CKD satge 3, Chronic afib on AC, non complaint , sever Pulmonary HTN, present with Rt UQ pain for 1 day denies any fever chills, c/o nausea, no H/O diarrhea or constipation, patient also c/o worsening LE swelling, abdominal fullness and ecrese ET and orthopnea in the Ed Ct abd shows s/p Cholycystecyomy, Dilated CBD considering presentation admitted for further management and evaluation to R/O acute intrabdominal pathology, evaluted bt=y surgery consult, most likely cause for abd pain is ventral hernia , patient is evaluated by Nephtrology, Pulmonary and cardiology consult, over night desaturation test revelaed desaturation at 92% not an candidate for home O2, Pulmonary consult evaluated for Pulmonary HTN , rpt ECHo shows sever Pulmonary HTN with TR, planned out patient sleep study, patient feels improved less SOB able to ambulate no desaturation, cleared by cardiology, Pulmonary and Renal consult. Labs: CBC, BMP 11/28/16 07:00 11/29/16 07:45 Discharge Summary Reason For Visit: ACQUIRED DILATION OF COMMON BILE DUCT Current Active Problems Abdominal pain (Acute) Acute hypoxemic respiratory failure (Acute) Anasarca (Acute) Atrial fibrillation (Acute) Diastolic CHF (Acute) Edema extremities (Acute) Elevated bilirubin (Acute) Obesity (Acute) Pleural effusion due to CHF (congestive heart failure) (Acute) Pulmonary HTN (Acute) Ventral hernia (Acute) Condition: Stable - Instructions Referrals: Bnonie Montiel MD [Primary Care Provider] - Rodriguez Neville MD [Staff Physician] - 1 Week Javed Douglass MD [Staff Physician] - Disposition: HOME - Home Medications Comprehensive Discharge Medication List: Ambulatory Orders Atorvastatin Ca [Lipitor] 20 mg PO HS #0 11/25/14 Insulin Lispro Protamin/Lispro [Humalog Mix 75-25 Vial] 24 unit SQ DAILY Potassium Chloride 20 meq PO DAILY 05/20/16 Atorvastatin Ca [Lipitor] 20 mg PO HS tablet 10/10/16 Fluticasone Prop 0.05% Nasal [Flonase -] 1 spray NS PRN PRN #0 spray 10/10/16 Diphenhydramine HCl [Benadryl Capsule -] 25 mg PO Q8H PRN #30 tab 11/28/16 Furosemide [Lasix -] 80 mg PO DAILY #30 tablet 11/28/16 Metoprolol Tartrate [Lopressor -] 50 mg PO BID #60 tablet 11/28/16
--- NOTE | 2016-11-30 22:14 | PN ---
Progress Note, Physician Chief Complaint: feels better less LE Swelling History of Present Illness: 71 yrs old F with dHF, Chronic Afib, T2DM , diabetic Nephropathy CKD srage 3, chronic anemia, HTN present with abd pain most likely due to ventral hernia , also CHF exacerbation with volume overload. - Objective Vital Signs: Vital Signs Temperature 97.7 F 11/29/16 09:40 Pulse Rate 100 H 11/29/16 09:40 Respiratory Rate 18 11/29/16 09:40 Blood Pressure 114/71 11/29/16 09:40 O2 Sat by Pulse Oximetry (%) 98 11/29/16 09:00 Elderly F looks Comfortable HEENT: Mm moist mils anemia, NECK: + JVD No Bruit CHEST: B/L decrease AE and crepts at bases CVS: S1S2 Irr ABD: Obese ,ventral hernia RT UQ , mild tendernes, no rebound or guarding. 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 Code(s): I48.91 - UNSPECIFIED ATRIAL FIBRILLATION Qualifiers: Atrial fibrillation type: unspecified Qualified Code(s): I48.91 - Unspecified atrial fibrillation (2) Diastolic CHF Assessment/Plan: Patient has sever diastolic HF on ARBs , Lasix and B Blockers with amlodipine will F/U ECHO, Cardiology consult IV lasix,daily wt F/U Cardiology recommendations. Code(s): I50.30 - UNSPECIFIED DIASTOLIC (CONGESTIVE) HEART FAILURE Qualifiers : Congestive heart failure chronicity: chronic Qualified Code(s): I50.32 - Chronic diastolic (congestive) heart failure (3) HTN (hypertension) Assessment/Plan: Well controlledARBs are on hold will hold amlodipine for LE edema. Code(s): I10 - ESSENTIAL (PRIMARY) HYPERTENSION (4) T2DM (type 2 diabetes mellitus) Code(s): E11.9 - TYPE 2 DIABETES MELLITUS WITHOUT COMPLICATIONS Qualifiers: (5) Hypothyroidism Assessment/Plan: Will F/U TSH resume Levoythyroxine. Code(s): E03.9 - HYPOTHYROIDISM, UNSPECIFIED (6) CKD stage 3 due to type 2 diabetes mellitus Assessment/Plan: renal function are stable F/U Nephrology recommendations Code(s): E11.22 - TYPE 2 DIABETES MELLITUS W DIABETIC CHRONIC KIDNEY DISEASE N18.3 - CHRONIC KIDNEY DISEASE, STAGE 3 (MODERATE) (7) Pleural effusion due to CHF (congestive heart failure) Code(s): I50.9 - HEART FAILURE, UNSPECIFIED (8) Pulmonary arterial hypertension Assessment/Plan: Patient has Pulmonary HTN , never worked Up will F/U with Cardiology consult recommendations. consider pulmonary work up to R/O HILARIA Code(s): I27.2 - OTHER SECONDARY PULMONARY HYPERTENSION
== END 2016-11-30 13:21 | disposition home or self-care (01) | DRG 393 ==
LOC: JER 10:30 → JERBED 15:26 → J6S 17:15 → OBSVTOIN 11-26 08:59
PROVIDERS: ADMIT Internal Medicine Hematology; ATTEND Internal Medicine Hematology
DX: K43.9 Ventral hernia without obstruction or gangrene (principal); J96.01 Acute respiratory failure with hypoxia; I50.33 Acute on chronic diastolic (congestive) heart failure; N17.9 Acute kidney failure, unspecified; I13.0 Hypertensive heart and chronic kidney disease with heart failure and stage 1 through stage 4 chronic kidney disease, or unspecified chronic kidney disease; Z68.41 Body mass index [BMI] 40.0-44.9, adult; R18.8 Other ascites; K83.8 Other specified diseases of biliary tract; I27.2 Other secondary pulmonary hypertension; I48.91 Unspecified atrial fibrillation; N18.3 Chronic kidney disease, stage 3 (moderate); E66.9 Obesity, unspecified; R60.0 Localized edema; E11.22 Type 2 diabetes mellitus with diabetic chronic kidney disease; G47.33 Obstructive sleep apnea (adult) (pediatric); E03.9 Hypothyroidism, unspecified; E87.70 Fluid overload, unspecified; E11.65 Type 2 diabetes mellitus with hyperglycemia; E11.21 Type 2 diabetes mellitus with diabetic nephropathy
CPT/HCPCS: 36415; 36600; 71010-TC; 71020-TC; 71250-TC; 74176-TC; 76705-TC; 76775-TC; 80048; 80053; 80074; 81003; 81015; 82436; 82570; 82803; 83036; 83690; 83735; 83880; 84100; 84133; 84155; 84156; 84165; 84300; 84484; 84540; 85025; 85610; 87086; 90670; 93005; 93010; 93306-TC; 94761; 99284-25; G0378

== ENCOUNTER 2016-12-09 00:47 | Inpatient (IN) | payer OTHER ==
[2016-12-09] MEDS ORDERED: ONDANSETRON 4 MG/2 ML VIAL IVPUSH ONE ×2 (01:08→05:05)
[2016-12-09] MEDS ORDERED: morphine CARPU-JECT 4 MG/1 ML DISP.SYRIN IVPUSH ONE (01:08)
--- NOTE | 2016-12-09 01:10 | PDOC ---
History of Present Illness - General Chief Complaint: Pain, Acute Stated Complaint: PAIN,ABD/BACK Time Seen by Provider: 12/09/16 01:00 History Source: Patient, Family (Son) Exam Limitations: No Limitations - History of Present Illness Travel History: No Initial Comments: 12/09/16 01:14 71yo Female patient w/ PmHx: Afib (Coumadin), CKD, CHF, CAD, Cholecystectomy, HTN, IDDM, presents to ED c/o Acute onset Abdominal Pain that began on Monday after taking Lopressor per son. Patient was seen at Dr. Norris's office by Dr. Betancur," and prescribed Xanax. Son states patient did not take her medications at all on Monday and Monday with resolution of symptoms. Patient was recently taken off Xarelto and put on Warfarin. Son states mother woke up in good spirits today, and developed pain again after taking Lopressor. Associated Nausea and back pain. Patient denies CP, fever, rash, diff breathing, cough, congestion, dizziness, confusion, or any other complaints at this time. PCP- Dr. Montiel Timing/Duration: reports: getting worse Quality: reports: moderate Abdominal Pain Onset Location: reports: RUQ, epigastric. denies: LUQ, RLQ, LLQ , periumbilical, suprapubic, generalized abdomen, flank, unknown, other Pain Radiation: reports: back. denies: no radiation, RUQ, LUQ, RLQ, LLQ, epigastric, periumbilical, flank, groin, scapula, shoulder, chest, other Activities at Onset: reports: no specific activity. denies: none, exertion, emotional upset, rest, sleep, eating, working, sexual intercourse, other Treatment Prior to Arrive: worse with: analgesics, antacids, cold pack, heat, laxative, enema, other Past History - Travel Traveled outside of the country in the last 30 days: No Close contact w/someone who was outside of country & ill: No - Past Medical History Allergies/Adverse Reactions: Allergies Allergy/AdvReac Type Severity Reaction Status Date / Time No Known Allergies Allergy Verified 12/09/16 01:01 Home Medications: Ambulatory Orders Insulin Lispro Protamin/Lispro [Humalog Mix 75-25 Vial] 24 unit SQ DAILY Potassium Chloride 20 meq PO DAILY 05/20/16 Atorvastatin Ca [Lipitor] 20 mg PO HS tablet 10/10/16 Fluticasone Prop 0.05% Nasal [Flonase -] 1 spray NS PRN PRN #0 spray 10/10/16 Diphenhydramine HCl [Benadryl Capsule -] 25 mg PO Q8H PRN #30 tab 11/28/16 Furosemide [Lasix -] 80 mg PO DAILY #30 tablet 11/28/16 Metoprolol Tartrate [Lopressor -] 50 mg PO BID #60 tablet 11/28/16 Anemia: No Asthma: Yes Cancer: No Cardiac Disorders: Yes (ARRHYTHMIA) CVA: No COPD: No CHF: No Dementia: No Diabetes: Yes GI Disorders: No Disorders: No HTN: Yes Liver Disease: No Seizures: No Thyroid Disease: No - Surgical History Abdominal Surgery: Yes Appendectomy: Yes Cardiac Surgery: No Cholecystectomy: Yes Lung Surgery: No Neurologic Surgery: No Orthopedic Surgery: No - Psycho/Social/Smoking Cessation Hx Anxiety: No Suicidal Ideation: No Smoking History: Never smoked Have you smoked in the past 12 months: No If you are a former smoker, when did you quit?: 30YRS AGO Hx Alcohol Use: No Drug/Substance Use Hx: No Substance Use Type: None Hx Substance Use Treatment: No Abd/GI Specific PMHX - Complaint Specific PMHX Colitis: No Diverticulitis: No Gall Bladder Disease: No GERD: No Hepatitis: No Irritable Bowel Synd (IBS): No Pancreatitis: No GI Ulcer Disease: No Review of Systems - Review of Systems Able to Perform ROS?: Yes Is the patient limited Mongolian proficient: No Constitutional: No: Chills, Fever Cardiac (ROS): No: Chest Pain, Chest Tightness ABD/GI: Yes: Abdominal Distended, Nausea, Abdominal cramping. No: Abd. Pain w/ defecation, Constipated, Diarrhea, Poor Appetite, Poor Fluid Intake, Rectal Bleeding, Vomiting : No: Burning, Dysuria, Discharge, Frequency, Flank Pain, Hematuria Musculoskeletal: Yes: Back Pain Integumentary: No: Rash, Sweating Neurological: No: Headache, Dizziness *Physical Exam - Physical Exam General Appearance: Yes: Nourished, Appropriately Dressed, Apparent Distress, Moderate Distress, Obese. No: Mild Distress, Severe Distress Neck: positive: Trachea midline, Supple. negative: Decreased range of motion, Stridor, Lymphadenopathy (R), Lymphadenopathy (L) Respiratory/Chest: positive: Lungs Clear, Normal Breath Sounds. negative: Chest Tender, Respiratory Distress, Accessory Muscle Use, Labored Respiration, Rapid RR, Rhonchi, Stridor, Wheezing Cardiovascular: positive: Irregularly Irregular. negative: Regular Rhythm, Regular Rate Gastrointestinal/Abdominal: positive: Tender, Soft, Decreased BS, Distended, Rebound, Tenderness (RUQ/Epigastric). negative: Guarding Musculoskeletal: positive: Normal Inspection. negative: CVA Tenderness Extremity: positive: Normal Capillary Refill, Normal Inspection, Normal Range of Motion, Pedal Edema, Swelling (3+ Pitting). negative: Calf Tenderness, Erythema, Inflammation Integumentary: positive: Normal Color, Dry, Warm Neurologic: positive: museum registrar II-XII NML intact, Fully Oriented, Alert, Normal Mood/ Affect, Normal Response, Motor Strength / ED Treatment Course - LABORATORY CBC & Chemistry Diagram: 12/09/16 01:30 12/09/16 01:30 - RADIOLOGY Radiology Studies Ordered: Category Date Time Status ABDOMEN & PELVIS CT WITH CONTR [CT] Stat CT Scan 12/09/16 01:08 Ordered CHEST X-RAY PORTABLE* [RAD] Stat Radiology 12/09/16 01:08 Ordered *DC/Admit/Observation/Transfer Diagnosis at time of Disposition: Pleural effusion, Acute on chronic diastolic CHF (congestive heart failure) - Discharge Dispostion Condition at time of disposition: Fair Admit: Yes
--- NOTE | 2016-12-09 01:13 | PDOC ---
ED Treatment Course - LABORATORY CBC & Chemistry Diagram: 12/13/16 07:00 12/13/16 07:00 Medical Decision Making - Medical Decision Making 12/09/16 01:12 agree with care from FACE MAN Jian *DC/Admit/Observation/Transfer Diagnosis at time of Disposition: Pleural effusion, Acute on chronic diastolic CHF (congestive heart failure) - Discharge Dispostion Condition at time of disposition: Fair
[2016-12-09 01:23] VITALS: BMI 39.8
[2016-12-09] MEDS ORDERED: morphine CARPU-JECT 4 MG/1 ML DISP.SYRIN ONE (01:33)
[2016-12-09] MEDS ORDERED: ONDANSETRON 4 MG/2 ML VIAL ONE ×4 (01:34→13:37)
[2016-12-09 01:51] LABS: BASOPHIL 0.8 % (0-2.0); EOSINOPHIL 0.5 % (0-4.5); MCH 22.3 pg (25.7-33.7); MCHC 31.3 g/dl (32.0-36.0); MEAN CELL VOLUME 71.4 fl (80-96); MEAN PLT VOLUME 8.2 fl (7.5-11.1); PLATELET COUNT 326 K/MM3 (134-434); RDW 20.8 % (11.6-15.6); WHITE BLOOD COUNT 7.4 K/mm3 (4.0-10.0)
[2016-12-09] MEDS ORDERED: SODIUM CHLORIDE 250 ML IV STA (01:53)
[2016-12-09 02:13] LABS: INR 1.35 (0.82-1.09); PROTHROMBIN TIME (PATIENT) 14.9 SEC (9.98-11.88)
[2016-12-09 02:14] LABS: ALBUMIN 3.3 g/dl (3.4-5.0); AMYLASE 49 U/L (25-115); ANION GAP 13 (8-16); BILIRUBIN,DIRECT 1.2 mg/dL (0.0-0.2); BILIRUBIN,TOTAL 2.1 mg/dL (0.2-1.0); CALCIUM 8.8 mg/dL (8.5-10.1); CO2 26 mmol/L (21-32); CREATININE 2.2 mg/dL (0.55-1.02); GLUCOSE,RANDOM 112 mg/dL (74-106); SGOT/AST 27 U/L (15-37); SGPT/ALT 20 U/L (12-78)
[2016-12-09 02:16] LABS: ACTIVATED PTT 31.5 SECONDS (26.9-34.4)
[2016-12-09 02:18] LABS: ALK PHOS 203 U/L (45-117); CPK 87 IU/L (26-192); TROPONIN I < 0.02 ng/ml (0.00-0.05)
[2016-12-09] MEDS ORDERED: FUROSEMIDE 40 MG/4 ML INJECTABLE VIAL IVPUSH ONE (02:30)
[2016-12-09] MEDS ORDERED: POTASSIUM CHLORIDE TABS 20 MEQ TABLET.ER (FP) PO ONE ×4 (04:09→04:26)
[2016-12-09] MEDS ORDERED: FUROSEMIDE 40 MG/4 ML INJECTABLE VIAL ONE (04:10)
[2016-12-09 05:02] LABS: URINE APPEARANCE CLOUDY; URINE BILIRUBIN NEGATIVE (NEGATIVE); URINE BLOOD 3+ (NEGATIVE); URINE COLOR AMBER; URINE GLUCOSE (UA) NEGATIVE (NEGATIVE); URINE KETONE NEGATIVE (NEGATIVE); URINE NITRITE NEGATIVE (NEGATIVE); URINE UROBILINOGEN NEGATIVE mg/dL (0.2-1.0)
[2016-12-09 05:06] LABS: URINE LEUK ESTERASE 3+ (NEGATIVE); URINE PROTEIN 1+ (NEGATIVE)
[2016-12-09] MEDS ORDERED: LEVOFLOXACIN 500 MG IVPB 100 ML IVPB ONE ×2 (05:19→05:28)
[2016-12-09 05:20] LABS: URINE BACTERIA MANY /hpf (NONE SEEN); URINE HYALINE CAST 9 /lpf; URINE MUCUS RARE; URINE RBC 115 /hpf (0-3); URINE WBC 187 /hpf (3-5)
[2016-12-09 05:49] LABS: ANISOCYTOSIS 1+; MACROCYTOSIS 1+; MICROCYTOSIS 1+
[2016-12-09 05:50] LABS: POIKILOCYTOSIS FEW
[2016-12-09 06:05] LABS: ARTERIAL BLD GAS O2 SATURATION 94.6 % (90-98.9); ARTERIAL BLOOD GAS BASE EXCESS -2.6 meq/l (-2-2); ARTERIAL BLOOD GAS HCO3 20.8 meq/L (22-26); ARTERIAL BLOOD GAS PO2 73.6 mmHg (80-100); ARTERIAL BLOOD GAS pH 7.41 (7.35-7.45)
[2016-12-09 06:06] LABS: ALLENS TEST POSITIVE; ART PUNCT SITE RIGHT RADIAL; METHEMOGLOBIN 0.1 % (0.4-1.5)
[2016-12-09 06:07] LABS: LPM/O2% 2; PT. ON O2? YES; TYPE OF O2 NASAL CANNULA
--- NOTE | 2016-12-09 08:50 | EKG ---
Test Reason : Blood Pressure : / mmHG Vent. Rate : 116 BPM Atrial Rate : 111 BPM P-R Int : 000 ms QRS Dur : 074 ms QT Int : 344 ms P-R-T Axes : 000 097 160 degrees QTc Int : 478 ms ATRIAL FIBRILLATION WITH RAPID VENTRICULAR RESPONSE RIGHTWARD AXIS LOW VOLTAGE QRS NONSPECIFIC ST AND T WAVE ABNORMALITY ABNORMAL ECG WHEN COMPARED WITH ECG OF 23-NOV-2016 11:52, CRITERIA FOR SEPTAL INFARCT ARE NO LONGER PRESENT NONSPECIFIC T WAVE ABNORMALITY NO LONGER EVIDENT IN ANTERIOR LEADS Confirmed by ARGENTINA TINEO MD ([id number]) on 12/09/2016 8:50:00 AM Referred By: Confirmed By:ARGENTINA TINEO MD
[2016-12-09] MEDS ORDERED: METOCLOPRAMIDE HCL INJECTION 10 MG/2 ML VIAL IM ONE (09:40)
--- NOTE | 2016-12-09 09:48 | CON.GI ---
Consult Consult Specialty:: Gastroenterology for Dr. Davis Reason for Consultation:: Abdominal Pain; Hyperbilirubinemia - History of Present Illness Chief Complaint: Abdominal pain History of Present Illness: 71 yo F with past medical history not limted to Hilario. Rashaun (on Coumadin), CKD, CHF, IDDM, and HTN who presented to the ED last night for diffuse stabbing abdominal pain while at rest starting around 7 hours from now. She states that she took her Lopressor last night right before the pain began to develop. She has never had this type of abdominal pain before and states she has not wanted to eat anything due to associated nausea and vomiting. She describes her emesis as non- bilious; non-bloody and only a one time episode. Pt states her last bowel movement was yesterday which was normal quality and character without noted blood or mucus seen. Denies any fever/chills, headaches, polyuria, dysuria. Pt notes having a cholecystectomy and appendectomy many years ago. Pt states she did not have a tube placed after her cholecystectomy or any complications that she remembers. Most recent RUQ abdominal ultrasound on 11/2016 shows a dilated CBD at 12mm. From previous records no further work-up was done due to asymptomatic presentation in November. - History Source History Provided By: Patient, Medical Record Limitations to Obtaining History: No Limitations - Past Medical History Cardio/Vascular: Yes: AFIB, CHF, HTN, Hyperlipdemia Endocrine: Yes: Diabetes Mellitus - Past Surgical History Past Surgical History: Yes: Appendectomy, Cataract Removal, Cholecystectomy (~ 30 years ago) - Alcohol/Substance Use Hx Alcohol Use: No History of Substance Use: reports: None - Smoking History Smoking history: Never smoked Have you smoked in the past 12 months: No If you are a former smoker, when did you quit?: 30YRS AGO - Social History Usual Living Arrangement: [facility] (SNF) Place of : Other ([place]) Came to [place] (year[place] When she was 36yo History of Recent Travel: No Home Medications - Allergies Allergies/Adverse Reactions: Allergies Allergy/AdvReac Type Severity Reaction Status Date / Time No Known Allergies Allergy Verified 12/09/16 01:01 - Home Medications Home Medications: Ambulatory Orders Insulin Lispro Protamin/Lispro [Humalog Mix 75-25 Vial] 24 unit SQ DAILY Potassium Chloride 20 meq PO DAILY 05/20/16 Atorvastatin Ca [Lipitor] 20 mg PO HS tablet 10/10/16 Fluticasone Prop 0.05% Nasal [Flonase -] 1 spray NS PRN PRN #0 spray 10/10/16 Diphenhydramine HCl [Benadryl Capsule -] 25 mg PO Q8H PRN #30 tab 11/28/16 Furosemide [Lasix -] 80 mg PO DAILY #30 tablet 11/28/16 Metoprolol Tartrate [Lopressor -] 50 mg PO BID #60 tablet 11/28/16 Family Disease History - Family Disease History Family Disease History: Heart Disease: Father, Mother Physical Exam-GI Vital Signs: Vital Signs Temperature 97.9 F 12/09/16 06:30 Pulse Rate 125 H 12/09/16 06:30 Respiratory Rate 20 12/09/16 06:30 Blood Pressure 105/63 12/09/16 06:30 O2 Sat by Pulse Oximetry (%) 97 12/09/16 05:24 Constitutional: Yes: Moderate Distress, Obese Eyes: Yes: Conjunctiva Clear, EOM Intact, PERRL. No: Sclera Icterus Cardiovascular: Yes: Tachycardia, Pulse Irregular, Murmur (trace systolic murmur at the apex) Respiratory: Yes: Regular, On Nasal O2 (2LNC), Rales (diffusely throughout lung arceo). No: Accessory Muscle Use, Wheezes Gastrointestinal Inspection: Yes: Distention ...Auscultate: Yes: Hypoactive Bowel Sounds ...Palpate: Yes: Mass (ventral hernia appreciated on palpation), Soft, Tenderness (LUQ>RUQ). No: Guarding, Hepatomegaly, Splenomegaly ...Percussion: Yes: Fluid Wave ...Rectal Exam: Yes: Guaiac Negative, Sphincter Tone Normal, Other (Soft brown stool). No: Mass Edema: Yes (Non-pitting) Peripheral Pulses WNL: Yes Neurological: Yes: Alert, Oriented Psychiatric: Yes: Alert, Oriented Labs: INR, PTT INR 1.35 (0.82-1.09) H 12/09/16 01:30 Imaging - Results Cat Scan: Report Reviewed, Image Reviewed (B/L Pleural effusions noted; Anasarca prevalent in abdomen. post-surgical changes to GB fossa noted. Pancreas without stranding or other information seen) EKG: Image Reviewed (A. Fib; QTc 468) Problem List - Problems (1) Abdominal pain Assessment/Plan: 71yo F with sudden onset of stabbing abdominal pain with associated nausea and vomiting without any changes in bowel habits. Given direct hyperbilirubinemia, previous US in November 2016, and sudden onset of abdominal pain cannot rule out a retained stone that is now obstructing vs a new formed gallstone in the biliary tree. Pt currently in acute on chronic diastolic heart failure and would not be stable for potential ERCP. --Recommend MRCP w/o contrast considering her CKD for better visualization of the biliary tree --Karlene in agreement of plan and understands what MRCP entails --Trend LFTs --Avoid Zofran due to QTc 468 --Renally adjusted Reglan 5mg one time dose given for current episode of nausea --Reglan for further nausea control --Clear liquid diet for now --Will order a stat LA and CRP just to r/o any suspicion of mesenteric ischemia due to pain reported out of proportion compared to physical exam --Start Pantoprazole 40mg IV BID Working DDx: Obstructive stone vs. Congestive hepatopathy vs. Duodenal ulcer; low suspicion of Mesenteric Ischemia, but will r/o ATTENDING PHYSICIAN STATEMENT I saw and evaluated the patient. I reviewed the resident's note and discussed the case with the resident. I agree with the resident's findings and plan as documented. SUBJECTIVE: 72 hours of LUQ with vomiting. OBJECTIVE: Anicteric, Alert Lungs: decerased sounds at bases Cor irreg irreg, nl S1S2 Abd: soft, BS normoactive, healed RLQ and vertical right suprapubic inicisons nontender ASSESSMENT AND PLAN: Await MRI , Trial of clear liquids. If MRCP is unrevealing may need to consider endoscopies next week if cardiologically feasible. Code(s): R10.9 - UNSPECIFIED ABDOMINAL PAIN Qualifiers: Qualified Code(s): R10.11 - Right upper quadrant pain
[2016-12-09] MEDS: FUROSEMIDE 40 MG TABLET (FP) PO SCH (09:49)
[2016-12-09] MEDS: METOPROLOL TARTRATE 50 MG TABLET (FP) PO SCH ×2 (09:49→21:25)
[2016-12-09] MEDS: INSULIN (NOVOLOG MIX 70/30) 100 UNITS/ML MDV SQ SCH (09:59)
[2016-12-09] MEDS ORDERED: INSULIN (NOVOLOG MIX 70/30) 100 UNITS/ML MDV SQ SCH (10:00)
[2016-12-09] MEDS: PANTOPRAZOLE 20 MG TABLET (FP) PO SCH (10:02)
[2016-12-09 10:14] LABS: ALBUMIN 2.9 g/dl (3.4-5.0); ALK PHOS 186 U/L (45-117); ANION GAP 11 (8-16); BILIRUBIN,TOTAL 1.9 mg/dL (0.2-1.0); CALCIUM 8.5 mg/dL (8.5-10.1); CO2 25 mmol/L (21-32); CREATININE 2.3 mg/dL (0.55-1.02); GLUCOSE,RANDOM 162 mg/dL (74-106); SGOT/AST 26 U/L (15-37); SGPT/ALT 19 U/L (12-78); TOT PROT 6.4 g/dl (6.4-8.2)
[2016-12-09 10:23] LABS: INR 1.37 (0.82-1.09); PROTHROMBIN TIME (PATIENT) 15.2 SEC (9.98-11.88)
[2016-12-09 10:24] LABS: BASOPHIL 0.5 % (0-2.0); EOSINOPHIL 0.1 % (0-4.5); MCH 22.2 pg (25.7-33.7); MCHC 30.4 g/dl (32.0-36.0); MEAN CELL VOLUME 72.9 fl (80-96); MEAN PLT VOLUME 8.4 fl (7.5-11.1); NEUTROPHILS 79.3 % (42.8-82.8); PLATELET COUNT 300 K/MM3 (134-434); RDW 20.7 % (11.6-15.6); WHITE BLOOD COUNT 7.2 K/mm3 (4.0-10.0)
[2016-12-09] MEDS: INSULIN SLIDING SCALE (NOVOLOG) 1 VIAL SQ SCH ×2 (11:44→16:13)
[2016-12-09 11:45] LABS: MAGNESIUM 2.3 mg/dL (1.8-2.4)
[2016-12-09] MEDS ORDERED: PT OWN MED DRAWER 7, Y5N ONE (13:51)
--- NOTE | 2016-12-09 14:23 | CON.NEP ---
Consult Consult Specialty:: Nephrology Referred by:: Dr. Montiel Reason for Consultation:: CKD/PERI - History of Present Illness Chief Complaint: Abd pain History of Present Illness: This is a 71 year old woman known to our service from prior admissions with PMhx of Afib, CHF, IDDM, CKD Stage 3 (baseline Cr 1.6-1.9) who presented with complaints of Abd pain and found to hae volume overload and BUN/Cr of 33/2.3. Pt states that she has continued abd pain. Pt reports compliance with Lasix at home. Pt was taken off ACEi last admission and unclear if she had resumed it on discharge. Pt reports good urine output. No flank pain, NSIAD use, recent contrast exposure. + mild nausea. - History Source History Provided By: Patient Limitations to Obtaining History: No Limitations - Past Medical History Cardio/Vascular: Yes: AFIB, CHF, HTN, Hyperlipdemia Renal/: Yes: Renal Inusuff Endocrine: Yes: Diabetes Mellitus - Past Surgical History Past Surgical History: Yes: Appendectomy, Cataract Removal, Cholecystectomy - Alcohol/Substance Use Hx Alcohol Use: No History of Substance Use: reports: None - Smoking History Smoking history: Never smoked Have you smoked in the past 12 months: No If you are a former smoker, when did you quit?: 30YRS AGO - Social History Usual Living Arrangement: [facility] (SNF) History of Recent Travel: No Home Medications - Allergies Allergies/Adverse Reactions: Allergies Allergy/AdvReac Type Severity Reaction Status Date / Time No Known Allergies Allergy Verified 12/09/16 01:01 - Home Medications Home Medications: Ambulatory Orders Insulin Lispro Protamin/Lispro [Humalog Mix 75-25 Vial] 24 unit SQ DAILY Potassium Chloride 20 meq PO DAILY 05/20/16 Atorvastatin Ca [Lipitor] 20 mg PO HS tablet 10/10/16 Fluticasone Prop 0.05% Nasal [Flonase -] 1 spray NS PRN PRN #0 spray 10/10/16 Diphenhydramine HCl [Benadryl Capsule -] 25 mg PO Q8H PRN #30 tab 11/28/16 Furosemide [Lasix -] 80 mg PO DAILY #30 tablet 11/28/16 Metoprolol Tartrate [Lopressor -] 50 mg PO BID #60 tablet 11/28/16 Family Disease History - Family Disease History Family Disease History: Heart Disease: Father, Mother Review of Systems - Review of Systems Constitutional: reports: Loss of Appetite. denies: Chills, Fever Neck: reports: No Symptoms Cardiovascular: reports: Shortness of Breath. denies: Chest Pain, Edema Respiratory: reports: No Symptoms Gastrointestinal: reports: Abdominal Pain. denies: Diarrhea, Vomiting Genitourinary: reports: No Symptoms Musculoskeletal: reports: No Symptoms Integumentary: reports: No Symptoms Neurological: reports: No Symptoms Nephrology Consult - Height Height: 5 ft 4 in - Weight Weight: 232 lb - BMI Body Mass Index (BMI): 39.8 - Lab Results CBC,BMP: CBC, BMP 12/09/16 09:35 12/09/16 09:35 Anion Gap: Anion Gap Anion Gap 11 (8-16) 12/09/16 09:35 - Imaging Chest X-ray: Report Reviewed Cat Scan: Report Reviewed - Physical Examination Vital Signs: Vital Signs Temperature 97.9 F 12/09/16 10:00 Pulse Rate 123 H 12/09/16 10:00 Respiratory Rate 20 12/09/16 10:00 Blood Pressure 106/60 12/09/16 10:00 O2 Sat by Pulse Oximetry (%) 97 12/09/16 10:00 Constitutional: Yes: No Distress Eyes: Yes: Conjunctiva Clear HENT: Yes: Atraumatic, Normocephalic Neck: Yes: Supple Cardiovascular: Yes: Regular Rate and Rhythm. No: JVD, Murmur, Rub Respiratory: Yes: Regular, Diminished. No: Rales, Rhonchi, Wheezes Gastrointestinal: Yes: Normal Bowel Sounds, Soft, Tenderness Renal/: No: Bladder Distention, CVA Tenderness - Left, CVA Tenderness - Right , Luo Present Extremities: No: Cold, Cool, Cyanosis Edema: LLE: Trace, RLE: Trace Neurological: Yes: Alert, Oriented Problem List - Problems (1) Abdominal pain Code(s): R10.9 - UNSPECIFIED ABDOMINAL PAIN Qualifiers: Abdominal location: right upper quadrant Qualified Code(s): R10.11 - Right upper quadrant pain (2) Acute on chronic diastolic CHF (congestive heart failure) Code(s): I50.33 - ACUTE ON CHRONIC DIASTOLIC (CONGESTIVE) HEART FAILURE (3) Atrial fibrillation Code(s): I48.91 - UNSPECIFIED ATRIAL FIBRILLATION Qualifiers: Atrial fibrillation type: unspecified Qualified Code(s): I48.91 - Unspecified atrial fibrillation (4) CKD stage 3 due to type 2 diabetes mellitus Code(s): E11.22 - TYPE 2 DIABETES MELLITUS W DIABETIC CHRONIC KIDNEY DISEASE N18.3 - CHRONIC KIDNEY DISEASE, STAGE 3 (MODERATE) (5) Edema extremities Code(s): R60.0 - LOCALIZED EDEMA Assessment/Plan 71 year old woman known to our service from prior admissions with PMhx of Afib, CHF, IDDM, CKD Stage 3 (baseline Cr 1.6-1.9) who presented with complaints of Abd pain and found to hae volume overload and BUN/Cr of 33/2.3. #PERI on CKD Stage 3 Cr up from 1.9 to 2.3 on discharge Check urine studies for FeNa, FeUrea continue lasix as needed for management of volume overload Check UPCR r/o nephrotic syndrome as a contributing factor for edema Trend BUN/Cr avoid JOSH/ARB at this time #Acute on Chronic CHF continue Laisx Trend daily weights #Abd pain s/p CT of Abd GI and Surgical follow up #IDDM continue Insulin sliding scale Thank you Will follow Javed Douglass DO Current Medications Atorvastatin Calcium (Lipitor -) 20 mg PO HS HAIDER Diphenhydramine HCl (Benadryl -) 25 mg PO Q8H PRN PRN Reason: ITCHINESS Fluticasone Propionate (Flonase -) 1 spray NS PRN PRN PRN Reason: NASAL CONGESTION Furosemide (Lasix -) 80 mg PO DAILY [facility] Last Admin: 12/09/16 09:49 Dose: 80 mg Insulin Aspart (Novolog Vial Sliding Scale -) 1 vial SQ TIDAC [facility] PRN Reason: Protocol Last Admin: 12/09/16 11:44 Dose: Not Given Insulin Aspart (Novolog Mix 70/30 Vial) 15 units SQ DAILY [facility] Last Admin: 12/09/16 09:59 Dose: Not Given Metoprolol Tartrate (Lopressor -) 50 mg PO BID [facility] Last Admin: 12/09/16 09:49 Dose: 50 mg Pantoprazole Sodium (Protonix -) 20 mg PO DAILY [facility] Last Admin: 12/09/16 10:02 Dose: 20 mg Warfarin Sodium (Coumadin -) 5 mg PO ONCE@1800 ONE Stop: 12/09/16 18:01
--- NOTE | 2016-12-09 16:28 | HP ---
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, CKD Stage 3 base line GFR is around 25, HF with preserved EF last ECHO 1 wk ago during previous Hospitalization, NYHA satge 3 with PND and orthopnea, sever Pulmonary HTN with TR Rt sided HF with chronic LE swelling and abd wall sweling , Chronic AF rate controlled last wk patient was admitted with scimitar presentation, Abd ultrasound shows dilayted CBD s/P Cholycytectomy normal, hepatic enzymes, Patient was evaluated by Surgery, Cardiology, Pulmonary and Nephrology and was Dc Home after Diuresus, with Diuresis patient symptoms resolved subsequently patient presented to office RpT CBC BMP show base line value, yesterday developed worsenibg abd pain, nause and vomiting, pain is situated in Rt UQ and epigastrium , no fever, chills, dysuria, in the Ed w/u shows + UA mildly elevated TB and Alk Phosphate normal Heeptic enzymes elevated BNP admitted for further evaluation and management. History Source: Patient Limitations to Obtaining History: No Limitations - Past Medical History Cardiovascular: Yes: AFIB, CHF, HTN, Hyperlipdemia Renal/: Yes: Renal Inusuff Endocrine: Yes: Diabetes Mellitus - Past Surgical History Past Surgical History: Yes: Appendectomy, Cataract Removal, Cholecystectomy - Smoking History Smoking history: Never smoked Have you smoked in the past 12 months: No If you are a former smoker, when did you quit?: 30YRS AGO - Alcohol/Substance Use Hx Alcohol Use: No History of Substance Use: reports: None - Social History Usual Living Arrangement: Yes: With Child History of Recent Travel: No Home Medications - Allergies Allergies/Adverse Reactions: Allergies Allergy/AdvReac Type Severity Reaction Status Date / Time No Known Allergies Allergy Verified 12/09/16 01:01 - Home Medications Home Medications: Ambulatory Orders Insulin Lispro Protamin/Lispro [Humalog Mix 75-25 Vial] 24 unit SQ DAILY Potassium Chloride 20 meq PO DAILY 05/20/16 Atorvastatin Ca [Lipitor] 20 mg PO HS tablet 10/10/16 Fluticasone Prop 0.05% Nasal [Flonase -] 1 spray NS PRN PRN #0 spray 10/10/16 Diphenhydramine HCl [Benadryl Capsule -] 25 mg PO Q8H PRN #30 tab 11/28/16 Furosemide [Lasix -] 80 mg PO DAILY #30 tablet 11/28/16 Metoprolol Tartrate [Lopressor -] 50 mg PO BID #60 tablet 11/28/16 Family Disease History - Family Disease History Family Disease History: Heart Disease: Father, Mother Review of Systems - Review of Systems Constitutional: reports: Lethargy. denies: Fever HENT: denies: Difficult Swallowing, Ear Discharge Neck: reports: No Symptoms. denies: Pain on Movement Cardiovascular: reports: Edema, Shortness of Breath Respiratory: reports: Exercise Intolerance, Orthopnea, PND Gastrointestinal: reports: Abdominal Pain, Bloating, Nausea, Vomiting. denies: Melena, Rectal Bleeding, Vomiting Blood Genitourinary: reports: No Symptoms. denies: Burning, Discharge, Dysuria Musculoskeletal: reports: No Symptoms Integumentary: reports: No Symptoms, Blister Neurological: reports: No Symptoms. denies: Change in LOC, Change in Speech Endocrine: reports: No Symptoms Hematology/Lymphatic: reports: No Symptoms Psychiatric: reports: No Symptoms Pain Intensity: 6 Physical Examination Vital Signs: Vital Signs Temperature 97.6 F 12/09/16 14:00 Pulse Rate 78 12/09/16 14:00 Respiratory Rate 20 12/09/16 10:00 Blood Pressure 138/78 12/09/16 14:00 O2 Sat by Pulse Oximetry (%) 97 12/09/16 10:00 Elderly F sick looking c/o abd Pain HEENT: Moist, no anemia, PERRLA, EOMI NECK: JVD ++, normal range of movement CHEST: Basal decrease AE Basal Crepts CVS: S1S2 Irr Tachycardia SM TA ABD: Obese, distention, Hepatomegaly, Tend Rt UQ and Epigastriun, no rebound BS + EXT: +++ Kvain afeet Let LE Healing blisters. APPRAISAL MANAGER: AOX3 non focal. Labs: CBC, BMP 12/09/16 09:35 12/09/16 09:35 Imaging - Results Chest X-ray: Report Reviewed (Pleural effusion same as previous) Cat Scan: Report Reviewed (Pleural effusion, ascites, ventral hernia, noobstruction, normal pancreas.) EKG: Report Reviewed (Afib with RVR 110 low voltage EKG) Problem List - Problems (1) Abdominal pain Assessment/Plan: Abd pain of unknown etiology, GI input appreciated will keep patient NPO except meds, IV PPI, Reglna PRN, F/U MRCP and LFTs, possibalty CBD retained stone or congestive Hepatopathy due to Rt sided HF. Code(s): R10.9 - UNSPECIFIED ABDOMINAL PAIN Qualifiers: Abdominal location: right upper quadrant Qualified Code(s): R10.11 - Right upper quadrant pain (2) Acute on chronic diastolic CHF (congestive heart failure) Assessment/Plan: Ptresent with worsening LE swelling and elevated BNP cont Lasix F/U Renal recommondations IP/OP chart, Cardiology consult, Cont B Bloclkers. ACEI/ARbs are on Hold. Code(s): I50.33 - ACUTE ON CHRONIC DIASTOLIC (CONGESTIVE) HEART FAILURE (3) Atrial fibrillation Code(s): I48.91 - UNSPECIFIED ATRIAL FIBRILLATION Qualifiers: Atrial fibrillation type: unspecified Qualified Code(s): I48.91 - Unspecified atrial fibrillation (4) CKD stage 3 due to type 2 diabetes mellitus Code(s): E11.22 - TYPE 2 DIABETES MELLITUS W DIABETIC CHRONIC KIDNEY DISEASE N18.3 - CHRONIC KIDNEY DISEASE, STAGE 3 (MODERATE) (5) Pulmonary arterial hypertension Code(s): I27.2 - OTHER SECONDARY PULMONARY HYPERTENSION (6) Acute on chronic renal failure Code(s): N17.9 - ACUTE KIDNEY FAILURE, UNSPECIFIED N18.9 - CHRONIC KIDNEY DISEASE, UNSPECIFIED Qualifiers: Chronic kidney disease stage: stage 3 (moderate) (7) UTI (urinary tract infection) Assessment/Plan: UA + for LE, WBC and Bacteria considering high avelino will treat for UTI pending U Culture Ceftriaxone 1 gm IVSS Daily F/U Culture. Code(s): N39.0 - URINARY TRACT INFECTION, SITE NOT SPECIFIED (8) Hypothyroid Assessment/Plan: Cont Levothyroxine Code(s): E03.9 - HYPOTHYROIDISM, UNSPECIFIED (9) Obesity Assessment/Plan: BMI around 40 F/U as out patient with nutrition consult. Code(s): E66.9 - OBESITY, UNSPECIFIED Qualifiers: Obesity type: due to excess calories Body mass index: BMI 39.0-39.9
[2016-12-09] MEDS ORDERED: WARFARIN NA 5 MG TABLET (UD) PO ONE (18:00)
--- NOTE | 2016-12-09 18:17 | CON.CARD ---
Consult Consult Specialty:: cardiology Reason for Consultation:: hx diastolic CHF and severe pulmonary HTN; now with abdominal pain - History of Present Illness History of Present Illness: 71yo woman w/ PmHx: Afib (Coumadin), CKD, diastolic CHF, severe pulmonary HTN, Cholecystectomy, HTN, IDDM, obesity, sedentary lifestyle; arthritis, who presents to ED c/o Acute onset Abdominal Pain that began on Monday after taking Lopressor, per son. Patient was seen at Dr. Norris's office by Dr. Betancur," and prescribed Xanax. Son states patient did not take her medications at all on Monday and Monday, with resolution of symptoms. Patient was recently taken off Xarelto and put on Warfarin. Son states mother woke up in good spirits today , and developed pain again after taking Lopressor. Associated Nausea and back pain. Patient denies CP, fever, rash, diff breathing, cough, congestion, dizziness, confusion, or any other complaints at this time. PCP- Dr. Montiel - History Source History Provided By: Patient, Family Member, Medical Record Limitations to Obtaining History: Poor Historian - Past Medical History Cardio/Vascular: Yes: AFIB, CHF, HTN, Hyperlipdemia Pulmonary: Yes: Sleep Apnea (presumed; ?not yet confirmed with sleep studies) Renal/: Yes: Renal Inusuff Reproductive: Yes: Postmenopausal ...: No Endocrine: Yes: Diabetes Mellitus - Past Surgical History Past Surgical History: Yes: Appendectomy, Cataract Removal, Cholecystectomy - Alcohol/Substance Use Hx Alcohol Use: No History of Substance Use: reports: None - Smoking History Smoking history: Never smoked Have you smoked in the past 12 months: No If you are a former smoker, when did you quit?: 30YRS AGO - Social History Usual Living Arrangement: [facility] (S[facility]) History of Recent Travel: No Home Medications - Allergies Allergies/Adverse Reactions: Allergies Allergy/AdvReac Type Severity Reaction Status Date / Time No Known Allergies Allergy Verified 12/09/16 01:01 - Home Medications Home Medications: Ambulatory Orders Insulin Lispro Protamin/Lispro [Humalog Mix 75-25 Vial] 24 unit SQ DAILY Potassium Chloride 20 meq PO DAILY 05/20/16 Atorvastatin Ca [Lipitor] 20 mg PO HS tablet 10/10/16 Fluticasone Prop 0.05% Nasal [Flonase -] 1 spray NS PRN PRN #0 spray 10/10/16 Diphenhydramine HCl [Benadryl Capsule -] 25 mg PO Q8H PRN #30 tab 11/28/16 Furosemide [Lasix -] 80 mg PO DAILY #30 tablet 11/28/16 Metoprolol Tartrate [Lopressor -] 50 mg PO BID #60 tablet 11/28/16 Family Disease History - Family Disease History Family Disease History: Heart Disease: Father, Mother Review of Systems - Review of Systems Constitutional: reports: Lethargy, Loss of Appetite, Weakness Gastrointestinal: reports: Abdominal Pain, Nausea, Vomiting Musculoskeletal: reports: Muscle Weakness Neurological: reports: Weakness Psychiatric: reports: Anxiety, Depression - Risk Factors Known Risk Factors: Yes: Age, Hypercholesterolemia, Hypertension, Physical Inactivity, Other (diastolic CHF; AF; renal dysfunction) Vital Signs: Vital Signs Temperature 97.6 F 12/09/16 14:00 Pulse Rate 78 12/09/16 14:00 Respiratory Rate 20 12/09/16 10:00 Blood Pressure 138/78 12/09/16 14:00 O2 Sat by Pulse Oximetry (%) 97 12/09/16 10:00 Constitutional: Yes: Anxious, Obese Eyes: Yes: WNL HENT: Yes: WNL Neck: Yes: WNL Respiratory: Yes: Diminished Gastrointestinal: Yes: Soft, Abdomen, Obese Renal/: No: Anuria Cardiovascular: Yes: Tachycardia, Pulse Irregular JVD: No Carotid Bruit: No PMI: Non-Displaced Heart Sounds: Yes: S1 (varies in intensity) Murmur: Yes: Systolic Murmur, Grade 2 Musculoskeletal: Yes: Muscle Weakness Extremities: Yes: Cool Edema: Yes Edema: LLE: 1+, RLE: 1+ Peripheral Pulses WNL: No Peripheral Pulses: 1+ Left Doralis Pedis, 1+ Right Dorsalis Pedis Integumentary: Yes: WNL Neurological: Yes: Alert, Weakness Psychiatric: Yes: Other - Other Data Labs, Other Data: INR, PTT INR 1.37 (0.82-1.09) H 12/09/16 09:35 Ejection Fraction %: LVEF > or = 40 % Imaging - Results Chest X-ray: Image Reviewed (bibasal pleural effusion) Problem List - Problems (1) Abdominal pain Assessment/Plan: ascites, anasarca (CT abdomen). TNI < 0.02. F/u with GI; for ERCP/MRCP. Code(s): R10.9 - UNSPECIFIED ABDOMINAL PAIN Qualifiers: Abdominal location: right upper quadrant Qualified Code(s): R10.11 - Right upper quadrant pain (2) Acute on chronic diastolic CHF (congestive heart failure) Assessment/Plan: on metoprolol and furosemide. F/u BUN/Cr, electrolytes, Is and Os, daily weight. TNI < 0.02 EKG: AF Stress MIBI when stable. Code(s): I50.33 - ACUTE ON CHRONIC DIASTOLIC (CONGESTIVE) HEART FAILURE (3) Atrial fibrillation Assessment/Plan: on metoprolol for HR control. Restarted on warfarin recently; subtherapeutic INR. Start IV heparin and hold warfarin until invasive Rx for abdominal issue is not considered necessary. TSH WNL. Code(s): I48.91 - UNSPECIFIED ATRIAL FIBRILLATION Qualifiers: Atrial fibrillation type: unspecified Qualified Code(s): I48.91 - Unspecified atrial fibrillation (4) Anasarca Code(s): R60.1 - GENERALIZED EDEMA (5) Ventral hernia Code(s): K43.9 - VENTRAL HERNIA WITHOUT OBSTRUCTION OR GANGRENE Qualifiers: Obstruction and gangrene presence: without obstruction or gangrene Qualified Code(s): K43.9 - Ventral hernia without obstruction or gangrene (6) HTN (hypertension) Assessment/Plan: on metoprolol and furosemide. Code(s): I10 - ESSENTIAL (PRIMARY) HYPERTENSION (7) Moderate to severe pulmonary hypertension Assessment/Plan: normal LVEF; mild-moderately reduced RVEF; mild MR; severe pulmonary HTN. Obese Presumed sleep apnea. f/u with second hand paper machine. Scheduled for heart failure/pulmonary HTN consult as outpatient at [facility]. Code(s): I27.2 - OTHER SECONDARY PULMONARY HYPERTENSION (8) Hypokalemia Assessment/Plan: likely secondary to vomiting, furosemide. Replete K+; f/u all electrolytes. Code(s): E87.6 - HYPOKALEMIA (9) Obesity Assessment/Plan: obese; sedentary. f/u lipids. Code(s): E66.9 - OBESITY, UNSPECIFIED Qualifiers: Obesity type: due to excess calories Body mass index: BMI 39.0-39.9 (10) UTI (urinary tract infection) Assessment/Plan: on antibiotics. f/u cultures. Code(s): N39.0 - URINARY TRACT INFECTION, SITE NOT SPECIFIED
[2016-12-09] MEDS ORDERED: PANTOPRAZOLE SODIUM 40 MG VIAL ONE (21:16)
[2016-12-09] MEDS ORDERED: SODIUM CHLORIDE 100 ML IVPB ONE (21:16)
[2016-12-09] MEDS: PANTOPRAZOLE SODIUM 40 MG in SODIUM CHLORIDE 100 ML IVPB SCH (21:25)
[2016-12-09] MEDS: ATORVASTATIN CA 20 MG TABLET (FP) PO SCH (21:25)
[2016-12-09] MEDS ORDERED: FLUTICASONE PROP 0.05% 16 GM NASAL SPRAY NS PRN (22:00)
[2016-12-10] MEDS: diphenhydrAMINE HCL 25 MG CAPSULE (FP) PO PRN ×2 (00:51→18:35)
--- NOTE | 2016-12-10 06:49 | PN ---
Progress Note, Physician History of Present Illness: seen and examined today in nad. no overnight events. no new complaints. states that her abdominal discomfort is improving. - Current Medication List Current Medications: Active Medications Atorvastatin Calcium (Lipitor -) 20 mg PO HS [facility] Last Admin: 12/09/16 21:25 Dose: 20 mg Diphenhydramine HCl (Benadryl -) 25 mg PO Q8H PRN PRN Reason: ITCHINESS Last Admin: 12/10/16 00:51 Dose: 25 mg Fluticasone Propionate (Flonase -) 1 spray NS BID PRN PRN Reason: RHINITIS Furosemide (Lasix -) 80 mg PO DAILY [facility] Last Admin: 12/09/16 09:49 Dose: 80 mg Pantoprazole Sodium 40 mg/ (Sodium Chloride) 100 mls @ 200 mls/hr IVPB BID [facility] Last Admin: 12/09/16 21:25 Dose: 200 mls/hr Ceftriaxone Sodium 1 gm/ (Dextrose) 50 mls @ 100 mls/hr IVPB DAILY [facility] Insulin Aspart (Novolog Vial Sliding Scale -) 1 vial SQ TIDAC [facility] PRN Reason: Protocol Last Admin: 12/09/16 16:13 Dose: Not Given Insulin Aspart (Novolog Mix 70/30 Vial) 15 units SQ DAILY [facility] Last Admin: 12/09/16 09:59 Dose: Not Given Metoprolol Tartrate (Lopressor -) 50 mg PO BID [facility] Last Admin: 12/09/16 21:25 Dose: 50 mg Pantoprazole Sodium (Protonix -) 20 mg PO DAILY [facility] Last Admin: 12/09/16 10:02 Dose: 20 mg - Objective Vital Signs: Vital Signs Temperature 98.1 F 12/10/16 06:00 Pulse Rate 97 H 12/10/16 06:00 Respiratory Rate 19 12/10/16 06:00 Blood Pressure 109/57 12/10/16 06:00 O2 Sat by Pulse Oximetry (%) 97 12/09/16 21:00 Constitutional: Yes: No Distress, Calm, Obese Eyes: Yes: Conjunctiva Clear, EOM Intact, PERRL HENT: Yes: Atraumatic, Normocephalic Neck: Yes: Supple, Trachea Midline Cardiovascular: Yes: Pulse Irregular, S1, S2. No: Regular Rate and Rhythm, Bradycardia, Tachycardia, Bruit, JVD, Gallop, Murmur, Rub, S3, S4, Varicosities Respiratory: Yes: Regular, Diminished. No: Rales, Rhonchi, Wheezes Gastrointestinal: Yes: Normal Bowel Sounds, Soft. No: Distention, Tenderness Edema: No Peripheral Pulses WNL: Yes Peripheral Pulses: Left Doralis Pedis: 2+, Right Dorsalis Pedis: 2+ Neurological: Yes: Alert, Oriented Psychiatric: Yes: Alert, Oriented Labs: INR, PTT INR 1.37 (0.82-1.09) H 12/09/16 09:35 - ....Imaging Chest X-ray: Report Reviewed, Image Reviewed EKG: Report Reviewed, Image Reviewed Other: Report Reviewed, Image Reviewed (tele-Afib, HR adequately controlled) Assessment/Plan 71 year old woman with a history of Afib on coumadin, chronic diastolic chf, severe pulm HTN, HTN, DMII, HLD, CKD, h/o cholecystectomy a/w abdominal pain and nausea. Abdominal pain/Nausea-with ascites -GI work up in progress, planned for MRCP -cardiac enzymes wnl x 1, no sign of ACS -ok to dc tele Afib-presumed chronic -HR is adequately controlled, cont metoprolol -INR subtherapeutic on admission -plan was to start heparin gtt and hold warfarin until determine if invasive treatments are required -ok to dc tele Acute on chronic diastolic CHF -not significantly volume overloaded on exam -cont current po Lasix for now -monitor I/Os, daily weight, bun/creat, electrolytes -as per Dr. Winter [facility] stress Mibi when stable -echo 11/30/16 showed Normal LV systolic function, mild to mod red RV function, mild MR, severe Pulm HTN HTN-well controlled, low normal BP -cont current medical regimen for now Pulm HTN-mod to severe -last echo showed Normal LV systolic function, mild to mod red RV function, mild MR, severe Pulm HTN -presumed HILARIA -plan was for outpatient pulmonary and CHF/pulm HTN evaluation at [facility]
[2016-12-10] MEDS: INSULIN SLIDING SCALE (NOVOLOG) 1 VIAL SQ SCH ×3 (06:57→18:25)
[2016-12-10 07:56] LABS: MCH 22.3 pg (25.7-33.7); MCHC 31.2 g/dl (32.0-36.0); MEAN CELL VOLUME 71.5 fl (80-96); MEAN PLT VOLUME 8.3 fl (7.5-11.1); PLATELET COUNT 269 K/MM3 (134-434); RDW 20.9 % (11.6-15.6); WHITE BLOOD COUNT 5.4 K/mm3 (4.0-10.0)
[2016-12-10] MEDS ORDERED: PANTOPRAZOLE SODIUM 40 MG VIAL ONE ×2 (07:59→22:05)
[2016-12-10] MEDS ORDERED: SODIUM CHLORIDE 100 ML IVPB ONE ×2 (07:59→22:05)
[2016-12-10 08:03] LABS: ALBUMIN 2.6 g/dl (3.4-5.0); ANION GAP 9 (8-16); BILIRUBIN,TOTAL 1.4 mg/dL (0.2-1.0); CALCIUM 8.5 mg/dL (8.5-10.1); CO2 26 mmol/L (21-32); CREATININE 2.3 mg/dL (0.55-1.02); GLUCOSE,RANDOM 159 mg/dL (74-106); MAGNESIUM 2.4 mg/dL (1.8-2.4); PHOSPHOROUS 3.5 mg/dL (2.5-4.9); SGOT/AST 27 U/L (15-37); SGPT/ALT 17 U/L (12-78)
[2016-12-10 08:04] LABS: ALK PHOS 156 U/L (45-117); TOT PROT 5.8 g/dl (6.4-8.2)
[2016-12-10] MEDS ORDERED: HEPARIN NA (PORCINE) 5,000 UNITS/ML 1ML VIAL IVPUSH PRN ×2 (08:13)
[2016-12-10 09:39] LABS: METAMYELOCYTE 2 % (0-2); MYELOCYTE 1 % (0-2); PLATELET ESTIMATE ADEQUATE (NORMAL); TOTAL CELLS COUNTED 100
--- NOTE | 2016-12-10 10:14 | PN ---
Progress Note (short form) - Note Progress Note: Renal Follow up for PERI on CKD Pt seen and examined at the bedside feels much better, denies any abd pain today no N/V/D, no chest pain or sob Vital Signs Temperature 98.1 F 12/10/16 06:00 Pulse Rate 97 H 12/10/16 06:00 Respiratory Rate 19 12/10/16 06:00 Blood Pressure 109/57 12/10/16 06:00 O2 Sat by Pulse Oximetry (%) 97 12/09/16 21:00 Intake & Output 12/07/16 12/08/16 12/09/16 12/10/16 23:59 23:59 23:59 23:59 Intake Total 340 300 Output Total 100 Balance 240 300 Weight 232 lb Gen: NAD CVS: RRR Lungs: CTA abd: soft, obese, NT/ND Ext: No edema CBC, BMP 12/10/16 06:00 12/10/16 06:00 Current Medications Atorvastatin Calcium (Lipitor -) 20 mg PO HS [facility] Last Admin: 12/09/16 21:25 Dose: 20 mg Diphenhydramine HCl (Benadryl -) 25 mg PO Q8H PRN PRN Reason: ITCHINESS Last Admin: 12/10/16 00:51 Dose: 25 mg Fluticasone Propionate (Flonase -) 1 spray NS BID PRN PRN Reason: RHINITIS Furosemide (Lasix -) 80 mg PO DAILY [facility] Last Admin: 12/09/16 09:49 Dose: 80 mg Heparin Sodium (Porcine) (Heparin -) 1,000 unit IVPUSH PRN PRN PRN Reason: Heparin Heparin Sodium (Porcine) (Heparin -) 5,000 unit IVPUSH PRN PRN PRN Reason: Heparin Pantoprazole Sodium 40 mg/ (Sodium Chloride) 100 mls @ 200 mls/hr IVPB BID [facility] Last Admin: 12/09/16 21:25 Dose: 200 mls/hr Ceftriaxone Sodium 1 gm/ (Dextrose) 50 mls @ 100 mls/hr IVPB DAILY [facility] Heparin Sodium/Dextrose (Heparin Infusion -) 500 mls @ 20 mls/hr IVPB TITR [facility] ; 1,000 UNITS/HR PRN Reason: Protocol Insulin Aspart (Novolog Vial Sliding Scale -) 1 vial SQ TIDAC [facility] PRN Reason: Protocol Last Admin: 12/10/16 06:57 Dose: Not Given Insulin Aspart (Novolog Mix 70/30 Vial) 15 units SQ DAILY [facility] Last Admin: 12/09/16 09:59 Dose: Not Given Metoprolol Tartrate (Lopressor -) 50 mg PO BID [facility] Last Admin: 12/09/16 21:25 Dose: 50 mg Pantoprazole Sodium (Protonix -) 20 mg PO DAILY [facility] Last Admin: 12/09/16 10:02 Dose: 20 mg A/P 71 year old woman known to our service from prior admissions with PMhx of Afib, CHF, IDDM, CKD Stage 3 (baseline Cr 1.6-1.9) who presented with complaints of Abd pain and found to hae volume overload and BUN/Cr of 33/2.3. #PERI on CKD Stage 3 Cr up from 1.9 to 2.3 on discharge Urine studies consistent with renal hypoperfusion/pre-renal injury however given effusions on CT chest would continue diuretics as directed by cardiology Trend BUN/Cr No indication for [employer] avoid NSAIDs, IV contrast Dose all meds for Cr Cl less then 25 #Acute on Chronic CHF continue Laisx Trend daily weights #Abd pain improved GI follow up #IDDM continue Insulin sliding scale Javed Douglass DO Problem List - Problems (1) Abdominal pain Code(s): R10.9 - UNSPECIFIED ABDOMINAL PAIN Qualifiers: Abdominal location: right upper quadrant Qualified Code(s): R10.11 - Right upper quadrant pain (2) Acute on chronic diastolic CHF (congestive heart failure) Code(s): I50.33 - ACUTE ON CHRONIC DIASTOLIC (CONGESTIVE) HEART FAILURE (3) Atrial fibrillation Code(s): I48.91 - UNSPECIFIED ATRIAL FIBRILLATION Qualifiers: Atrial fibrillation type: unspecified Qualified Code(s): I48.91 - Unspecified atrial fibrillation (4) CKD stage 3 due to type 2 diabetes mellitus Code(s): E11.22 - TYPE 2 DIABETES MELLITUS W DIABETIC CHRONIC KIDNEY DISEASE N18.3 - CHRONIC KIDNEY DISEASE, STAGE 3 (MODERATE) (5) Edema extremities Code(s): R60.0 - LOCALIZED EDEMA
[2016-12-10] MEDS: METOPROLOL TARTRATE 50 MG TABLET (FP) PO SCH ×2 (10:24→22:07)
[2016-12-10] MEDS: FUROSEMIDE 40 MG TABLET (FP) PO SCH (10:24)
[2016-12-10] MEDS: CEFTRIAXONE 1 GM in DEXTROSE 5%-WATER - 50 ML IVPB SCH (10:25)
[2016-12-10] MEDS: INSULIN (NOVOLOG MIX 70/30) 100 UNITS/ML MDV SQ SCH (10:25)
[2016-12-10] MEDS: PANTOPRAZOLE 20 MG TABLET (FP) PO SCH (10:25)
[2016-12-10] MEDS: PANTOPRAZOLE SODIUM 40 MG in SODIUM CHLORIDE 100 ML IVPB SCH ×2 (10:25→22:07)
[2016-12-10] MEDS: HEPARIN INFUSION - 500 ML IVPB SCH ×3 (10:26→22:43)
[2016-12-10] MEDS ORDERED: cefTRIAXone SODIUM 1 GM VIAL ONE (10:31)
[2016-12-10] MEDS ORDERED: DEXTROSE 5%-WATER - 50 ML IVPB ONE (10:31)
--- NOTE | 2016-12-10 13:49 | PN ---
Progress Note, Physician Chief Complaint: No C/o Pain nausea improved History of Present Illness: 71 yrs old morbidly obese F with multiple Co Morbidities admitted with Rt UQ abd pain with nausea and vomiting elevated TB and Alk Phosphate , probably due to Congestive Hepatopathy , evaluated by GI recommended MRCP for hepatobilliary evaluation, also decompensated dHF, Pulmonary HTN, Hypothyroidism, CKD stage 3 worsening renal functions, T2DM, Dyslipedemia , HTN , Hypothyroidism, Chronic Afib on AC. - Current Medication List Current Medications: Active Medications Atorvastatin Calcium (Lipitor -) 20 mg PO HS [facility] Last Admin: 12/09/16 21:25 Dose: 20 mg Diphenhydramine HCl (Benadryl -) 25 mg PO Q8H PRN PRN Reason: ITCHINESS Last Admin: 12/10/16 00:51 Dose: 25 mg Fluticasone Propionate (Flonase -) 1 spray NS BID PRN PRN Reason: RHINITIS Furosemide (Lasix -) 80 mg PO DAILY [facility] Last Admin: 12/10/16 10:24 Dose: 80 mg Heparin Sodium (Porcine) (Heparin -) 1,000 unit IVPUSH PRN PRN PRN Reason: Heparin Heparin Sodium (Porcine) (Heparin -) 5,000 unit IVPUSH PRN PRN PRN Reason: Heparin Pantoprazole Sodium 40 mg/ (Sodium Chloride) 100 mls @ 200 mls/hr IVPB BID [facility] Last Admin: 12/10/16 10:25 Dose: 200 mls/hr Ceftriaxone Sodium 1 gm/ (Dextrose) 50 mls @ 100 mls/hr IVPB DAILY [facility] Last Admin: 12/10/16 10:25 Dose: 100 mls/hr Heparin Sodium/Dextrose (Heparin Infusion -) 500 mls @ 20 mls/hr IVPB TITR [facility] ; 1,000 UNITS/HR PRN Reason: Protocol Last Admin: 12/10/16 10:26 Dose: 20 mls/hr Insulin Aspart (Novolog Vial Sliding Scale -) 1 vial SQ TIDAC [facility] PRN Reason: Protocol Last Admin: 12/10/16 06:57 Dose: Not Given Insulin Aspart (Novolog Mix 70/30 Vial) 15 units SQ DAILY [facility] Last Admin: 12/10/16 10:25 Dose: Not Given Metoprolol Tartrate (Lopressor -) 50 mg PO BID [facility] Last Admin: 12/10/16 10:24 Dose: 50 mg Pantoprazole Sodium (Protonix -) 20 mg PO DAILY [facility] Last Admin: 12/10/16 10:25 Dose: Not Given - Objective Vital Signs: Vital Signs Temperature 98.1 F 12/10/16 06:00 Pulse Rate 97 H 12/10/16 06:00 Respiratory Rate 19 12/10/16 06:00 Blood Pressure 109/57 12/10/16 06:00 O2 Sat by Pulse Oximetry (%) 97 12/09/16 21:00 Labs: CBC, BMP 12/10/16 06:00 12/10/16 06:00 INR, PTT INR 1.37 (0.82-1.09) H 12/09/16 09:35 Problem List - Problems (1) Abdominal pain Assessment/Plan: Abd pain of unknown etiology, GI input appreciated will keep patient NPO except meds, IV PPI, Reglna PRN, F/U MRCP and LFTs, possibility CBD retained stone or congestive Hepatopathy due to Rt sided HF. Code(s): R10.9 - UNSPECIFIED ABDOMINAL PAIN Qualifiers: Abdominal location: right upper quadrant Qualified Code(s): R10.11 - Right upper quadrant pain (2) Acute on chronic diastolic CHF (congestive heart failure) Assessment/Plan: Ptresent with worsening LE swelling and elevated BNP cont Lasix F/U Renal recommondations IP/OP chart, Cardiology consult, Cont B Mervat. ACEI/ARbs are on Hold. Code(s): I50.33 - ACUTE ON CHRONIC DIASTOLIC (CONGESTIVE) HEART FAILURE (3) Atrial fibrillation Assessment/Plan: Rate controlled on Heparin GTT hold Coumadin Code(s): I48.91 - UNSPECIFIED ATRIAL FIBRILLATION Qualifiers: Atrial fibrillation type: unspecified Qualified Code(s): I48.91 - Unspecified atrial fibrillation (4) CKD stage 3 due to type 2 diabetes mellitus Code(s): E11.22 - TYPE 2 DIABETES MELLITUS W DIABETIC CHRONIC KIDNEY DISEASE N18.3 - CHRONIC KIDNEY DISEASE, STAGE 3 (MODERATE) (5) Pulmonary arterial hypertension Assessment/Plan: Patient has pulmonary HTN, most likely HILARIA and diastolic HF w, patient is schedule to F/U with Pulmonary HTN clinic at [facility]. Cont current management. Code(s): I27.2 - OTHER SECONDARY PULMONARY HYPERTENSION (6) Acute on chronic renal failure Assessment/Plan: Patient has base line CKD stage 3 present with wworsening renal function due to Cardio- renal syndrome ? no ARBS aor ACEI , CHf management, F/U Nephrology recommondation, Code(s): N17.9 - ACUTE KIDNEY FAILURE, UNSPECIFIED N18.9 - CHRONIC KIDNEY DISEASE, UNSPECIFIED Qualifiers: Chronic kidney disease stage: stage 3 (moderate) (7) UTI (urinary tract infection) Assessment/Plan: UA + for LE, WBC and Bacteria considering high avelino will treat for UTI pending U Culture Ceftriaxone 1 gm IVSS Daily F/U Culture. Culture -ve but collected after IV abx will cont abx for 5 days. Code(s): N39.0 - URINARY TRACT INFECTION, SITE NOT SPECIFIED (8) Hypothyroid Assessment/Plan: Cont Levothyroxine Code(s): E03.9 - HYPOTHYROIDISM, UNSPECIFIED (9) Ventral hernia Assessment/Plan: Chronic no obstruction. Code(s): K43.9 - VENTRAL HERNIA WITHOUT OBSTRUCTION OR GANGRENE Qualifiers: Obstruction and gangrene presence: without obstruction or gangrene Qualified Code(s): K43.9 - Ventral hernia without obstruction or gangrene (10) Obesity Assessment/Plan: BMI around 40 F/U as out patient with nutrition consult. Code(s): E66.9 - OBESITY, UNSPECIFIED Qualifiers: Obesity type: due to excess calories Body mass index: BMI 39.0-39.9
[2016-12-10 15:35] LABS: CHOLESTEROL 76 mg/dL (50-200)
[2016-12-10 18:16] LABS: INR 1.56 (0.82-1.09); PROTHROMBIN TIME (PATIENT) 17.3 SEC (9.98-11.88)
[2016-12-10] MEDS ORDERED: ONDANSETRON 4 MG/2 ML VIAL IVPB ONE (19:00)
[2016-12-10] MEDS: ATORVASTATIN CA 20 MG TABLET (FP) PO SCH (22:07)
[2016-12-11] MEDS ORDERED: morphine CARPU-JECT 2 MG/1 ML DISP.SYRIN IVPUSH ONE ×2 (02:32→05:00)
[2016-12-11] MEDS: diphenhydrAMINE HCL 25 MG CAPSULE (FP) PO PRN ×2 (02:51→23:43)
[2016-12-11] MEDS: INSULIN SLIDING SCALE (NOVOLOG) 1 VIAL SQ SCH ×3 (06:11→17:55)
--- NOTE | 2016-12-11 07:06 | PN ---
Progress Note, Physician History of Present Illness: seen and examined today in nad. pt states she did not sleep overnight due to insomnia. also states her abdomen and b/l LE's feel more swollen. - Current Medication List Current Medications: Active Medications Atorvastatin Calcium (Lipitor -) 20 mg PO HS [facility] Last Admin: 12/10/16 22:07 Dose: 20 mg Diphenhydramine HCl (Benadryl -) 25 mg PO Q8H PRN PRN Reason: ITCHINESS Last Admin: 12/11/16 02:51 Dose: 25 mg Fluticasone Propionate (Flonase -) 1 spray NS BID PRN PRN Reason: RHINITIS Furosemide (Lasix -) 80 mg PO DAILY [facility] Last Admin: 12/10/16 10:24 Dose: 80 mg Heparin Sodium (Porcine) (Heparin -) 1,000 unit IVPUSH PRN PRN PRN Reason: Heparin Heparin Sodium (Porcine) (Heparin -) 5,000 unit IVPUSH PRN PRN PRN Reason: Heparin Pantoprazole Sodium 40 mg/ (Sodium Chloride) 100 mls @ 200 mls/hr IVPB BID [facility] Last Admin: 12/10/16 22:07 Dose: 200 mls/hr Ceftriaxone Sodium 1 gm/ (Dextrose) 50 mls @ 100 mls/hr IVPB DAILY [facility] Last Admin: 12/10/16 10:25 Dose: 100 mls/hr Heparin Sodium/Dextrose (Heparin Infusion -) 500 mls @ 20 mls/hr IVPB TITR [facility] ; 1,000 UNITS/HR PRN Reason: Protocol Last Admin: 12/10/16 22:43 Dose: 16 mls/hr Insulin Aspart (Novolog Vial Sliding Scale -) 1 vial SQ TIDAC [facility] PRN Reason: Protocol Last Admin: 12/11/16 06:11 Dose: Not Given Insulin Aspart (Novolog Mix 70/30 Vial) 15 units SQ DAILY [facility] Last Admin: 12/10/16 10:25 Dose: Not Given Metoprolol Tartrate (Lopressor -) 50 mg PO BID [facility] Last Admin: 12/10/16 22:07 Dose: 50 mg Pantoprazole Sodium (Protonix -) 20 mg PO DAILY [facility] Last Admin: 12/10/16 10:25 Dose: Not Given - Objective Vital Signs: Vital Signs Temperature 97.3 F L 12/11/16 06:00 Pulse Rate 110 H 12/11/16 06:00 Respiratory Rate 20 12/11/16 06:00 Blood Pressure 106/67 12/11/16 06:00 O2 Sat by Pulse Oximetry (%) 100 12/10/16 21:00 Constitutional: Yes: No Distress, Calm Eyes: Yes: Conjunctiva Clear, EOM Intact, PERRL HENT: Yes: Atraumatic, Normocephalic Neck: Yes: Supple, Trachea Midline Cardiovascular: Yes: Pulse Irregular, Murmur, S1, S2. No: Regular Rate and Rhythm, Bradycardia, Tachycardia, Bruit, JVD, Gallop, Rub, S3, S4, Varicosities Respiratory: Yes: Regular, CTA Bilaterally. No: Rales, Rhonchi, Wheezes Gastrointestinal: Yes: Normal Bowel Sounds, Distention. No: Tenderness Musculoskeletal: Yes: Muscle Weakness Extremities: Yes: WNL Edema: Yes Edema: LLE: 2+, RLE: 2+ Peripheral Pulses WNL: Yes Peripheral Pulses: Left Doralis Pedis: 2+, Right Dorsalis Pedis: 2+ Neurological: Yes: Alert, Oriented Psychiatric: Yes: Alert, Oriented Labs: CBC, BMP 12/10/16 06:00 12/10/16 06:00 INR, PTT INR 1.56 (0.82-1.09) H 12/10/16 18:13 - ....Imaging Chest X-ray: Report Reviewed, Image Reviewed EKG: Report Reviewed, Image Reviewed Other: Report Reviewed, Image Reviewed Assessment/Plan 71 year old woman with a history of Afib on coumadin, chronic diastolic chf, severe pulm HTN, HTN, DMII, HLD, CKD, h/o cholecystectomy a/w abdominal pain and nausea. Abdominal pain/Nausea-with ascites -GI work up in progress, planned for MRCP -possible contribution of R sided CHF with hepatic congestion -will change po Lasix to 40mg IV BID and monitor for improvement Afib-presumed chronic -HR is overall adequately controlled (at times HR elevated), cont metoprolol at current dose for now -INR subtherapeutic on admission -cont heparin gtt without coumadin for now until decision made if invasive work up/treatment is needed -cont tele for now as pt has had occasional episodes of RVR Acute on chronic Right sided and diastolic CHF -abdominal ascites and LE edema slightly more significant than yesterday -no sig pulm edema on exam thus making R sided CHF more likely culprit -will give trial of IV lasix 40mg BID, if no sig change would uptitrate dose as needed -monitor I/Os, daily weight, bun/creat, electrolytes -as per Dr. Winter [facility] stress Mibi when stable -echo 11/30/16 showed Normal LV systolic function, mild to mod red RV function, mild MR, severe Pulm HTN HTN-well controlled, low normal BP -cont current medical regimen for now Pulm HTN-mod to severe -last echo showed Normal LV systolic function, mild to mod red RV function, mild MR, severe Pulm HTN -presumed HILARIA -plan was for outpatient pulmonary and CHF/pulm HTN evaluation at [facility]
[2016-12-11] MEDS ORDERED: cefTRIAXone SODIUM 1 GM VIAL ONE (08:05)
[2016-12-11] MEDS ORDERED: DEXTROSE 5%-WATER - 50 ML IVPB ONE (08:05)
[2016-12-11 08:06] LABS: BASOPHIL 1.4 % (0-2.0); EOSINOPHIL 0.9 % (0-4.5); MCH 22.4 pg (25.7-33.7); MEAN CELL VOLUME 72.4 fl (80-96); MEAN PLT VOLUME 8.7 fl (7.5-11.1); NEUTROPHILS 54.6 % (42.8-82.8); PLATELET COUNT 340 K/MM3 (134-434); RDW 21.6 % (11.6-15.6); WHITE BLOOD COUNT 6.5 K/mm3 (4.0-10.0)
[2016-12-11] MEDS ORDERED: FUROSEMIDE 40 MG/4 ML INJECTABLE VIAL ONE (08:07)
[2016-12-11] MEDS ORDERED: PANTOPRAZOLE SODIUM 40 MG VIAL ONE (08:07)
[2016-12-11] MEDS ORDERED: SODIUM CHLORIDE 100 ML IVPB ONE (08:07)
[2016-12-11 08:29] LABS: URINE APPEARANCE CLEAR; URINE BILIRUBIN NEGATIVE (NEGATIVE); URINE BLOOD 1+ (NEGATIVE); URINE COLOR YELLOW; URINE GLUCOSE (UA) NEGATIVE (NEGATIVE); URINE KETONE NEGATIVE (NEGATIVE); URINE NITRITE NEGATIVE (NEGATIVE); URINE PROTEIN NEGATIVE (NEGATIVE); URINE UROBILINOGEN NEGATIVE mg/dL (0.2-1.0)
[2016-12-11 08:31] LABS: URINE LEUK ESTERASE 1+ (NEGATIVE)
[2016-12-11 08:38] LABS: URINE BACTERIA RARE /hpf (NONE SEEN); URINE HYALINE CAST 38 /lpf; URINE MUCUS RARE; URINE RBC 1 /hpf (0-3); URINE WBC 5 /hpf (3-5)
[2016-12-11 08:41] LABS: ALBUMIN 2.8 g/dl (3.4-5.0); ANION GAP 12 (8-16); CALCIUM 8.4 mg/dL (8.5-10.1); CO2 24 mmol/L (21-32); CREATININE 2.5 mg/dL (0.55-1.02); GLUCOSE,RANDOM 152 mg/dL (74-106); MAGNESIUM 2.5 mg/dL (1.8-2.4); PHOSPHOROUS 2.9 mg/dL (2.5-4.9); SGOT/AST 27 U/L (15-37); SGPT/ALT 21 U/L (12-78)
[2016-12-11 08:44] LABS: ALK PHOS 208 U/L (45-117); BILIRUBIN,TOTAL 1.9 mg/dL (0.2-1.0); TOT PROT 6.5 g/dl (6.4-8.2)
[2016-12-11] MEDS: PANTOPRAZOLE 20 MG TABLET (FP) PO SCH (09:13)
[2016-12-11] MEDS: METOPROLOL TARTRATE 50 MG TABLET (FP) PO SCH ×2 (09:13→22:11)
[2016-12-11] MEDS: FUROSEMIDE 40 MG/4 ML INJECTABLE VIAL IVPUSH SCH ×3 (09:14→17:55)
--- NOTE | 2016-12-11 09:51 | EKG ---
Test Reason : Blood Pressure : / mmHG Vent. Rate : 101 BPM Atrial Rate : 100 BPM P-R Int : 000 ms QRS Dur : 080 ms QT Int : 298 ms P-R-T Axes : 000 091 155 degrees QTc Int : 386 ms ATRIAL FIBRILLATION WITH RAPID VENTRICULAR RESPONSE RIGHTWARD AXIS LOW VOLTAGE QRS CANNOT RULE OUT SEPTAL INFARCT , AGE UNDETERMINED NONSPECIFIC ST ABNORMALITY ABNORMAL ECG Confirmed by MD RIZWAN, NADIA ([id number]) on 12/11/2016 9:50:35 AM Referred By: LUCIA BOSTON Confirmed By:NADIA ASTORGA MD
[2016-12-11] MEDS: HEPARIN INFUSION - 500 ML IVPB SCH (10:00)
[2016-12-11] MEDS: PANTOPRAZOLE SODIUM 40 MG in SODIUM CHLORIDE 100 ML IVPB SCH ×2 (11:39→22:12)
[2016-12-11] MEDS: CEFTRIAXONE 1 GM in DEXTROSE 5%-WATER - 50 ML IVPB SCH (11:39)
[2016-12-11] MEDS: INSULIN (NOVOLOG MIX 70/30) 100 UNITS/ML MDV SQ SCH (11:39)
--- NOTE | 2016-12-11 12:41 | PN ---
Progress Note, Physician Chief Complaint: C/O Insomnia last night, No C/o Pain ,nausea improved, c/o hemmorhoidal bleeding. History of Present Illness: 71 yrs old morbidly obese F with multiple Co Morbidities admitted with Rt UQ abd pain with nausea and vomiting elevated TB and Alk Phosphate , probably due to Congestive Hepatopathy , evaluated by GI recommended MRCP for hepatobilliary evaluation, also decompensated dHF, Pulmonary HTN, Hypothyroidism, CKD stage 3 worsening renal functions, T2DM, Dyslipedemia , HTN , Hypothyroidism, Chronic Afib on AC. - Current Medication List Current Medications: Active Medications Atorvastatin Calcium (Lipitor -) 20 mg PO HS [facility] Last Admin: 12/10/16 22:07 Dose: 20 mg Diphenhydramine HCl (Benadryl -) 25 mg PO Q8H PRN PRN Reason: ITCHINESS Last Admin: 12/11/16 02:51 Dose: 25 mg Fluticasone Propionate (Flonase -) 1 spray NS BID PRN PRN Reason: RHINITIS Furosemide (Lasix Injection -) 40 mg IVPUSH BID@0600,1400 [facility] Last Admin: 12/11/16 09:14 Dose: 40 mg Heparin Sodium (Porcine) (Heparin -) 1,000 unit IVPUSH PRN PRN PRN Reason: Heparin Heparin Sodium (Porcine) (Heparin -) 5,000 unit IVPUSH PRN PRN PRN Reason: Heparin Pantoprazole Sodium 40 mg/ (Sodium Chloride) 100 mls @ 200 mls/hr IVPB BID [facility] Last Admin: 12/11/16 11:39 Dose: 200 mls/hr Ceftriaxone Sodium 1 gm/ (Dextrose) 50 mls @ 100 mls/hr IVPB DAILY [facility] Last Admin: 12/11/16 11:39 Dose: 100 mls/hr Heparin Sodium/Dextrose (Heparin Infusion -) 500 mls @ 20 mls/hr IVPB TITR [facility] ; 1,000 UNITS/HR PRN Reason: Protocol Last Admin: 12/11/16 10:00 Dose: 13 mls/hr Insulin Aspart (Novolog Vial Sliding Scale -) 1 vial SQ TIDAC [facility] PRN Reason: Protocol Last Admin: 12/11/16 11:39 Dose: Not Given Insulin Aspart (Novolog Mix 70/30 Vial) 15 units SQ DAILY [facility] Last Admin: 12/11/16 11:39 Dose: Not Given Metoprolol Tartrate (Lopressor -) 50 mg PO BID [facility] Last Admin: 12/11/16 09:13 Dose: 50 mg Pantoprazole Sodium (Protonix -) 20 mg PO DAILY [facility] Last Admin: 12/11/16 09:13 Dose: Not Given - Objective Vital Signs: Vital Signs Temperature 97.3 F L 12/11/16 06:00 Pulse Rate 110 H 12/11/16 06:00 Respiratory Rate 20 12/11/16 06:00 Blood Pressure 106/67 12/11/16 06:00 O2 Sat by Pulse Oximetry (%) 100 12/10/16 21:00 Elderly F sick looking c/o abd Pain HEENT: Moist, no anemia, PERRLA, EOMI NECK: JVD ++, normal range of movement CHEST: Basal decrease AE Basal Crepts CVS: S1S2 Irr Tachycardia SM TA ABD: Obese, distention, Hepatomegaly, Tend Rt UQ and Epigastriun, no rebound BS + EXT: ++ Kavin afeet Let LE Healing blisters. STILL CLEANER: AOX3 non focal. Labs: CBC, BMP 12/11/16 06:00 12/11/16 06:00 INR, PTT INR 1.56 (0.82-1.09) H 12/10/16 18:13 Problem List - Problems (1) Abdominal pain Assessment/Plan: Abd pain of unknown etiology, GI input appreciated will keep patient NPO except meds, IV PPI, Reglna PRN, F/U MRCP and LFTs, possibility CBD retained stone or congestive Hepatopathy due to Rt sided HF. Code(s): R10.9 - UNSPECIFIED ABDOMINAL PAIN Qualifiers: Abdominal location: right upper quadrant Qualified Code(s): R10.11 - Right upper quadrant pain (2) Acute on chronic diastolic CHF (congestive heart failure) Assessment/Plan: Present with worsening LE swelling and elevated BNP cont Lasix F/U Renal recommendations IP/OP chart, Cardiology consult, Cont B Blockers. ACEI/ARbs are on Hold. Code(s): I50.33 - ACUTE ON CHRONIC DIASTOLIC (CONGESTIVE) HEART FAILURE (3) Atrial fibrillation Assessment/Plan: B Blockers for Rate control on Heparin GTT hold Coumadin Code(s): I48.91 - UNSPECIFIED ATRIAL FIBRILLATION Qualifiers: Atrial fibrillation type: unspecified Qualified Code(s): I48.91 - Unspecified atrial fibrillation (4) CKD stage 3 due to type 2 diabetes mellitus Assessment/Plan: F/U BMP and Renal recommendations. Code(s): E11.22 - TYPE 2 DIABETES MELLITUS W DIABETIC CHRONIC KIDNEY DISEASE N18.3 - CHRONIC KIDNEY DISEASE, STAGE 3 (MODERATE) (5) Pulmonary arterial hypertension Code(s): I27.2 - OTHER SECONDARY PULMONARY HYPERTENSION (6) Acute on chronic renal failure Assessment/Plan: Patient has base line CKD stage 3 present with worsening renal function due to Cardio- renal syndrome ? no ARBS aor ACEI , CHf management, F/U Nephrology recommendation, Code(s): N17.9 - ACUTE KIDNEY FAILURE, UNSPECIFIED N18.9 - CHRONIC KIDNEY DISEASE, UNSPECIFIED Qualifiers: Chronic kidney disease stage: stage 3 (moderate) (7) UTI (urinary tract infection) Assessment/Plan: UA + for LE, WBC and Bacteria considering high avelino will treat for UTI pending U Culture Ceftriaxone 1 gm IVSS Daily F/U Culture. Culture -ve but collected after IV abx will cont abx for 5 days. Code(s): N39.0 - URINARY TRACT INFECTION, SITE NOT SPECIFIED (8) Hypothyroid Assessment/Plan: Cont Levothyroxine Code(s): E03.9 - HYPOTHYROIDISM, UNSPECIFIED (9) Ventral hernia Assessment/Plan: Chronic no obstruction. Code(s): K43.9 - VENTRAL HERNIA WITHOUT OBSTRUCTION OR GANGRENE Qualifiers: Obstruction and gangrene presence: without obstruction or gangrene Qualified Code(s): K43.9 - Ventral hernia without obstruction or gangrene (10) Obesity Assessment/Plan: BMI around 40 F/U as out patient with nutrition consult. Code(s): E66.9 - OBESITY, UNSPECIFIED Qualifiers: Obesity type: due to excess calories Body mass index: BMI 39.0-39.9 (11) Bleeding hemorrhoid Assessment/Plan: add anusol, Metamucil. Code(s): K64.9 - UNSPECIFIED HEMORRHOIDS
[2016-12-11] MEDS ORDERED: PT OWN MED DRAWER 7, Y5N ONE (13:50)
[2016-12-11] MEDS: ALPRAZolam 0.25 MG TABLET PO PRN ×2 (14:46→23:43)
[2016-12-11] MEDS: HYDROCORTISONE 2.5% TOPICAL CREAM 30 GM TUBE PR SCH (14:48)
[2016-12-11] MEDS: PSYLLIUM 5.85 GM PACKET PO SCH (14:48)
[2016-12-11] MEDS ORDERED: METOCLOPRAMIDE HCL INJECTION 10 MG/2 ML VIAL IVPB PRN (16:57)
[2016-12-11] MEDS: ATORVASTATIN CA 20 MG TABLET (FP) PO SCH (22:11)
[2016-12-12] MEDS: INSULIN SLIDING SCALE (NOVOLOG) 1 VIAL SQ SCH ×3 (06:07→17:56)
[2016-12-12] MEDS: LEVOTHYROXINE NA 25 MCG TABLET (FP) PO SCH (06:07)
[2016-12-12] MEDS: FUROSEMIDE 40 MG/4 ML INJECTABLE VIAL IVPUSH SCH ×2 (06:07→15:23)
[2016-12-12 07:12] LABS: MCH 22.5 pg (25.7-33.7); MCHC 31.4 g/dl (32.0-36.0); MEAN CELL VOLUME 71.5 fl (80-96); MEAN PLT VOLUME 8.5 fl (7.5-11.1); PLATELET COUNT 278 K/MM3 (134-434); RDW 20.8 % (11.6-15.6); WHITE BLOOD COUNT 4.8 K/mm3 (4.0-10.0)
[2016-12-12 07:33] LABS: ALBUMIN 2.6 g/dl (3.4-5.0); ANION GAP 11 (8-16); BILIRUBIN,TOTAL 1.3 mg/dL (0.2-1.0); CALCIUM 7.9 mg/dL (8.5-10.1); CO2 25 mmol/L (21-32); GLUCOSE,RANDOM 153 mg/dL (74-106); SGOT/AST 23 U/L (15-37); SGPT/ALT 16 U/L (12-78); TOT PROT 5.7 g/dl (6.4-8.2)
[2016-12-12 07:34] LABS: ALK PHOS 191 U/L (45-117)
[2016-12-12 09:13] LABS: BASOPHIL (MANUAL) 1 % (0-2.0); TOTAL CELLS COUNTED 100
[2016-12-12] MEDS ORDERED: POTASSIUM CHLORIDE TABS 20 MEQ TABLET.ER (FP) PO ONE (10:00)
--- NOTE | 2016-12-12 10:30 | PN ---
Teaching Attending Note Name of Resident: Nabor Saez ATTENDING PHYSICIAN STATEMENT I saw and evaluated the patient with Dr. Nika Saez on 12/09/16 and signed the consult note but omitted this note. I saw the patient alone today as Dr Saez has completed his GI elective. I reviewed the resident's note and discussed the case with the resident. I agree with the resident's findings and plan as documented on the 12/09/16 note. SUBJECTIVE: Today Karlene tells me that she is very depressed. She denies abdominal pain but tells me that she has perianal irritation and bleeding due to frequent bowel movements. She is still awaiting MRCP. She wants to eat more. No nausea today. OBJECTIVE: Alert, Lungs: decreased breath sounds at the bases Cor: Irregular, n; S1, S2 Abd: obese, BS normoactive, nontender Rectal: large external hemorrhoid. Mustard colored semisolid stool is guaiac negative ASSESSMENT AND PLAN: Hemorrhoidal bleeding aggravated by loose stool. Will screen for C diff and other pathogens but suspect this may be paradoxical diarrhea. Will advance diet Continue to believe that LFT abormalities reflect congestive hepatopathy Hopefully MRI will better define periumbilical air seen on CT
[2016-12-12] MEDS ORDERED: DEXTROSE 5%-WATER - 50 ML IVPB ONE (11:24)
[2016-12-12] MEDS ORDERED: cefTRIAXone SODIUM 1 GM VIAL ONE (11:24)
[2016-12-12] MEDS ORDERED: SODIUM CHLORIDE 100 ML IVPB ONE ×2 (11:25→21:33)
[2016-12-12] MEDS ORDERED: PANTOPRAZOLE SODIUM 40 MG VIAL ONE ×2 (11:25→21:33)
[2016-12-12] MEDS: PSYLLIUM 5.85 GM PACKET PO SCH (11:33)
[2016-12-12] MEDS: INSULIN (NOVOLOG MIX 70/30) 100 UNITS/ML MDV SQ SCH (11:33)
[2016-12-12] MEDS: HYDROCORTISONE 2.5% TOPICAL CREAM 30 GM TUBE PR SCH (11:34)
[2016-12-12] MEDS: METOPROLOL TARTRATE 50 MG TABLET (FP) PO SCH ×2 (11:34→21:39)
[2016-12-12] MEDS: CEFTRIAXONE 1 GM in DEXTROSE 5%-WATER - 50 ML IVPB SCH (11:35)
[2016-12-12] MEDS: PANTOPRAZOLE SODIUM 40 MG in SODIUM CHLORIDE 100 ML IVPB SCH ×2 (11:35→21:40)
[2016-12-12] MEDS: PANTOPRAZOLE 20 MG TABLET (FP) PO SCH (11:35)
--- NOTE | 2016-12-12 12:22 | PN ---
Progress Note, Physician History of Present Illness: 71yo woman w/ PmHx: Afib (Coumadin), CKD, diastolic CHF, severe pulmonary HTN, Cholecystectomy, HTN, IDDM, obesity, sedentary lifestyle; arthritis, who presents to ED c/o Acute onset Abdominal Pain that began on Monday after taking Lopressor, per son. Patient was seen at Dr. Norris's office by Dr. Betancur," and prescribed Xanax. Son states patient did not take her medications at all on Monday and Monday, with resolution of symptoms. Patient was recently taken off Xarelto and put on Warfarin. Son states mother woke up in good spirits today , and developed pain again after taking Lopressor. Associated Nausea and back pain. Patient denies CP, fever, rash, diff breathing, cough, congestion, dizziness, confusion, or any other complaints at this time. - Current Medication List Current Medications: Active Medications Alprazolam (Xanax -) 0.25 mg PO Q8H PRN PRN Reason: ANXIETY Last Admin: 12/11/16 23:43 Dose: 0.25 mg Atorvastatin Calcium (Lipitor -) 20 mg PO HS [facility] Last Admin: 12/11/16 22:11 Dose: 20 mg Diphenhydramine HCl (Benadryl -) 25 mg PO Q8H PRN PRN Reason: ITCHINESS Last Admin: 12/11/16 23:43 Dose: 25 mg Fluticasone Propionate (Flonase -) 1 spray NS BID PRN PRN Reason: RHINITIS Furosemide (Lasix Injection -) 40 mg IVPUSH BID@0600,1400 [facility] Last Admin: 12/12/16 06:07 Dose: 40 mg Heparin Sodium (Porcine) (Heparin -) 1,000 unit IVPUSH PRN PRN PRN Reason: Heparin Heparin Sodium (Porcine) (Heparin -) 5,000 unit IVPUSH PRN PRN PRN Reason: Heparin Hydrocortisone (Anusol 2.5% Hc Cream -) 1 applic [place] DAILY [facility] Last Admin: 12/12/16 11:34 Dose: 1 applic Pantoprazole Sodium 40 mg/ (Sodium Chloride) 100 mls @ 200 mls/hr IVPB BID [facility] Last Admin: 12/12/16 11:35 Dose: 200 mls/hr Ceftriaxone Sodium 1 gm/ (Dextrose) 50 mls @ 100 mls/hr IVPB DAILY [facility] Last Admin: 12/12/16 11:35 Dose: 100 mls/hr Heparin Sodium/Dextrose (Heparin Infusion -) 500 mls @ 20 mls/hr IVPB TITR [facility] ; 1,000 UNITS/HR PRN Reason: Protocol Last Titration: 12/11/16 19:23 Dose: 600 units/hr Insulin Aspart (Novolog Vial Sliding Scale -) 1 vial SQ TIDAC [facility] PRN Reason: Protocol Last Admin: 12/12/16 11:35 Dose: Not Given Insulin Aspart (Novolog Mix 70/30 Vial) 15 units SQ DAILY [facility] Last Admin: 12/12/16 11:33 Dose: 15 units Levothyroxine Sodium (Synthroid -) 25 mcg PO DAILY@0700 [facility] Last Admin: 12/12/16 06:07 Dose: Not Given Metoclopramide HCl (Reglan Injection -) 5 mg IVPB Q6H PRN PRN Reason: NAUSEA AND/OR VOMITING Metoprolol Tartrate (Lopressor -) 50 mg PO BID [facility] Last Admin: 12/12/16 11:34 Dose: 50 mg Pantoprazole Sodium (Protonix -) 20 mg PO DAILY [facility] Last Admin: 12/12/16 11:35 Dose: Not Given Psyllium Hydrophilic Mucilloid (Metamucil (Sugar-Free) -) 5.85 gm PO DAILY [facility] Last Admin: 12/12/16 11:33 Dose: Not Given - Objective Vital Signs: Vital Signs Temperature 97.6 F 12/12/16 06:00 Pulse Rate 89 12/12/16 06:00 Respiratory Rate 22 12/12/16 06:00 Blood Pressure 117/64 12/12/16 06:00 O2 Sat by Pulse Oximetry (%) 98 12/11/16 21:00 Eyes: Yes: WNL, Conjunctiva Clear, EOM Intact HENT: Yes: WNL, Atraumatic, Normocephalic Neck: Yes: WNL, Supple, Trachea Midline Cardiovascular: Yes: Pulse Irregular, S1, S2 Respiratory: Yes: WNL, Regular, CTA Bilaterally Gastrointestinal: Yes: WNL, Normal Bowel Sounds Genitourinary: Yes: WNL Musculoskeletal: Yes: WNL Extremities: Yes: WNL Edema: Yes Integumentary: Yes: WNL Neurological: Yes: WNL, Alert, Oriented ...Motor Strength: WNL Psychiatric: Yes: WNL Labs: CBC, BMP 12/12/16 05:35 12/12/16 05:35 INR, PTT INR 1.56 (0.82-1.09) H 12/10/16 18:13 Assessment/Plan 71 year old woman with a history of Afib on coumadin, chronic diastolic chf, severe pulm HTN, HTN, DMII, HLD, CKD, h/o cholecystectomy a/w abdominal pain and nausea. Abdominal pain/Nausea-with ascites -GI work up in progress, planned for MRCP -possible contribution of R sided CHF with hepatic congestion -cont Lasix to 40mg IV BID and monitor for improvement Afib-presumed chronic -HR is overall adequately controlled (at times HR elevated), cont metoprolol at current dose for now -INR subtherapeutic on admission -cont heparin gtt without coumadin for now until decision made if invasive work up/treatment is needed -cont tele for now as pt has had occasional episodes of RVR Acute on chronic Right sided and diastolic CHF -abdominal ascites and LE edema slightly more significant than yesterday -no sig pulm edema on exam thus making R sided CHF more likely culprit -will give trial of IV lasix 40mg BID, if no sig change would uptitrate dose as needed -monitor I/Os, daily weight, bun/creat, electrolytes -as per Dr. Winter [facility] stress Mibi when stable -echo 11/30/16 showed Normal LV systolic function, mild to mod red RV function, mild MR, severe Pulm HTN HTN-well controlled, low normal BP -cont current medical regimen for now Pulm HTN-mod to severe -last echo showed Normal LV systolic function, mild to mod red RV function, mild MR, severe Pulm HTN -presumed HILARIA -plan was for outpatient pulmonary and CHF/pulm HTN evaluation at [facility]
--- NOTE | 2016-12-12 14:06 | PN ---
Progress Note (short form) - Note Progress Note: Renal Follow up for PERI on CKD Pt seen and examined at the bedside awake and alert, no acute complaints no Chest pain, N/V/D Vital Signs Temperature 97.6 F 12/12/16 06:00 Pulse Rate 89 12/12/16 06:00 Respiratory Rate 22 12/12/16 06:00 Blood Pressure 117/64 12/12/16 06:00 O2 Sat by Pulse Oximetry (%) 98 12/11/16 21:00 Intake & Output 12/09/16 12/10/16 12/11/16 12/12/16 23:59 23:59 23:59 23:59 Intake Total 340 350 205 Output Total 100 350 Balance 240 350 -145 Weight 232 lb Gen: NAD CVS: RRR Lungs: CTA abd: soft, obese, NT/ND Ext: No edema CBC, BMP 12/12/16 05:35 12/12/16 05:35 Current Medications Alprazolam (Xanax -) 0.25 mg PO Q8H PRN PRN Reason: ANXIETY Last Admin: 12/11/16 23:43 Dose: 0.25 mg Atorvastatin Calcium (Lipitor -) 20 mg PO HS [facility] Last Admin: 12/11/16 22:11 Dose: 20 mg Diphenhydramine HCl (Benadryl -) 25 mg PO Q8H PRN PRN Reason: ITCHINESS Last Admin: 12/11/16 23:43 Dose: 25 mg Fluticasone Propionate (Flonase -) 1 spray NS BID PRN PRN Reason: RHINITIS Furosemide (Lasix Injection -) 40 mg IVPUSH BID@0600,1400 [facility] Last Admin: 12/12/16 06:07 Dose: 40 mg Heparin Sodium (Porcine) (Heparin -) 1,000 unit IVPUSH PRN PRN PRN Reason: Heparin Heparin Sodium (Porcine) (Heparin -) 5,000 unit IVPUSH PRN PRN PRN Reason: Heparin Hydrocortisone (Anusol 2.5% Hc Cream -) 1 applic [place] DAILY [facility] Last Admin: 12/12/16 11:34 Dose: 1 applic Pantoprazole Sodium 40 mg/ (Sodium Chloride) 100 mls @ 200 mls/hr IVPB BID [facility] Last Admin: 12/12/16 11:35 Dose: 200 mls/hr Ceftriaxone Sodium 1 gm/ (Dextrose) 50 mls @ 100 mls/hr IVPB DAILY [facility] Last Admin: 12/12/16 11:35 Dose: 100 mls/hr Heparin Sodium/Dextrose (Heparin Infusion -) 500 mls @ 20 mls/hr IVPB TITR [facility] ; 1,000 UNITS/HR PRN Reason: Protocol Last Titration: 12/11/16 19:23 Dose: 600 units/hr Insulin Aspart (Novolog Vial Sliding Scale -) 1 vial SQ TIDAC [facility] PRN Reason: Protocol Last Admin: 12/12/16 11:35 Dose: Not Given Insulin Aspart (Novolog Mix 70/30 Vial) 15 units SQ DAILY [facility] Last Admin: 12/12/16 11:33 Dose: 15 units Levothyroxine Sodium (Synthroid -) 25 mcg PO DAILY@0700 [facility] Last Admin: 12/12/16 06:07 Dose: Not Given Metoclopramide HCl (Reglan Injection -) 5 mg IVPB Q6H PRN PRN Reason: NAUSEA AND/OR VOMITING Metoprolol Tartrate (Lopressor -) 50 mg PO BID [facility] Last Admin: 12/12/16 11:34 Dose: 50 mg Pantoprazole Sodium (Protonix -) 20 mg PO DAILY [facility] Last Admin: 12/12/16 11:35 Dose: Not Given Psyllium Hydrophilic Mucilloid (Metamucil (Sugar-Free) -) 5.85 gm PO DAILY [facility] Last Admin: 12/12/16 11:33 Dose: Not Given A/P 71 year old woman known to our service from prior admissions with PMhx of Afib, CHF, IDDM, CKD Stage 3 (baseline Cr 1.6-1.9) who presented with complaints of Abd pain and found to hae volume overload and BUN/Cr of 33/2.3. #PERI on CKD Stage 3 Renal function with noted improvement to baseline On IV Lasix as per cardiology, trend BUN/Cr and electrolytes avoid nephrotoxins such as NSAIDs, IV contrast not on ACEi or ARB and if warrented would start once on steady dose of oral diuretics #Acute on Chronic CHF continue Laisx Trend daily weights Javed Douglass DO Problem List - Problems (1) Abdominal pain Code(s): R10.9 - UNSPECIFIED ABDOMINAL PAIN Qualifiers: Abdominal location: right upper quadrant Qualified Code(s): R10.11 - Right upper quadrant pain (2) Acute on chronic diastolic CHF (congestive heart failure) Code(s): I50.33 - ACUTE ON CHRONIC DIASTOLIC (CONGESTIVE) HEART FAILURE (3) Atrial fibrillation Code(s): I48.91 - UNSPECIFIED ATRIAL FIBRILLATION Qualifiers: Atrial fibrillation type: unspecified Qualified Code(s): I48.91 - Unspecified atrial fibrillation (4) CKD stage 3 due to type 2 diabetes mellitus Code(s): E11.22 - TYPE 2 DIABETES MELLITUS W DIABETIC CHRONIC KIDNEY DISEASE N18.3 - CHRONIC KIDNEY DISEASE, STAGE 3 (MODERATE) (5) Edema extremities Code(s): R60.0 - LOCALIZED EDEMA
--- NOTE | 2016-12-12 18:11 | PN ---
Progress Note, Physician Chief Complaint: Feels better History of Present Illness: Admitted with CHF and pulmonery HTN - Current Medication List Current Medications: Active Medications Alprazolam (Xanax -) 0.25 mg PO Q8H PRN PRN Reason: ANXIETY Last Admin: 12/11/16 23:43 Dose: 0.25 mg Atorvastatin Calcium (Lipitor -) 20 mg PO HS [facility] Last Admin: 12/11/16 22:11 Dose: 20 mg Diphenhydramine HCl (Benadryl -) 25 mg PO Q8H PRN PRN Reason: ITCHINESS Last Admin: 12/11/16 23:43 Dose: 25 mg Fluticasone Propionate (Flonase -) 1 spray NS BID PRN PRN Reason: RHINITIS Furosemide (Lasix Injection -) 40 mg IVPUSH BID@0600,1400 [facility] Last Admin: 12/12/16 15:23 Dose: 40 mg Heparin Sodium (Porcine) (Heparin -) 1,000 unit IVPUSH PRN PRN PRN Reason: Heparin Heparin Sodium (Porcine) (Heparin -) 5,000 unit IVPUSH PRN PRN PRN Reason: Heparin Hydrocortisone (Anusol 2.5% Hc Cream -) 1 applic [place] DAILY [facility] Last Admin: 12/12/16 11:34 Dose: 1 applic Pantoprazole Sodium 40 mg/ (Sodium Chloride) 100 mls @ 200 mls/hr IVPB BID [facility] Last Admin: 12/12/16 11:35 Dose: 200 mls/hr Ceftriaxone Sodium 1 gm/ (Dextrose) 50 mls @ 100 mls/hr IVPB DAILY [facility] Last Admin: 12/12/16 11:35 Dose: 100 mls/hr Heparin Sodium/Dextrose (Heparin Infusion -) 500 mls @ 20 mls/hr IVPB TITR [facility] ; 1,000 UNITS/HR PRN Reason: Protocol Last Titration: 12/11/16 19:23 Dose: 600 units/hr Insulin Aspart (Novolog Vial Sliding Scale -) 1 vial SQ TIDAC [facility] PRN Reason: Protocol Last Admin: 12/12/16 17:56 Dose: Not Given Insulin Aspart (Novolog Mix 70/30 Vial) 15 units SQ DAILY [facility] Last Admin: 12/12/16 11:33 Dose: 15 units Levothyroxine Sodium (Synthroid -) 25 mcg PO DAILY@0700 [facility] Last Admin: 12/12/16 06:07 Dose: Not Given Metoclopramide HCl (Reglan Injection -) 5 mg IVPB Q6H PRN PRN Reason: NAUSEA AND/OR VOMITING Metoprolol Tartrate (Lopressor -) 50 mg PO BID [facility] Last Admin: 12/12/16 11:34 Dose: 50 mg Psyllium Hydrophilic Mucilloid (Metamucil (Sugar-Free) -) 5.85 gm PO DAILY [facility] Last Admin: 12/12/16 11:33 Dose: Not Given - Objective Vital Signs: Vital Signs Temperature 98.2 F 12/12/16 14:07 Pulse Rate 94 H 12/12/16 15:26 Respiratory Rate 18 12/12/16 15:26 Blood Pressure 107/60 12/12/16 15:26 O2 Sat by Pulse Oximetry (%) 98 12/12/16 09:00 Constitutional: Yes: Mild Distress Eyes: Yes: WNL HENT: Yes: WNL Neck: Yes: WNL Cardiovascular: Yes: Regular Rate and Rhythm Respiratory: Yes: On Nasal O2 Gastrointestinal: Yes: Normal Bowel Sounds ...Rectal Exam: Yes: Deferred Genitourinary: Yes: WNL Edema: LLE: 1+, RLE: 1+ Neurological: Yes: Alert Labs: CBC, BMP 12/12/16 05:35 12/12/16 05:35 INR, PTT INR 1.56 (0.82-1.09) H 12/10/16 18:13 Assessment/Plan oob IN CHAIR [facility] supplliments
[2016-12-12] MEDS: HEPARIN INFUSION - 500 ML IVPB SCH (19:41)
[2016-12-12] MEDS ORDERED: ACETAMINOPHEN WITH CODEINE 300MG/30MG TABLET PO ONE (21:15)
[2016-12-12] MEDS: diphenhydrAMINE HCL 25 MG CAPSULE (FP) PO PRN (21:39)
[2016-12-12] MEDS: POTASSIUM CHLORIDE TABS 20 MEQ TABLET.ER (FP) PO SCH (21:39)
[2016-12-12] MEDS: ALPRAZolam 0.25 MG TABLET PO PRN (21:40)
[2016-12-12] MEDS: ATORVASTATIN CA 20 MG TABLET (FP) PO SCH (21:40)
[2016-12-13] MEDS: FUROSEMIDE 40 MG/4 ML INJECTABLE VIAL IVPUSH SCH ×2 (06:12→14:25)
[2016-12-13] MEDS: LEVOTHYROXINE NA 25 MCG TABLET (FP) PO SCH (06:56)
[2016-12-13] MEDS: INSULIN SLIDING SCALE (NOVOLOG) 1 VIAL SQ SCH ×3 (06:57→16:50)
[2016-12-13] MEDS: HEPARIN INFUSION - 500 ML IVPB SCH ×2 (07:55→10:52)
[2016-12-13 08:31] LABS: BASOPHIL 1.3 % (0-2.0); EOSINOPHIL 3.1 % (0-4.5); MCH 22.2 pg (25.7-33.7); MCHC 30.8 g/dl (32.0-36.0); MEAN CELL VOLUME 72.2 fl (80-96); MEAN PLT VOLUME 8.5 fl (7.5-11.1); NEUTROPHILS 51.4 % (42.8-82.8); PLATELET COUNT 302 K/MM3 (134-434); RDW 21.4 % (11.6-15.6); WHITE BLOOD COUNT 5.5 K/mm3 (4.0-10.0)
[2016-12-13 09:28] LABS: ANION GAP 13 (8-16); CALCIUM 8.4 mg/dL (8.5-10.1); CO2 23 mmol/L (21-32); CREATININE 2.2 mg/dL (0.55-1.02); GLUCOSE,RANDOM 130 mg/dL (74-106); MAGNESIUM 2.3 mg/dL (1.8-2.4); PHOSPHOROUS 3.3 mg/dL (2.5-4.9)
--- NOTE | 2016-12-13 09:36 | PN ---
Progress Note, Physician Chief Complaint: Feels the same History of Present Illness: MRI abdomen grossly unremarkable - Current Medication List Current Medications: Active Medications Alprazolam (Xanax -) 0.25 mg PO Q8H PRN PRN Reason: ANXIETY Last Admin: 12/12/16 21:40 Dose: 0.25 mg Atorvastatin Calcium (Lipitor -) 20 mg PO HS [facility] Last Admin: 12/12/16 21:40 Dose: 20 mg Diphenhydramine HCl (Benadryl -) 25 mg PO Q8H PRN PRN Reason: ITCHINESS Last Admin: 12/12/16 21:39 Dose: 25 mg Fluticasone Propionate (Flonase -) 1 spray NS BID PRN PRN Reason: RHINITIS Furosemide (Lasix Injection -) 40 mg IVPUSH BID@0600,1400 [facility] Last Admin: 12/13/16 06:12 Dose: 40 mg Heparin Sodium (Porcine) (Heparin -) 1,000 unit IVPUSH PRN PRN PRN Reason: Heparin Last Admin: 12/12/16 19:41 Dose: 1,000 unit Heparin Sodium (Porcine) (Heparin -) 5,000 unit IVPUSH PRN PRN PRN Reason: Heparin Hydrocortisone (Anusol 2.5% Hc Cream -) 1 applic [place] DAILY [facility] Last Admin: 12/12/16 11:34 Dose: 1 applic Pantoprazole Sodium 40 mg/ (Sodium Chloride) 100 mls @ 200 mls/hr IVPB BID [facility] Last Admin: 12/12/16 21:40 Dose: 200 mls/hr Ceftriaxone Sodium 1 gm/ (Dextrose) 50 mls @ 100 mls/hr IVPB DAILY [facility] Last Admin: 12/12/16 11:35 Dose: 100 mls/hr Heparin Sodium/Dextrose (Heparin Infusion -) 500 mls @ 20 mls/hr IVPB TITR [facility] ; 1,000 UNITS/HR PRN Reason: Protocol Last Admin: 12/12/16 19:41 Dose: 12 mls/hr Insulin Aspart (Novolog Vial Sliding Scale -) 1 vial SQ TIDAC [facility] PRN Reason: Protocol Last Admin: 12/13/16 06:57 Dose: 2 unit Insulin Aspart (Novolog Mix 70/30 Vial) 15 units SQ DAILY [facility] Last Admin: 12/12/16 11:33 Dose: 15 units Levothyroxine Sodium (Synthroid -) 25 mcg PO DAILY@0700 [facility] Last Admin: 12/13/16 06:56 Dose: 25 mcg Metoclopramide HCl (Reglan Injection -) 5 mg IVPB Q6H PRN PRN Reason: NAUSEA AND/OR VOMITING Metoprolol Tartrate (Lopressor -) 50 mg PO BID [facility] Last Admin: 12/12/16 21:39 Dose: 50 mg Potassium Chloride (K-Dur -) 20 meq PO BID [facility] Last Admin: 12/12/16 21:39 Dose: 20 meq Psyllium Hydrophilic Mucilloid (Metamucil (Sugar-Free) -) 5.85 gm PO DAILY [facility] Last Admin: 12/12/16 11:33 Dose: Not Given - Objective Vital Signs: Vital Signs Temperature 97.6 F 12/13/16 02:20 Pulse Rate 95 H 12/13/16 02:20 Respiratory Rate 18 12/13/16 02:20 Blood Pressure 94/59 12/13/16 02:20 O2 Sat by Pulse Oximetry (%) 94 L 12/12/16 21:00 Constitutional: Yes: Mild Distress Eyes: Yes: WNL HENT: Yes: WNL Neck: Yes: WNL Cardiovascular: Yes: Regular Rate and Rhythm Respiratory: Yes: On Nasal O2 Gastrointestinal: Yes: WNL Musculoskeletal: Yes: Muscle Weakness Edema: Yes Edema: LLE: 1+, RLE: 1+ Neurological: Yes: Alert Labs: CBC, BMP 12/13/16 07:00 INR, PTT INR 1.56 (0.82-1.09) H 12/10/16 18:13 Assessment/Plan Continue same trt
[2016-12-13] MEDS ORDERED: cefTRIAXone SODIUM 1 GM VIAL ONE (10:04)
[2016-12-13] MEDS ORDERED: DEXTROSE 5%-WATER - 50 ML IVPB ONE (10:04)
[2016-12-13] MEDS: CEFTRIAXONE 1 GM in DEXTROSE 5%-WATER - 50 ML IVPB SCH (10:19)
[2016-12-13] MEDS: METOPROLOL TARTRATE 50 MG TABLET (FP) PO SCH ×2 (10:23→21:52)
[2016-12-13] MEDS: INSULIN (NOVOLOG MIX 70/30) 100 UNITS/ML MDV SQ SCH (10:23)
[2016-12-13] MEDS: PSYLLIUM 5.85 GM PACKET PO SCH (10:23)
[2016-12-13] MEDS: POTASSIUM CHLORIDE TABS 20 MEQ TABLET.ER (FP) PO SCH ×2 (10:23→21:52)
[2016-12-13] MEDS: HYDROCORTISONE 2.5% TOPICAL CREAM 30 GM TUBE PR SCH (10:44)
[2016-12-13] MEDS ORDERED: INSULIN (NOVOLOG) ASPART 100 UNITS/ML 10ML VIAL ONE (10:46)
[2016-12-13] MEDS: PANTOPRAZOLE SODIUM 40 MG in SODIUM CHLORIDE 100 ML IVPB SCH ×2 (11:20→21:53)
--- NOTE | 2016-12-13 16:13 | PN ---
Progress Note, Physician Chief Complaint: Pt is A&Ox3; no chest pain or abdominal pain presently; dyspneic on mild exertion. She wants a solution to the continual fluid buildup ("I'm not drinking much water; why am I having so much water inside?"). History of Present Illness: 71yo white woman w/ PmHx: Afib (Coumadin), CKD, diastolic CHF, severe pulmonary HTN, Cholecystectomy, HTN, IDDM, obesity, sedentary lifestyle; arthritis, who presents to ED c/o Acute onset Abdominal Pain that began on Monday after taking Lopressor, per son. Patient was seen at Dr. Norris's office by Dr. Betancur," and prescribed Xanax. Son states patient did not take her medications at all on Monday and Monday, with resolution of symptoms. Patient was recently taken off Xarelto and put on Warfarin. Son states mother woke up in good spirits today, and developed pain again after taking Lopressor. Associated Nausea and back pain. Patient denies CP, fever, rash, diff breathing , cough, congestion, dizziness, confusion, or any other complaints at this time. PCP- Dr. Montiel - Current Medication List Current Medications: Active Medications Alprazolam (Xanax -) 0.25 mg PO Q8H PRN PRN Reason: ANXIETY Last Admin: 12/12/16 21:40 Dose: 0.25 mg Atorvastatin Calcium (Lipitor -) 20 mg PO HS [facility] Last Admin: 12/12/16 21:40 Dose: 20 mg Diphenhydramine HCl (Benadryl -) 25 mg PO Q8H PRN PRN Reason: ITCHINESS Last Admin: 12/12/16 21:39 Dose: 25 mg Fluticasone Propionate (Flonase -) 1 spray NS BID PRN PRN Reason: RHINITIS Furosemide (Lasix Injection -) 40 mg IVPUSH BID@0600,1400 [facility] Last Admin: 12/13/16 14:25 Dose: 40 mg Heparin Sodium (Porcine) (Heparin -) 1,000 unit IVPUSH PRN PRN PRN Reason: Heparin Last Admin: 12/12/16 19:41 Dose: 1,000 unit Heparin Sodium (Porcine) (Heparin -) 5,000 unit IVPUSH PRN PRN PRN Reason: Heparin Hydrocortisone (Anusol 2.5% Hc Cream -) 1 applic [place] DAILY [facility] Last Admin: 12/13/16 10:44 Dose: 1 applic Pantoprazole Sodium 40 mg/ (Sodium Chloride) 100 mls @ 200 mls/hr IVPB BID [facility] Last Admin: 12/13/16 11:20 Dose: 200 mls/hr Ceftriaxone Sodium 1 gm/ (Dextrose) 50 mls @ 100 mls/hr IVPB DAILY [facility] Last Admin: 12/13/16 10:19 Dose: 100 mls/hr Heparin Sodium/Dextrose (Heparin Infusion -) 500 mls @ 20 mls/hr IVPB TITR [facility] ; 1,000 UNITS/HR PRN Reason: Protocol Last Admin: 12/13/16 10:52 Dose: 11 mls/hr Insulin Aspart (Novolog Vial Sliding Scale -) 1 vial SQ TIDAC [facility] PRN Reason: Protocol Last Admin: 12/13/16 11:20 Dose: 2 unit Insulin Aspart (Novolog Mix 70/30 Vial) 15 units SQ DAILY [facility] Last Admin: 12/13/16 10:23 Dose: 15 units Levothyroxine Sodium (Synthroid -) 25 mcg PO DAILY@0700 [facility] Last Admin: 12/13/16 06:56 Dose: 25 mcg Metoclopramide HCl (Reglan Injection -) 5 mg IVPB Q6H PRN PRN Reason: NAUSEA AND/OR VOMITING Metoprolol Tartrate (Lopressor -) 50 mg PO BID [facility] Last Admin: 12/13/16 10:23 Dose: Not Given Potassium Chloride (K-Dur -) 20 meq PO BID [facility] Last Admin: 12/13/16 10:23 Dose: 20 meq Psyllium Hydrophilic Mucilloid (Metamucil (Sugar-Free) -) 5.85 gm PO DAILY [facility] Last Admin: 12/13/16 10:23 Dose: 5.85 gm - Objective Vital Signs: Vital Signs Temperature 97.2 F L 12/13/16 15:53 Pulse Rate 99 H 12/13/16 15:53 Respiratory Rate 18 12/13/16 15:53 Blood Pressure 102/61 12/13/16 15:53 O2 Sat by Pulse Oximetry (%) 94 L 12/12/16 21:00 Constitutional: Yes: Anxious Eyes: Yes: WNL HENT: Yes: WNL Neck: Yes: WNL Cardiovascular: Yes: Pulse Irregular Respiratory: Yes: Regular Gastrointestinal: Yes: Soft ...Rectal Exam: Yes: Deferred Genitourinary: No: Anuria Breast(s): Yes: WNL Musculoskeletal: Yes: Joint Swelling, Muscle Weakness Extremities: Yes: Cool Edema: Yes Edema: LLE: 1+, RLE: 1+ Peripheral Pulses WNL: No Peripheral Pulses: Left Doralis Pedis: 1+, Right Dorsalis Pedis: 1+ Integumentary: Yes: Venous Stasis Changes, Other (small purpuric macules (?IV sites)) Neurological: Yes: Alert, Oriented, Weakness Psychiatric: Yes: Alert, Oriented Labs: CBC, BMP 12/13/16 07:00 12/13/16 07:00 INR, PTT INR 1.56 (0.82-1.09) H 12/10/16 18:13 Problem List - Problems (1) Abdominal pain Assessment/Plan: ascites, anasarca (CT and MRI of abdomen). Code(s): R10.9 - UNSPECIFIED ABDOMINAL PAIN Qualifiers: Abdominal location: right upper quadrant Qualified Code(s): R10.11 - Right upper quadrant pain (2) Acute on chronic diastolic CHF (congestive heart failure) Assessment/Plan: Normal LVEF; reduced RVEF, with severe pulmonary HTN. No hx PE. on metoprolol and furosemide. F/u BUN/Cr, electrolytes, Is and Os, daily weight. TNI < 0.02 EKG: AF Stress MIBI when stable. For f/u with heart failure group as outpatient. Code(s): I50.33 - ACUTE ON CHRONIC DIASTOLIC (CONGESTIVE) HEART FAILURE (3) Atrial fibrillation Code(s): I48.91 - UNSPECIFIED ATRIAL FIBRILLATION Qualifiers: Atrial fibrillation type: unspecified Qualified Code(s): I48.91 - Unspecified atrial fibrillation (4) Anasarca Code(s): R60.1 - GENERALIZED EDEMA (5) Ventral hernia Code(s): K43.9 - VENTRAL HERNIA WITHOUT OBSTRUCTION OR GANGRENE Qualifiers: Obstruction and gangrene presence: without obstruction or gangrene Qualified Code(s): K43.9 - Ventral hernia without obstruction or gangrene (6) HTN (hypertension) Assessment/Plan: on metoprolol and furosemide. Code(s): I10 - ESSENTIAL (PRIMARY) HYPERTENSION (7) Moderate to severe pulmonary hypertension Assessment/Plan: normal LVEF; mild-moderately reduced RVEF; mild MR; severe pulmonary HTN. Denies hx PE. Obese Presumed sleep apnea. f/u with courier. Scheduled for heart failure/pulmonary HTN consult as outpatient at [facility]. Code(s): I27.2 - OTHER SECONDARY PULMONARY HYPERTENSION (8) Hypokalemia Assessment/Plan: likely secondary to vomiting, furosemide. Repleted K+; f/u all electrolytes. Code(s): E87.6 - HYPOKALEMIA (9) Obesity Assessment/Plan: obese; sedentary. f/u lipids. Code(s): E66.9 - OBESITY, UNSPECIFIED Qualifiers: Obesity type: due to excess calories Body mass index: BMI 39.0-39.9 (10) UTI (urinary tract infection) Assessment/Plan: on antibiotics. f/u cultures. Code(s): N39.0 - URINARY TRACT INFECTION, SITE NOT SPECIFIED (11) Renal dysfunction Assessment/Plan: ongoing workup with Dr. Douglass noted. Code(s): N28.9 - DISORDER OF KIDNEY AND URETER, UNSPECIFIED
--- NOTE | 2016-12-13 16:31 | PN ---
Progress Note (short form) - Note Progress Note: Renal Follow up for PERI on CKD Pt seen and examined at the bedside continues to have LE edema weights unchanged no sob, chest pain, abd pain, N/V/D Vital Signs Temperature 97.2 F L 12/13/16 15:53 Pulse Rate 99 H 12/13/16 15:53 Respiratory Rate 18 12/13/16 15:53 Blood Pressure 102/61 12/13/16 15:53 O2 Sat by Pulse Oximetry (%) 94 L 12/12/16 21:00 Intake & Output 12/10/16 12/11/16 12/12/16 12/13/16 23:59 23:59 23:59 23:59 Intake Total 350 205 394 Output Total 350 Balance 350 -145 394 Weight 130 lb 8 oz Gen: NAD CVS: RRR Lungs: CTA abd: soft, obese, NT/ND Ext: No edema CBC, BMP 12/13/16 07:00 12/13/16 07:00 Laboratory Tests 12/10/16 12/13/16 06:00 07:00 Calcium 8.5 8.4 L Phosphorus 3.5 D 3.3 Magnesium 2.4 2.3 Albumin 2.6 L Current Medications Alprazolam (Xanax -) 0.25 mg PO Q8H PRN PRN Reason: ANXIETY Last Admin: 12/12/16 21:40 Dose: 0.25 mg Atorvastatin Calcium (Lipitor -) 20 mg PO HS [facility] Last Admin: 12/12/16 21:40 Dose: 20 mg Diphenhydramine HCl (Benadryl -) 25 mg PO Q8H PRN PRN Reason: ITCHINESS Last Admin: 12/12/16 21:39 Dose: 25 mg Fluticasone Propionate (Flonase -) 1 spray NS BID PRN PRN Reason: RHINITIS Furosemide (Lasix Injection -) 40 mg IVPUSH BID@0600,1400 [facility] Last Admin: 12/13/16 14:25 Dose: 40 mg Heparin Sodium (Porcine) (Heparin -) 1,000 unit IVPUSH PRN PRN PRN Reason: Heparin Last Admin: 12/12/16 19:41 Dose: 1,000 unit Heparin Sodium (Porcine) (Heparin -) 5,000 unit IVPUSH PRN PRN PRN Reason: Heparin Hydrocortisone (Anusol 2.5% Hc Cream -) 1 applic [place] DAILY [facility] Last Admin: 12/13/16 10:44 Dose: 1 applic Pantoprazole Sodium 40 mg/ (Sodium Chloride) 100 mls @ 200 mls/hr IVPB BID [facility] Last Admin: 12/13/16 11:20 Dose: 200 mls/hr Ceftriaxone Sodium 1 gm/ (Dextrose) 50 mls @ 100 mls/hr IVPB DAILY [facility] Last Admin: 12/13/16 10:19 Dose: 100 mls/hr Heparin Sodium/Dextrose (Heparin Infusion -) 500 mls @ 20 mls/hr IVPB TITR [facility] ; 1,000 UNITS/HR PRN Reason: Protocol Last Admin: 12/13/16 10:52 Dose: 11 mls/hr Insulin Aspart (Novolog Vial Sliding Scale -) 1 vial SQ TIDAC [facility] PRN Reason: Protocol Last Admin: 12/13/16 11:20 Dose: 2 unit Insulin Aspart (Novolog Mix 70/30 Vial) 15 units SQ DAILY [facility] Last Admin: 12/13/16 10:23 Dose: 15 units Levothyroxine Sodium (Synthroid -) 25 mcg PO DAILY@0700 [facility] Last Admin: 12/13/16 06:56 Dose: 25 mcg Metoclopramide HCl (Reglan Injection -) 5 mg IVPB Q6H PRN PRN Reason: NAUSEA AND/OR VOMITING Metoprolol Tartrate (Lopressor -) 50 mg PO BID [facility] Last Admin: 12/13/16 10:23 Dose: Not Given Potassium Chloride (K-Dur -) 20 meq PO BID [facility] Last Admin: 12/13/16 10:23 Dose: 20 meq Psyllium Hydrophilic Mucilloid (Metamucil (Sugar-Free) -) 5.85 gm PO DAILY [facility] Last Admin: 12/13/16 10:23 Dose: 5.85 gm A/P 71 year old woman known to our service from prior admissions with PMhx of Afib, CHF, IDDM, CKD Stage 3 (baseline Cr 1.6-1.9) who presented with complaints of Abd pain and found to hae volume overload and BUN/Cr of 33/2.3. #PERI on CKD Stage 3 Cr 2 ->2.2, pt still with volume overlaod and marginal BP continue IV lasix BID Low salt diet, trend daily weights #Acute on Chronic CHF continue Laisx on Metoprolol BID (HR in 90s) Javed Alarconbony HAEYS Problem List - Problems (1) Abdominal pain Code(s): R10.9 - UNSPECIFIED ABDOMINAL PAIN Qualifiers: Abdominal location: right upper quadrant Qualified Code(s): R10.11 - Right upper quadrant pain (2) Acute on chronic diastolic CHF (congestive heart failure) Code(s): I50.33 - ACUTE ON CHRONIC DIASTOLIC (CONGESTIVE) HEART FAILURE (3) Atrial fibrillation Code(s): I48.91 - UNSPECIFIED ATRIAL FIBRILLATION Qualifiers: Atrial fibrillation type: unspecified Qualified Code(s): I48.91 - Unspecified atrial fibrillation (4) CKD stage 3 due to type 2 diabetes mellitus Code(s): E11.22 - TYPE 2 DIABETES MELLITUS W DIABETIC CHRONIC KIDNEY DISEASE N18.3 - CHRONIC KIDNEY DISEASE, STAGE 3 (MODERATE) (5) Edema extremities Code(s): R60.0 - LOCALIZED EDEMA
[2016-12-13] MEDS ORDERED: PT OWN MED DRAWER 7, Y5N ONE (17:46)
[2016-12-13] MEDS: ALPRAZolam 0.25 MG TABLET PO PRN ×2 (18:20→21:52)
--- NOTE | 2016-12-13 20:23 | PN ---
GI Progress Note Subjective: GI NOte: The MRI reveals no CBD stones or obstruction. It appears to be a postoperative dilatation. She is having formed stools but c/o having RUQ cramps and feeling constipated and gassy - Objective Vital Signs: Vital Signs Temperature 97.2 F L 12/13/16 15:53 Pulse Rate 99 H 12/13/16 15:53 Respiratory Rate 18 12/13/16 15:53 Blood Pressure 102/61 12/13/16 15:53 O2 Sat by Pulse Oximetry (%) 96 12/13/16 09:00 Constitutional: Anxious Gastrointestinal Inspection: Yes: Distention ...Auscultate: Yes: Hypoactive Bowel Sounds ...Palpate: Yes: Soft, Other (nontender) ...Percussion: Yes: Tympanitic Labs: CBC, BMP 12/13/16 07:00 12/13/16 07:00 INR, PTT INR 1.56 (0.82-1.09) H 12/10/16 18:13 Assessment/Plan LFT abnormalities are due to congestive hepatopathy. Her pain suggests fecal impaction so I will start Miralax. She is C diff negative.
[2016-12-13] MEDS: ACETAMINOPHEN WITH CODEINE 300MG/30MG TABLET PO PRN (20:25)
[2016-12-13] MEDS: POLYETHYLENE GLYCOL 3350 119 GM BTL PO SCH (21:52)
[2016-12-13] MEDS: diphenhydrAMINE HCL 25 MG CAPSULE (FP) PO PRN (21:52)
[2016-12-13] MEDS: ATORVASTATIN CA 20 MG TABLET (FP) PO SCH (21:52)
[2016-12-14] MEDS: INSULIN SLIDING SCALE (NOVOLOG) 1 VIAL SQ SCH ×3 (06:19→17:18)
[2016-12-14] MEDS: FUROSEMIDE 40 MG/4 ML INJECTABLE VIAL IVPUSH SCH ×2 (06:20→14:11)
[2016-12-14] MEDS: LEVOTHYROXINE NA 25 MCG TABLET (FP) PO SCH (06:20)
[2016-12-14 07:29] LABS: BASOPHIL 1.3 % (0-2.0); EOSINOPHIL 3.9 % (0-4.5); MCH 22.2 pg (25.7-33.7); MCHC 31.2 g/dl (32.0-36.0); MEAN CELL VOLUME 71.1 fl (80-96); MEAN PLT VOLUME 8.5 fl (7.5-11.1); NEUTROPHILS 52.6 % (42.8-82.8); PLATELET COUNT 310 K/MM3 (134-434); RDW 21.1 % (11.6-15.6)
[2016-12-14 07:52] LABS: ANION GAP 7 (8-16); CALCIUM 8.8 mg/dL (8.5-10.1); CO2 26 mmol/L (21-32); CREATININE 2.1 mg/dL (0.55-1.02); GLUCOSE,RANDOM 152 mg/dL (74-106); MAGNESIUM 2.2 mg/dL (1.8-2.4); PHOSPHOROUS 3.2 mg/dL (2.5-4.9)
[2016-12-14 08:28] LABS: ALBUMIN 2.7 g/dl (3.4-5.0); BILIRUBIN,DIRECT 0.6 mg/dL (0.0-0.2); SGOT/AST 25 U/L (15-37); SGPT/ALT 18 U/L (12-78)
[2016-12-14 08:32] LABS: ALK PHOS 226 U/L (45-117); TOT PROT 6.2 g/dl (6.4-8.2)
[2016-12-14] MEDS ORDERED: DEXTROSE 5%-WATER - 50 ML IVPB ONE (08:38)
[2016-12-14] MEDS ORDERED: cefTRIAXone SODIUM 1 GM VIAL ONE (08:38)
[2016-12-14] MEDS: CEFTRIAXONE 1 GM in DEXTROSE 5%-WATER - 50 ML IVPB SCH (09:27)
[2016-12-14] MEDS: PANTOPRAZOLE SODIUM 40 MG in SODIUM CHLORIDE 100 ML IVPB SCH ×2 (09:27→22:00)
[2016-12-14] MEDS: HYDROCORTISONE 2.5% TOPICAL CREAM 30 GM TUBE PR SCH (09:28)
[2016-12-14] MEDS: METOPROLOL TARTRATE 50 MG TABLET (FP) PO SCH ×2 (09:28→21:59)
[2016-12-14] MEDS: PSYLLIUM 5.85 GM PACKET PO SCH (09:28)
[2016-12-14] MEDS: POTASSIUM CHLORIDE TABS 20 MEQ TABLET.ER (FP) PO SCH ×2 (09:28→21:59)
[2016-12-14] MEDS: HEPARIN INFUSION - 500 ML IVPB SCH (09:29)
[2016-12-14] MEDS: INSULIN (NOVOLOG MIX 70/30) 100 UNITS/ML MDV SQ SCH (09:29)
[2016-12-14] MEDS: POLYETHYLENE GLYCOL 3350 119 GM BTL PO SCH ×2 (09:29→22:00)
--- NOTE | 2016-12-14 09:39 | PN ---
Progress Note, Physician Chief Complaint: Feels better Had abdominal pain last night History of Present Illness: kalli Chapman note noted ,no GB pathology for abdominal pain - Current Medication List Current Medications: Active Medications Acetaminophen/Codeine Phosphate (Tylenol # 3 -) 1 tab PO Q6H PRN PRN Reason: PAIN Last Admin: 12/13/16 20:25 Dose: 1 tab Alprazolam (Xanax -) 0.25 mg PO Q8H PRN PRN Reason: ANXIETY Last Admin: 12/13/16 21:52 Dose: 0.25 mg Atorvastatin Calcium (Lipitor -) 20 mg PO HS [facility] Last Admin: 12/13/16 21:52 Dose: 20 mg Diphenhydramine HCl (Benadryl -) 25 mg PO Q8H PRN PRN Reason: ITCHINESS Last Admin: 12/13/16 21:52 Dose: 25 mg Fluticasone Propionate (Flonase -) 1 spray NS BID PRN PRN Reason: RHINITIS Furosemide (Lasix Injection -) 40 mg IVPUSH BID@0600,1400 [facility] Last Admin: 12/14/16 06:20 Dose: 40 mg Heparin Sodium (Porcine) (Heparin -) 1,000 unit IVPUSH PRN PRN PRN Reason: Heparin Last Admin: 12/12/16 19:41 Dose: 1,000 unit Heparin Sodium (Porcine) (Heparin -) 5,000 unit IVPUSH PRN PRN PRN Reason: Heparin Hydrocortisone (Anusol 2.5% Hc Cream -) 1 applic [place] DAILY [facility] Last Admin: 12/13/16 10:44 Dose: 1 applic Pantoprazole Sodium 40 mg/ (Sodium Chloride) 100 mls @ 200 mls/hr IVPB BID [facility] Last Admin: 12/13/16 21:53 Dose: 200 mls/hr Ceftriaxone Sodium 1 gm/ (Dextrose) 50 mls @ 100 mls/hr IVPB DAILY [facility] Last Admin: 12/13/16 10:19 Dose: 100 mls/hr Heparin Sodium/Dextrose (Heparin Infusion -) 500 mls @ 20 mls/hr IVPB TITR [facility] ; 1,000 UNITS/HR PRN Reason: Protocol Last Admin: 12/13/16 07:55 Dose: 12 mls/hr Insulin Aspart (Novolog Vial Sliding Scale -) 1 vial SQ TIDAC [facility] PRN Reason: Protocol Last Admin: 12/14/16 06:19 Dose: Not Given Insulin Aspart (Novolog Mix 70/30 Vial) 15 units SQ DAILY [facility] Last Admin: 12/13/16 10:23 Dose: 15 units Levothyroxine Sodium (Synthroid -) 25 mcg PO DAILY@0700 [facility] Last Admin: 12/14/16 06:20 Dose: 25 mcg Metoclopramide HCl (Reglan Injection -) 5 mg IVPB Q6H PRN PRN Reason: NAUSEA AND/OR VOMITING Metoprolol Tartrate (Lopressor -) 50 mg PO BID [facility] Last Admin: 12/13/16 21:52 Dose: 50 mg Polyethylene Glycol (Miralax (For Daily Use) -) 17 gm PO BID [facility] Last Admin: 12/13/16 21:52 Dose: 17 mg Potassium Chloride (K-Dur -) 20 meq PO BID [facility] Last Admin: 12/13/16 21:52 Dose: 20 meq Psyllium Hydrophilic Mucilloid (Metamucil (Sugar-Free) -) 5.85 gm PO DAILY [facility] Last Admin: 12/13/16 10:23 Dose: 5.85 gm - Objective Vital Signs: Vital Signs Temperature 98 F 12/14/16 06:25 Pulse Rate 104 H 12/14/16 06:25 Respiratory Rate 20 12/14/16 06:25 Blood Pressure 108/68 12/14/16 06:25 O2 Sat by Pulse Oximetry (%) 96 12/13/16 21:00 Constitutional: Yes: No Distress Eyes: Yes: WNL HENT: Yes: WNL Neck: Yes: WNL Cardiovascular: Yes: WNL Respiratory: Yes: On Nasal O2 Gastrointestinal: Yes: Normal Bowel Sounds Genitourinary: Yes: WNL Breast(s): Yes: WNL Musculoskeletal: Yes: Muscle Weakness Edema: LLE: 1+, RLE: 1+ ...Motor Strength: WNL Psychiatric: Yes: WNL Labs: CBC, BMP 12/14/16 05:35 12/14/16 05:35 INR, PTT INR 1.56 (0.82-1.09) H 12/10/16 18:13 Assessment/Plan OOB walking Continue present meds
[2016-12-14 09:53] LABS: ANISOCYTOSIS 3+; HYPOCHROMIA 3+; MICROCYTOSIS 1+
--- NOTE | 2016-12-14 10:06 | PN ---
Progress Note, Physician History of Present Illness: 71yo woman w/ PmHx: Afib (Coumadin), CKD, diastolic CHF, severe pulmonary HTN, Cholecystectomy, HTN, IDDM, obesity, sedentary lifestyle; arthritis, who presents to ED c/o Acute onset Abdominal Pain that began on Monday after taking Lopressor, per son. Patient was seen at Dr. Norris's office by Dr. Betancur," and prescribed Xanax. Son states patient did not take her medications at all on Monday and Monday, with resolution of symptoms. Patient was recently taken off Xarelto and put on Warfarin. Son states mother woke up in good spirits today , and developed pain again after taking Lopressor. Associated Nausea and back pain. Patient denies CP, fever, rash, diff breathing, cough, congestion, dizziness, confusion, or any other complaints at this time. - Current Medication List Current Medications: Active Medications Acetaminophen/Codeine Phosphate (Tylenol # 3 -) 1 tab PO Q6H PRN PRN Reason: PAIN Last Admin: 12/13/16 20:25 Dose: 1 tab Alprazolam (Xanax -) 0.25 mg PO Q8H PRN PRN Reason: ANXIETY Last Admin: 12/13/16 21:52 Dose: 0.25 mg Atorvastatin Calcium (Lipitor -) 20 mg PO HS [facility] Last Admin: 12/13/16 21:52 Dose: 20 mg Diphenhydramine HCl (Benadryl -) 25 mg PO Q8H PRN PRN Reason: ITCHINESS Last Admin: 12/13/16 21:52 Dose: 25 mg Fluticasone Propionate (Flonase -) 1 spray NS BID PRN PRN Reason: RHINITIS Furosemide (Lasix Injection -) 40 mg IVPUSH BID@0600,1400 [facility] Last Admin: 12/14/16 06:20 Dose: 40 mg Heparin Sodium (Porcine) (Heparin -) 1,000 unit IVPUSH PRN PRN PRN Reason: Heparin Last Admin: 12/12/16 19:41 Dose: 1,000 unit Heparin Sodium (Porcine) (Heparin -) 5,000 unit IVPUSH PRN PRN PRN Reason: Heparin Hydrocortisone (Anusol 2.5% Hc Cream -) 1 applic [place] DAILY [facility] Last Admin: 12/14/16 09:28 Dose: 1 applic Pantoprazole Sodium 40 mg/ (Sodium Chloride) 100 mls @ 200 mls/hr IVPB BID [facility] Last Admin: 12/14/16 09:27 Dose: 200 mls/hr Ceftriaxone Sodium 1 gm/ (Dextrose) 50 mls @ 100 mls/hr IVPB DAILY [facility] Last Admin: 12/14/16 09:27 Dose: 100 mls/hr Heparin Sodium/Dextrose (Heparin Infusion -) 500 mls @ 20 mls/hr IVPB TITR [facility] ; 1,000 UNITS/HR PRN Reason: Protocol Last Admin: 12/14/16 09:29 Dose: 12 mls/hr Insulin Aspart (Novolog Vial Sliding Scale -) 1 vial SQ TIDAC [facility] PRN Reason: Protocol Last Admin: 12/14/16 06:19 Dose: Not Given Insulin Aspart (Novolog Mix 70/30 Vial) 15 units SQ DAILY [facility] Last Admin: 12/14/16 09:29 Dose: 15 units Levothyroxine Sodium (Synthroid -) 25 mcg PO DAILY@0700 [facility] Last Admin: 12/14/16 06:20 Dose: 25 mcg Metoclopramide HCl (Reglan Injection -) 5 mg IVPB Q6H PRN PRN Reason: NAUSEA AND/OR VOMITING Metoprolol Tartrate (Lopressor -) 50 mg PO BID [facility] Last Admin: 12/14/16 09:28 Dose: 50 mg Polyethylene Glycol (Miralax (For Daily Use) -) 17 gm PO BID [facility] Last Admin: 12/14/16 09:29 Dose: 17 mg Potassium Chloride (K-Dur -) 20 meq PO BID [facility] Last Admin: 12/14/16 09:28 Dose: 20 meq Psyllium Hydrophilic Mucilloid (Metamucil (Sugar-Free) -) 5.85 gm PO DAILY [facility] Last Admin: 12/14/16 09:28 Dose: 5.85 gm - Objective Vital Signs: Vital Signs Temperature 98 F 12/14/16 06:25 Pulse Rate 104 H 12/14/16 06:25 Respiratory Rate 20 12/14/16 06:25 Blood Pressure 108/68 12/14/16 06:25 O2 Sat by Pulse Oximetry (%) 96 12/13/16 21:00 Eyes: Yes: WNL, Conjunctiva Clear, EOM Intact HENT: Yes: WNL, Atraumatic, Normocephalic Neck: Yes: WNL, Supple, Trachea Midline Cardiovascular: Yes: WNL, Regular Rate and Rhythm Respiratory: Yes: WNL, Regular, CTA Bilaterally Gastrointestinal: Yes: WNL, Normal Bowel Sounds Genitourinary: Yes: WNL Musculoskeletal: Yes: WNL Extremities: Yes: WNL Edema: Yes Integumentary: Yes: WNL Neurological: Yes: WNL, Alert, Oriented ...Motor Strength: WNL Psychiatric: Yes: WNL Labs: CBC, BMP 12/14/16 05:35 12/14/16 05:35 INR, PTT INR 1.56 (0.82-1.09) H 12/10/16 18:13 Assessment/Plan (1) Abdominal pain Assessment/Plan: ascites, anasarca (CT and MRI of abdomen). Code(s): R10.9 - UNSPECIFIED ABDOMINAL PAIN Qualifiers: Abdominal location: right upper quadrant Qualified Code(s): R10.11 - Right upper quadrant pain (2) Acute on chronic diastolic CHF (congestive heart failure) Assessment/Plan: Normal LVEF; reduced RVEF, with severe pulmonary HTN. No hx PE. on metoprolol and furosemide. F/u BUN/Cr, electrolytes, Is and Os, daily weight. TNI < 0.02 EKG: AF Stress MIBI when stable. For f/u with heart failure group as outpatient. Code(s): I50.33 - ACUTE ON CHRONIC DIASTOLIC (CONGESTIVE) HEART FAILURE (3) Atrial fibrillation Code(s): I48.91 - UNSPECIFIED ATRIAL FIBRILLATION Qualifiers: Atrial fibrillation type: unspecified Qualified Code(s): I48.91 - Unspecified atrial fibrillation (4) Anasarca Code(s): R60.1 - GENERALIZED EDEMA (5) Ventral hernia Code(s): K43.9 - VENTRAL HERNIA WITHOUT OBSTRUCTION OR GANGRENE Qualifiers: Obstruction and gangrene presence: without obstruction or gangrene Qualified Code(s): K43.9 - Ventral hernia without obstruction or gangrene (6) HTN (hypertension) Assessment/Plan: on metoprolol and furosemide. Code(s): I10 - ESSENTIAL (PRIMARY) HYPERTENSION (7) Moderate to severe pulmonary hypertension Assessment/Plan: normal LVEF; mild-moderately reduced RVEF; mild MR; severe pulmonary HTN. Denies hx PE. Obese Presumed sleep apnea. f/u with commercial real estate attorney. Scheduled for heart failure/pulmonary HTN consult as outpatient at [facility]. Code(s): I27.2 - OTHER SECONDARY PULMONARY HYPERTENSION (8) Hypokalemia Assessment/Plan: likely secondary to vomiting, furosemide. Repleted K+; f/u all electrolytes. Code(s): E87.6 - HYPOKALEMIA (9) Obesity Assessment/Plan: obese; sedentary. f/u lipids. Code(s): E66.9 - OBESITY, UNSPECIFIED Qualifiers: Obesity type: due to excess calories Body mass index: BMI 39.0-39.9 (10) UTI (urinary tract infection) Assessment/Plan: on antibiotics. f/u cultures. Code(s): N39.0 - URINARY TRACT INFECTION, SITE NOT SPECIFIED (11) Renal dysfunction Assessment/Plan: ongoing workup with Dr. Rafat richmond. Code(s): N28.9 - DISORDER OF KIDNEY AND URETER, UNSPECIFIED
[2016-12-14] MEDS ORDERED: PT OWN MED DRAWER 7, Y5N ONE (11:37)
--- NOTE | 2016-12-14 12:35 | PN ---
Progress Note (short form) - Note Progress Note: Renal Follow up for PERI on CKD Pt seen and examined at the bedside awake and alert feel better today legs remain swollen weights unchanged good urine output Vital Signs Temperature 97.4 F L 12/14/16 09:00 Pulse Rate 96 H 12/14/16 09:00 Respiratory Rate 22 12/14/16 09:00 Blood Pressure 104/58 12/14/16 09:00 O2 Sat by Pulse Oximetry (%) 96 12/14/16 09:00 Intake & Output 12/11/16 12/12/16 12/13/16 12/14/16 23:59 23:59 23:59 23:59 Intake Total 205 1969 390 Output Total 350 Balance -145 1969 390 Weight 231 lb 231 lb 9.6 oz Gen: NAD CVS: RRR Lungs: CTA abd: soft, obese, NT/ND Ext: No edema CBC, BMP 12/14/16 05:35 12/14/16 05:35 Current Medications Acetaminophen/Codeine Phosphate (Tylenol # 3 -) 1 tab PO Q6H PRN PRN Reason: PAIN Last Admin: 12/13/16 20:25 Dose: 1 tab Alprazolam (Xanax -) 0.25 mg PO Q8H PRN PRN Reason: ANXIETY Last Admin: 12/13/16 21:52 Dose: 0.25 mg Atorvastatin Calcium (Lipitor -) 20 mg PO HS [facility] Last Admin: 12/13/16 21:52 Dose: 20 mg Diphenhydramine HCl (Benadryl -) 25 mg PO Q8H PRN PRN Reason: ITCHINESS Last Admin: 12/13/16 21:52 Dose: 25 mg Fluticasone Propionate (Flonase -) 1 spray NS BID PRN PRN Reason: RHINITIS Furosemide (Lasix Injection -) 40 mg IVPUSH BID@0600,1400 [facility] Last Admin: 12/14/16 06:20 Dose: 40 mg Heparin Sodium (Porcine) (Heparin -) 1,000 unit IVPUSH PRN PRN PRN Reason: Heparin Last Admin: 12/12/16 19:41 Dose: 1,000 unit Heparin Sodium (Porcine) (Heparin -) 5,000 unit IVPUSH PRN PRN PRN Reason: Heparin Hydrocortisone (Anusol 2.5% Hc Cream -) 1 applic [place] DAILY [facility] Last Admin: 12/14/16 09:28 Dose: 1 applic Pantoprazole Sodium 40 mg/ (Sodium Chloride) 100 mls @ 200 mls/hr IVPB BID [facility] Last Admin: 12/14/16 09:27 Dose: 200 mls/hr Ceftriaxone Sodium 1 gm/ (Dextrose) 50 mls @ 100 mls/hr IVPB DAILY [facility] Last Admin: 12/14/16 09:27 Dose: 100 mls/hr Heparin Sodium/Dextrose (Heparin Infusion -) 500 mls @ 20 mls/hr IVPB TITR [facility] ; 1,000 UNITS/HR PRN Reason: Protocol Last Admin: 12/14/16 09:29 Dose: 12 mls/hr Insulin Aspart (Novolog Vial Sliding Scale -) 1 vial SQ TIDAC [facility] PRN Reason: Protocol Last Admin: 12/14/16 12:06 Dose: 4 unit Insulin Aspart (Novolog Mix 70/30 Vial) 15 units SQ DAILY [facility] Last Admin: 12/14/16 09:29 Dose: 15 units Levothyroxine Sodium (Synthroid -) 25 mcg PO DAILY@0700 [facility] Last Admin: 12/14/16 06:20 Dose: 25 mcg Metoclopramide HCl (Reglan Injection -) 5 mg IVPB Q6H PRN PRN Reason: NAUSEA AND/OR VOMITING Metolazone (Zaroxolyn -) 5 mg PO ONCE ONE Stop: 12/14/16 13:31 Metoprolol Tartrate (Lopressor -) 50 mg PO BID [facility] Last Admin: 12/14/16 09:28 Dose: 50 mg Polyethylene Glycol (Miralax (For Daily Use) -) 17 gm PO BID [facility] Last Admin: 12/14/16 09:29 Dose: 17 mg Potassium Chloride (K-Dur -) 20 meq PO BID [facility] Last Admin: 12/14/16 09:28 Dose: 20 meq Psyllium Hydrophilic Mucilloid (Metamucil (Sugar-Free) -) 5.85 gm PO DAILY [facility] Last Admin: 12/14/16 09:28 Dose: 5.85 gm A/P 71 year old woman known to our service from prior admissions with PMhx of Afib, CHF, IDDM, CKD Stage 3 (baseline Cr 1.6-1.9) who presented with complaints of Abd pain and found to hae volume overload and BUN/Cr of 33/2.3. #PERI on CKD Stage 3 with volume overload Renal function improved and stable however pt without improvement in volume status continue Lasix 40mg IV BID, add metolazone 5mg PO x 1 today Trend daily weights and renal function low salt diet Javed Douglass DO Problem List - Problems (1) Abdominal pain Code(s): R10.9 - UNSPECIFIED ABDOMINAL PAIN Qualifiers: Abdominal location: right upper quadrant Qualified Code(s): R10.11 - Right upper quadrant pain (2) Acute on chronic diastolic CHF (congestive heart failure) Code(s): I50.33 - ACUTE ON CHRONIC DIASTOLIC (CONGESTIVE) HEART FAILURE (3) Atrial fibrillation Code(s): I48.91 - UNSPECIFIED ATRIAL FIBRILLATION Qualifiers: Atrial fibrillation type: unspecified Qualified Code(s): I48.91 - Unspecified atrial fibrillation (4) CKD stage 3 due to type 2 diabetes mellitus Code(s): E11.22 - TYPE 2 DIABETES MELLITUS W DIABETIC CHRONIC KIDNEY DISEASE N18.3 - CHRONIC KIDNEY DISEASE, STAGE 3 (MODERATE) (5) Edema extremities Code(s): R60.0 - LOCALIZED EDEMA
[2016-12-14] MEDS ORDERED: METOLAZONE 5 MG TABLET PO ONE (13:30)
[2016-12-14] MEDS: ACETAMINOPHEN WITH CODEINE 300MG/30MG TABLET PO PRN (19:04)
[2016-12-14] MEDS: ATORVASTATIN CA 20 MG TABLET (FP) PO SCH (21:59)
[2016-12-14] MEDS: diphenhydrAMINE HCL 25 MG CAPSULE (FP) PO PRN (22:11)
[2016-12-15] MEDS: ACETAMINOPHEN WITH CODEINE 300MG/30MG TABLET PO PRN ×2 (00:30→23:43)
[2016-12-15] MEDS: ALPRAZolam 0.25 MG TABLET PO PRN ×2 (00:30→21:45)
[2016-12-15 06:06] LABS: HEP B SURFACE AB Non Reactive (.)
[2016-12-15] MEDS: INSULIN SLIDING SCALE (NOVOLOG) 1 VIAL SQ SCH ×3 (06:52→18:00)
[2016-12-15] MEDS: LEVOTHYROXINE NA 25 MCG TABLET (FP) PO SCH (06:52)
[2016-12-15] MEDS: FUROSEMIDE 40 MG/4 ML INJECTABLE VIAL IVPUSH SCH ×2 (06:52→17:06)
[2016-12-15 07:37] LABS: BASOPHIL 2.3 % (0-2.0); EOSINOPHIL 5.3 % (0-4.5); MCH 22.2 pg (25.7-33.7); MCHC 31.2 g/dl (32.0-36.0); MEAN CELL VOLUME 71.2 fl (80-96); MEAN PLT VOLUME 8.4 fl (7.5-11.1); NEUTROPHILS 49.5 % (42.8-82.8); PLATELET COUNT 286 K/MM3 (134-434); RDW 20.9 % (11.6-15.6); WHITE BLOOD COUNT 5.4 K/mm3 (4.0-10.0)
[2016-12-15 07:52] LABS: ANION GAP 8 (8-16); CALCIUM 8.5 mg/dL (8.5-10.1); CO2 27 mmol/L (21-32); CREATININE 2.2 mg/dL (0.55-1.02); GLUCOSE,RANDOM 93 mg/dL (74-106); MAGNESIUM 2.1 mg/dL (1.8-2.4); PHOSPHOROUS 3.1 mg/dL (2.5-4.9)
[2016-12-15] MEDS ORDERED: PT OWN MED DRAWER 7, Y5N ONE ×2 (09:26→14:35)
--- NOTE | 2016-12-15 09:28 | PN ---
Progress Note, Physician Chief Complaint: SOB better History of Present Illness: Discussed with Dr Elly RIVERA heparin start coumadin - Current Medication List Current Medications: Active Medications Acetaminophen/Codeine Phosphate (Tylenol # 3 -) 1 tab PO Q6H PRN PRN Reason: PAIN Last Admin: 12/15/16 00:30 Dose: 1 tab Alprazolam (Xanax -) 0.25 mg PO Q8H PRN PRN Reason: ANXIETY Last Admin: 12/15/16 00:30 Dose: 0.25 mg Atorvastatin Calcium (Lipitor -) 20 mg PO HS [facility] Last Admin: 12/14/16 21:59 Dose: 20 mg Diphenhydramine HCl (Benadryl -) 25 mg PO Q8H PRN PRN Reason: ITCHINESS Last Admin: 12/14/16 22:11 Dose: 25 mg Fluticasone Propionate (Flonase -) 1 spray NS BID PRN PRN Reason: RHINITIS Furosemide (Lasix Injection -) 40 mg IVPUSH BID@0600,1400 [facility] Last Admin: 12/15/16 06:52 Dose: 40 mg Heparin Sodium (Porcine) (Heparin -) 1,000 unit IVPUSH PRN PRN PRN Reason: Heparin Last Admin: 12/12/16 19:41 Dose: 1,000 unit Heparin Sodium (Porcine) (Heparin -) 5,000 unit IVPUSH PRN PRN PRN Reason: Heparin Hydrocortisone (Anusol 2.5% Hc Cream -) 1 applic [place] DAILY [facility] Last Admin: 12/14/16 09:28 Dose: 1 applic Pantoprazole Sodium 40 mg/ (Sodium Chloride) 100 mls @ 200 mls/hr IVPB BID [facility] Last Admin: 12/14/16 22:00 Dose: 200 mls/hr Ceftriaxone Sodium 1 gm/ (Dextrose) 50 mls @ 100 mls/hr IVPB DAILY [facility] Last Admin: 12/14/16 09:27 Dose: 100 mls/hr Heparin Sodium/Dextrose (Heparin Infusion -) 500 mls @ 20 mls/hr IVPB TITR [facility] ; 1,000 UNITS/HR PRN Reason: Protocol Last Admin: 12/14/16 09:29 Dose: 12 mls/hr Insulin Aspart (Novolog Vial Sliding Scale -) 1 vial SQ TIDAC [facility] PRN Reason: Protocol Last Admin: 12/15/16 06:52 Dose: Not Given Insulin Aspart (Novolog Mix 70/30 Vial) 15 units SQ DAILY [facility] Last Admin: 12/14/16 09:29 Dose: 15 units Levothyroxine Sodium (Synthroid -) 25 mcg PO DAILY@0700 [facility] Last Admin: 12/15/16 06:52 Dose: 25 mcg Metoclopramide HCl (Reglan Injection -) 5 mg IVPB Q6H PRN PRN Reason: NAUSEA AND/OR VOMITING Metoprolol Tartrate (Lopressor -) 50 mg PO BID [facility] Last Admin: 12/14/16 21:59 Dose: 50 mg Polyethylene Glycol (Miralax (For Daily Use) -) 17 gm PO BID [facility] Last Admin: 12/14/16 22:00 Dose: 17 mg Potassium Chloride (K-Dur -) 20 meq PO BID [facility] Last Admin: 12/14/16 21:59 Dose: 20 meq Psyllium Hydrophilic Mucilloid (Metamucil (Sugar-Free) -) 5.85 gm PO DAILY [facility] Last Admin: 12/14/16 09:28 Dose: 5.85 gm - Objective Vital Signs: Vital Signs Temperature 96 F L 12/15/16 05:39 Pulse Rate 90 12/15/16 05:39 Respiratory Rate 20 12/15/16 05:39 Blood Pressure 105/54 12/15/16 05:39 O2 Sat by Pulse Oximetry (%) 96 12/14/16 21:00 Constitutional: Yes: Calm Eyes: Yes: WNL HENT: Yes: WNL Neck: Yes: WNL Cardiovascular: Yes: Pulse Irregular Respiratory: Yes: On Nasal O2 Gastrointestinal: Yes: WNL ...Rectal Exam: Yes: Deferred Genitourinary: Yes: WNL Musculoskeletal: Yes: Muscle Weakness Edema: LLE: 1+, RLE: 1+ Neurological: Yes: Alert Labs: CBC, BMP 12/15/16 05:35 12/15/16 05:35 INR, PTT INR 1.56 (0.82-1.09) H 12/10/16 18:13 Assessment/Plan Possible DC home in AM
[2016-12-15] MEDS ORDERED: WARFARIN NA 10 MG TABLET (FP) PO ONE (09:30)
[2016-12-15] MEDS ORDERED: cefTRIAXone SODIUM 1 GM VIAL ONE (09:32)
[2016-12-15] MEDS ORDERED: DEXTROSE 5%-WATER - 50 ML IVPB ONE (09:32)
[2016-12-15] MEDS: METOPROLOL TARTRATE 50 MG TABLET (FP) PO SCH ×2 (09:35→21:45)
[2016-12-15] MEDS: POTASSIUM CHLORIDE TABS 20 MEQ TABLET.ER (FP) PO SCH ×2 (09:35→21:45)
[2016-12-15] MEDS: PANTOPRAZOLE SODIUM 40 MG in SODIUM CHLORIDE 100 ML IVPB SCH ×2 (09:35→21:46)
[2016-12-15] MEDS: PSYLLIUM 5.85 GM PACKET PO SCH (09:38)
[2016-12-15] MEDS: INSULIN (NOVOLOG MIX 70/30) 100 UNITS/ML MDV SQ SCH (09:38)
[2016-12-15] MEDS: CEFTRIAXONE 1 GM in DEXTROSE 5%-WATER - 50 ML IVPB SCH (09:38)
[2016-12-15] MEDS: POLYETHYLENE GLYCOL 3350 119 GM BTL PO SCH ×2 (09:38→21:46)
--- NOTE | 2016-12-15 10:10 | PN ---
Progress Note, Physician Chief Complaint: Pt is A&Ox3; no chest pain or dyspnea; ambulated slowly in hallway; feels weak. History of Present Illness: 71yo white woman w/ PmHx: Afib (Coumadin), CKD, diastolic CHF, severe pulmonary HTN, Cholecystectomy, HTN, IDDM, obesity, sedentary lifestyle; arthritis, who presents to ED c/o Acute onset Abdominal Pain that began on Monday after taking Lopressor, per son. Patient was seen at Dr. Norris's office by Dr. Betancur," and prescribed Xanax. Son states patient did not take her medications at all on Monday and Monday, with resolution of symptoms. Patient was recently taken off Xarelto and put on Warfarin. Son states mother woke up in good spirits today, and developed pain again after taking Lopressor. Associated Nausea and back pain. Patient denies CP, fever, rash, diff breathing , cough, congestion, dizziness, confusion, or any other complaints at this time. PCP- Dr. Montiel - Current Medication List Current Medications: Active Medications Acetaminophen/Codeine Phosphate (Tylenol # 3 -) 1 tab PO Q6H PRN PRN Reason: PAIN Last Admin: 12/15/16 00:30 Dose: 1 tab Alprazolam (Xanax -) 0.25 mg PO Q8H PRN PRN Reason: ANXIETY Last Admin: 12/15/16 00:30 Dose: 0.25 mg Atorvastatin Calcium (Lipitor -) 20 mg PO HS [facility] Last Admin: 12/14/16 21:59 Dose: 20 mg Diphenhydramine HCl (Benadryl -) 25 mg PO Q8H PRN PRN Reason: ITCHINESS Last Admin: 12/14/16 22:11 Dose: 25 mg Fluticasone Propionate (Flonase -) 1 spray NS BID PRN PRN Reason: RHINITIS Furosemide (Lasix Injection -) 40 mg IVPUSH BID@0600,1400 [facility] Last Admin: 12/15/16 06:52 Dose: 40 mg Heparin Sodium (Porcine) (Heparin -) 5,000 unit IVPUSH PRN PRN PRN Reason: Heparin Hydrocortisone (Anusol 2.5% Hc Cream -) 1 applic [place] DAILY [facility] Last Admin: 12/14/16 09:28 Dose: 1 applic Pantoprazole Sodium 40 mg/ (Sodium Chloride) 100 mls @ 200 mls/hr IVPB BID [facility] Last Admin: 12/15/16 09:35 Dose: 200 mls/hr Ceftriaxone Sodium 1 gm/ (Dextrose) 50 mls @ 100 mls/hr IVPB DAILY [facility] Last Admin: 12/15/16 09:38 Dose: 100 mls/hr Heparin Sodium/Dextrose (Heparin Infusion -) 500 mls @ 20 mls/hr IVPB TITR [facility] ; 1,000 UNITS/HR PRN Reason: Protocol Last Admin: 12/14/16 09:29 Dose: 12 mls/hr Insulin Aspart (Novolog Vial Sliding Scale -) 1 vial SQ TIDAC [facility] PRN Reason: Protocol Last Admin: 12/15/16 06:52 Dose: Not Given Insulin Aspart (Novolog Mix 70/30 Vial) 15 units SQ DAILY [facility] Last Admin: 12/15/16 09:38 Dose: 15 units Levothyroxine Sodium (Synthroid -) 25 mcg PO DAILY@0700 [facility] Last Admin: 12/15/16 06:52 Dose: 25 mcg Metoclopramide HCl (Reglan Injection -) 5 mg IVPB Q6H PRN PRN Reason: NAUSEA AND/OR VOMITING Metoprolol Tartrate (Lopressor -) 50 mg PO BID [facility] Last Admin: 12/15/16 09:35 Dose: 50 mg Polyethylene Glycol (Miralax (For Daily Use) -) 17 gm PO BID [facility] Last Admin: 12/15/16 09:38 Dose: 17 mg Potassium Chloride (K-Dur -) 20 meq PO BID [facility] Last Admin: 12/15/16 09:35 Dose: 20 meq Psyllium Hydrophilic Mucilloid (Metamucil (Sugar-Free) -) 5.85 gm PO DAILY [facility] Last Admin: 12/15/16 09:38 Dose: 5.85 gm - Objective Vital Signs: Vital Signs Temperature 96 F L 12/15/16 05:39 Pulse Rate 90 12/15/16 05:39 Respiratory Rate 20 12/15/16 05:39 Blood Pressure 105/54 12/15/16 05:39 O2 Sat by Pulse Oximetry (%) 96 12/14/16 21:00 Constitutional: Yes: Calm Eyes: Yes: WNL HENT: Yes: WNL Neck: Yes: WNL Cardiovascular: Yes: Pulse Irregular Respiratory: Yes: Regular Gastrointestinal: Yes: Soft, Abdomen, Obese ...Rectal Exam: Yes: Deferred Genitourinary: No: Anuria Breast(s): Yes: WNL Musculoskeletal: Yes: Back Pain, Muscle Weakness Extremities: Yes: Cool Edema: Yes Edema: LLE: 1+, RLE: 1+ Peripheral Pulses WNL: No Peripheral Pulses: Left Doralis Pedis: 1+, Right Dorsalis Pedis: 1+ Integumentary: Yes: Bruising Neurological: Yes: Alert, Oriented, Weakness Psychiatric: Yes: Alert, Oriented Labs: CBC, BMP 12/15/16 05:35 12/15/16 05:35 INR, PTT INR 1.56 (0.82-1.09) H 12/10/16 18:13 Problem List - Problems (1) Abdominal pain Assessment/Plan: ascites, anasarca (CT and MRI of abdomen). Code(s): R10.9 - UNSPECIFIED ABDOMINAL PAIN Qualifiers: Qualified Code(s): R10.11 - Right upper quadrant pain (2) Acute on chronic diastolic CHF (congestive heart failure) Assessment/Plan: Normal LVEF; reduced RVEF, with severe pulmonary HTN. No hx PE. on metoprolol and furosemide. F/u BUN/Cr, electrolytes, Is and Os, daily weight. TNI < 0.02 EKG: AF Stress MIBI when stable. For f/u with heart failure group as outpatient. Code(s): I50.33 - ACUTE ON CHRONIC DIASTOLIC (CONGESTIVE) HEART FAILURE (3) Atrial fibrillation Assessment/Plan: on metoprolol for HR control. Restarted on warfarin recently; subtherapeutic INR. Continue V heparin until INR 2-3 on warfarin. TSH WNL. Code(s): I48.91 - UNSPECIFIED ATRIAL FIBRILLATION Qualifiers: Qualified Code(s): I48.91 - Unspecified atrial fibrillation (4) Anasarca Code(s): R60.1 - GENERALIZED EDEMA (5) Ventral hernia Code(s): K43.9 - VENTRAL HERNIA WITHOUT OBSTRUCTION OR GANGRENE Qualifiers: Qualified Code(s): K43.9 - Ventral hernia without obstruction or gangrene (6) HTN (hypertension) Assessment/Plan: on metoprolol and furosemide. Code(s): I10 - ESSENTIAL (PRIMARY) HYPERTENSION (7) Moderate to severe pulmonary hypertension Assessment/Plan: normal LVEF; mild-moderately reduced RVEF; mild MR; severe pulmonary HTN. Denies hx PE. Obese Presumed sleep apnea. 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 Scheduled for heart failure/pulmonary HTN consult as outpatient at [facility]. Code(s): I27.2 - OTHER SECONDARY PULMONARY HYPERTENSION (8) Hypokalemia Assessment/Plan: likely secondary to vomiting, furosemide. Repleted K+; f/u all electrolytes. Code(s): E87.6 - HYPOKALEMIA (9) Obesity Assessment/Plan: obese; sedentary. f/u lipids. Code(s): E66.9 - OBESITY, UNSPECIFIED (10) UTI (urinary tract infection) Assessment/Plan: on antibiotics. f/u cultures. Code(s): N39.0 - URINARY TRACT INFECTION, SITE NOT SPECIFIED (11) Renal dysfunction Assessment/Plan: ongoing workup with Dr. Douglass noted. Code(s): N28.9 - DISORDER OF KIDNEY AND URETER, UNSPECIFIED
[2016-12-15] MEDS: HEPARIN INFUSION - 500 ML IVPB SCH (10:21)
--- NOTE | 2016-12-15 13:17 | EKG ---
Test Reason : Blood Pressure : / mmHG Vent. Rate : 091 BPM Atrial Rate : 101 BPM P-R Int : 000 ms QRS Dur : 090 ms QT Int : 362 ms P-R-T Axes : 000 089 210 degrees QTc Int : 445 ms ATRIAL FIBRILLATION LOW VOLTAGE QRS NONSPECIFIC T WAVE ABNORMALITY ABNORMAL ECG WHEN COMPARED WITH ECG OF 10-DEC-2016 09:36, QT HAS LENGTHENED Confirmed by MONICA ABBOTT MD ([id number]) on 12/15/2016 1:17:04 PM Referred By: Hilario DEAN Confirmed By:MONICA ABBOTT MD
[2016-12-15] MEDS ORDERED: METOLAZONE 5 MG TABLET PO ONE (13:30)
[2016-12-15] MEDS: HYDROCORTISONE 2.5% TOPICAL CREAM 30 GM TUBE PR SCH (17:53)
--- NOTE | 2016-12-15 20:49 | PN ---
Progress Note (short form) - Note Progress Note: Renal Follow up for PERI on CKD Pt seen and examined at the bedside awake and alert no acute complaints reports making a lot of urine after metolazone yesterday weight remains unchanged Vital Signs Temperature 97.8 F 12/15/16 18:00 Pulse Rate 88 12/15/16 18:00 Respiratory Rate 20 12/15/16 18:00 Blood Pressure 120/66 12/15/16 18:00 O2 Sat by Pulse Oximetry (%) 94 L 12/15/16 13:30 Intake & Output 12/12/16 12/13/16 12/14/16 12/15/16 23:59 23:59 23:59 23:59 Intake Total 1969 1240 589 Balance 1969 1240 589 Weight 231 lb 231 lb 9.6 oz 231 lb 9.6 oz Gen: NAD CVS: RRR Lungs: CTA abd: soft, obese, NT/ND Ext: No edema CBC, BMP 12/15/16 05:35 12/15/16 05:35 Current Medications Acetaminophen/Codeine Phosphate (Tylenol # 3 -) 1 tab PO Q6H PRN PRN Reason: PAIN Last Admin: 12/15/16 00:30 Dose: 1 tab Alprazolam (Xanax -) 0.25 mg PO Q8H PRN PRN Reason: ANXIETY Last Admin: 12/15/16 00:30 Dose: 0.25 mg Atorvastatin Calcium (Lipitor -) 20 mg PO HS [facility] Last Admin: 12/14/16 21:59 Dose: 20 mg Diphenhydramine HCl (Benadryl -) 25 mg PO Q8H PRN PRN Reason: ITCHINESS Last Admin: 12/14/16 22:11 Dose: 25 mg Fluticasone Propionate (Flonase -) 1 spray NS BID PRN PRN Reason: RHINITIS Furosemide (Lasix Injection -) 60 mg IVPUSH BID@0600,1400 [facility] Last Admin: 12/15/16 17:06 Dose: 60 mg Heparin Sodium (Porcine) (Heparin -) 5,000 unit IVPUSH PRN PRN PRN Reason: Heparin Hydrocortisone (Anusol 2.5% Hc Cream -) 1 applic [place] DAILY [facility] Last Admin: 12/15/16 17:53 Dose: Not Given Pantoprazole Sodium 40 mg/ (Sodium Chloride) 100 mls @ 200 mls/hr IVPB BID [facility] Last Admin: 12/15/16 09:35 Dose: 200 mls/hr Ceftriaxone Sodium 1 gm/ (Dextrose) 50 mls @ 100 mls/hr IVPB DAILY [facility] Last Admin: 12/15/16 09:38 Dose: 100 mls/hr Heparin Sodium/Dextrose (Heparin Infusion -) 500 mls @ 20 mls/hr IVPB TITR [facility] ; 1,000 UNITS/HR PRN Reason: Protocol Last Admin: 12/15/16 10:21 Dose: 12 mls/hr Insulin Aspart (Novolog Vial Sliding Scale -) 1 vial SQ TIDAC [facility] PRN Reason: Protocol Last Admin: 12/15/16 18:00 Dose: 2 unit Insulin Aspart (Novolog Mix 70/30 Vial) 15 units SQ DAILY [facility] Last Admin: 12/15/16 09:38 Dose: 15 units Levothyroxine Sodium (Synthroid -) 25 mcg PO DAILY@0700 [facility] Last Admin: 12/15/16 06:52 Dose: 25 mcg Metoclopramide HCl (Reglan Injection -) 5 mg IVPB Q6H PRN PRN Reason: NAUSEA AND/OR VOMITING Metoprolol Tartrate (Lopressor -) 50 mg PO BID [facility] Last Admin: 12/15/16 09:35 Dose: 50 mg Polyethylene Glycol (Miralax (For Daily Use) -) 17 gm PO BID [facility] Last Admin: 12/15/16 09:38 Dose: 17 mg Potassium Chloride (K-Dur -) 20 meq PO BID [facility] Last Admin: 12/15/16 09:35 Dose: 20 meq Psyllium Hydrophilic Mucilloid (Metamucil (Sugar-Free) -) 5.85 gm PO DAILY [facility] Last Admin: 12/15/16 09:38 Dose: 5.85 gm A/P 71 year old woman known to our service from prior admissions with PMhx of Afib, CHF, IDDM, CKD Stage 3 (baseline Cr 1.6-1.9) who presented with complaints of Abd pain and found to hae volume overload and BUN/Cr of 33/2.3. #PERI on CKD Stage 3 with volume overload Renal function stable will need continue diuresis as pt remains overloaded will give metolzone today as well will require moderate dose of diuretics on dischage (i.e. Torsomide 40 or Lasix 80mg BID) Javed Douglass DO Problem List - Problems (1) Abdominal pain Code(s): R10.9 - UNSPECIFIED ABDOMINAL PAIN Qualifiers: Abdominal location: right upper quadrant Qualified Code(s): R10.11 - Right upper quadrant pain (2) Acute on chronic diastolic CHF (congestive heart failure) Code(s): I50.33 - ACUTE ON CHRONIC DIASTOLIC (CONGESTIVE) HEART FAILURE (3) Atrial fibrillation Code(s): I48.91 - UNSPECIFIED ATRIAL FIBRILLATION Qualifiers: Atrial fibrillation type: unspecified Qualified Code(s): I48.91 - Unspecified atrial fibrillation (4) CKD stage 3 due to type 2 diabetes mellitus Code(s): E11.22 - TYPE 2 DIABETES MELLITUS W DIABETIC CHRONIC KIDNEY DISEASE N18.3 - CHRONIC KIDNEY DISEASE, STAGE 3 (MODERATE) (5) Edema extremities Code(s): R60.0 - LOCALIZED EDEMA
[2016-12-15] MEDS: diphenhydrAMINE HCL 25 MG CAPSULE (FP) PO PRN (21:45)
[2016-12-15] MEDS: ATORVASTATIN CA 20 MG TABLET (FP) PO SCH (21:45)
[2016-12-16] MEDS: FUROSEMIDE 40 MG/4 ML INJECTABLE VIAL IVPUSH SCH ×2 (06:39→14:12)
[2016-12-16] MEDS: INSULIN SLIDING SCALE (NOVOLOG) 1 VIAL SQ SCH ×3 (06:40→17:59)
[2016-12-16] MEDS: LEVOTHYROXINE NA 25 MCG TABLET (FP) PO SCH (06:57)
[2016-12-16 07:19] LABS: MCHC 30.8 g/dl (32.0-36.0); MEAN CELL VOLUME 71.3 fl (80-96); MEAN PLT VOLUME 8.4 fl (7.5-11.1); PLATELET COUNT 299 K/MM3 (134-434); RDW 20.9 % (11.6-15.6); WHITE BLOOD COUNT 5.2 K/mm3 (4.0-10.0)
[2016-12-16 07:43] LABS: INR 1.39 (0.82-1.09); PROTHROMBIN TIME (PATIENT) 15.4 SEC (9.98-11.88)
[2016-12-16 07:59] LABS: ANION GAP 12 (8-16); CALCIUM 8.7 mg/dL (8.5-10.1); CO2 23 mmol/L (21-32); CREATININE 2.3 mg/dL (0.55-1.02); GLUCOSE,RANDOM 116 mg/dL (74-106)
[2016-12-16] MEDS ORDERED: cefTRIAXone SODIUM 1 GM VIAL ONE (09:12)
[2016-12-16] MEDS ORDERED: DEXTROSE 5%-WATER - 50 ML IVPB ONE (09:13)
[2016-12-16] MEDS: POTASSIUM CHLORIDE TABS 20 MEQ TABLET.ER (FP) PO SCH ×2 (09:21→21:24)
[2016-12-16] MEDS: CEFTRIAXONE 1 GM in DEXTROSE 5%-WATER - 50 ML IVPB SCH (09:21)
[2016-12-16] MEDS: POLYETHYLENE GLYCOL 3350 119 GM BTL PO SCH ×2 (09:22→21:24)
[2016-12-16] MEDS: PSYLLIUM 5.85 GM PACKET PO SCH (09:22)
[2016-12-16] MEDS: HEPARIN INFUSION - 500 ML IVPB SCH ×2 (09:23→21:00)
[2016-12-16] MEDS: METOPROLOL TARTRATE 50 MG TABLET (FP) PO SCH ×2 (09:37→21:24)
[2016-12-16] MEDS ORDERED: WARFARIN NA 10 MG TABLET (FP) PO ONE (09:43)
[2016-12-16] MEDS: HYDROCORTISONE 2.5% TOPICAL CREAM 30 GM TUBE PR SCH (11:25)
[2016-12-16] MEDS: PANTOPRAZOLE SODIUM 40 MG in SODIUM CHLORIDE 100 ML IVPB SCH ×2 (11:25→21:23)
[2016-12-16] MEDS ORDERED: INSULIN (NOVOLOG) ASPART 100 UNITS/ML 10ML VIAL ONE ×2 (12:11→17:52)
[2016-12-16] MEDS: INSULIN (NOVOLOG MIX 70/30) 100 UNITS/ML MDV SQ SCH (12:16)
[2016-12-16] MEDS ORDERED: INSULIN (NOVOLOG MIX 70/30) 100 UNITS/ML MDV SQ ONE (12:25)
[2016-12-16] MEDS ORDERED: METOLAZONE 5 MG TABLET PO ONE (14:15)
--- NOTE | 2016-12-16 14:18 | PN ---
Progress Note (short form) - Note Progress Note: Renal Follow up for PERI on CKD Pt seen and examined at the bedside no acute complaints reports increased urine output s/p metolazone no sob but legs remain elevated Vital Signs Temperature 98.1 F 12/16/16 06:00 Pulse Rate 97 H 12/16/16 14:10 Respiratory Rate 18 12/16/16 14:10 Blood Pressure 111/57 12/16/16 14:10 O2 Sat by Pulse Oximetry (%) 99 12/16/16 12:05 Intake & Output 12/13/16 12/14/16 12/15/16 12/16/16 23:59 23:59 23:59 23:59 Intake Total 1969 1240 589 344 Balance 1969 1240 589 344 Weight 231 lb 231 lb 9.6 oz 231 lb 9.6 oz 229 lb 2 oz Gen: NAD CVS: RRR Lungs: CTA abd: soft, obese, NT/ND Ext: No edema CBC, BMP 12/16/16 06:30 12/16/16 06:30 Current Medications Acetaminophen/Codeine Phosphate (Tylenol # 3 -) 1 tab PO Q6H PRN PRN Reason: PAIN Last Admin: 12/15/16 23:43 Dose: 1 tab Alprazolam (Xanax -) 0.25 mg PO Q8H PRN PRN Reason: ANXIETY Last Admin: 12/15/16 21:45 Dose: 0.25 mg Atorvastatin Calcium (Lipitor -) 20 mg PO HS [facility] Last Admin: 12/15/16 21:45 Dose: 20 mg Diphenhydramine HCl (Benadryl -) 25 mg PO Q8H PRN PRN Reason: ITCHINESS Last Admin: 12/15/16 21:45 Dose: 25 mg Fluticasone Propionate (Flonase -) 1 spray NS BID PRN PRN Reason: RHINITIS Furosemide (Lasix Injection -) 60 mg IVPUSH BID@0600,1400 [facility] Last Admin: 12/16/16 14:12 Dose: 60 mg Heparin Sodium (Porcine) (Heparin -) 5,000 unit IVPUSH PRN PRN PRN Reason: Heparin Hydrocortisone (Anusol 2.5% Hc Cream -) 1 applic [place] DAILY [facility] Last Admin: 12/16/16 11:25 Dose: 1 applic Pantoprazole Sodium 40 mg/ (Sodium Chloride) 100 mls @ 200 mls/hr IVPB BID [facility] Last Admin: 12/16/16 11:25 Dose: 200 mls/hr Ceftriaxone Sodium 1 gm/ (Dextrose) 50 mls @ 100 mls/hr IVPB DAILY [facility] Last Admin: 12/16/16 09:21 Dose: 100 mls/hr Heparin Sodium/Dextrose (Heparin Infusion -) 500 mls @ 20 mls/hr IVPB TITR [facility] ; 1,000 UNITS/HR PRN Reason: Protocol Last Admin: 12/16/16 09:23 Dose: Not Given Insulin Aspart (Novolog Vial Sliding Scale -) 1 vial SQ TIDAC [facility] PRN Reason: Protocol Last Admin: 12/16/16 12:16 Dose: 2 unit Insulin Aspart (Novolog Mix 70/30 Vial) 15 units SQ DAILY [facility] Last Admin: 12/16/16 12:16 Dose: 15 units Levothyroxine Sodium (Synthroid -) 25 mcg PO DAILY@0700 [facility] Last Admin: 12/16/16 06:57 Dose: 25 mcg Metoclopramide HCl (Reglan Injection -) 5 mg IVPB Q6H PRN PRN Reason: NAUSEA AND/OR VOMITING Metolazone (Zaroxolyn -) 5 mg PO ONCE ONE Stop: 12/16/16 14:16 Metoprolol Tartrate (Lopressor -) 50 mg PO BID [facility] Last Admin: 12/16/16 09:37 Dose: 50 mg Polyethylene Glycol (Miralax (For Daily Use) -) 17 gm PO BID [facility] Last Admin: 12/16/16 09:22 Dose: 17 mg Potassium Chloride (K-Dur -) 20 meq PO BID [facility] Last Admin: 12/16/16 09:21 Dose: 20 meq Psyllium Hydrophilic Mucilloid (Metamucil (Sugar-Free) -) 5.85 gm PO DAILY [facility] Last Admin: 12/16/16 09:22 Dose: 5.85 gm A/P 71 year old woman known to our service from prior admissions with PMhx of Afib, CHF, IDDM, CKD Stage 3 (baseline Cr 1.6-1.9) who presented with complaints of Abd pain and found to hae volume overload and BUN/Cr of 33/2.3. #PERI on CKD Stage 3 with volume overload Renal function remains stable pt finally with some weight loss yesterday continue IV lasix and Metolazone will need Oral Torsemide 60mg daily on D/C will need outpatient follow up for CKD Javed Douglass DO Problem List - Problems (1) Abdominal pain Code(s): R10.9 - UNSPECIFIED ABDOMINAL PAIN Qualifiers: Qualified Code(s): R10.11 - Right upper quadrant pain (2) Acute on chronic diastolic CHF (congestive heart failure) Code(s): I50.33 - ACUTE ON CHRONIC DIASTOLIC (CONGESTIVE) HEART FAILURE (3) Atrial fibrillation Code(s): I48.91 - UNSPECIFIED ATRIAL FIBRILLATION Qualifiers: Qualified Code(s): I48.91 - Unspecified atrial fibrillation (4) CKD stage 3 due to type 2 diabetes mellitus Code(s): E11.22 - TYPE 2 DIABETES MELLITUS W DIABETIC CHRONIC KIDNEY DISEASE N18.3 - CHRONIC KIDNEY DISEASE, STAGE 3 (MODERATE) (5) Edema extremities Code(s): R60.0 - LOCALIZED EDEMA
[2016-12-16 20:18] VITALS: BP 101/55; PULSE 98; TEMP 97.7
[2016-12-16] MEDS: ACETAMINOPHEN WITH CODEINE 300MG/30MG TABLET PO PRN (20:47)
[2016-12-16] MEDS: ALPRAZolam 0.25 MG TABLET PO PRN (21:24)
[2016-12-16] MEDS: ATORVASTATIN CA 20 MG TABLET (FP) PO SCH (21:24)
--- NOTE | 2016-12-16 21:51 | PN ---
Progress Note, Physician Chief Complaint: Pt is A&Ox3; sitting in chair. No further abdominal pain. No chest pain or dyspnea. History of Present Illness: 71yo white woman w/ PmHx: Afib (Coumadin), CKD, diastolic CHF, severe pulmonary HTN, Cholecystectomy, HTN, IDDM, obesity, sedentary lifestyle; arthritis, who presents to ED c/o Acute onset Abdominal Pain that began on Monday after taking Lopressor, per son. Patient was seen at Dr. Norris's office by Dr. Betancur," and prescribed Xanax. Son states patient did not take her medications at all on Monday and Monday, with resolution of symptoms. Patient was recently taken off Xarelto and put on Warfarin. Son states mother woke up in good spirits today, and developed pain again after taking Lopressor. Associated Nausea and back pain. Patient denies CP, fever, rash, diff breathing , cough, congestion, dizziness, confusion, or any other complaints at this time. PCP- Dr. Montiel - Current Medication List Current Medications: Active Medications Acetaminophen/Codeine Phosphate (Tylenol # 3 -) 1 tab PO Q6H PRN PRN Reason: PAIN Last Admin: 12/16/16 20:47 Dose: 1 tab Alprazolam (Xanax -) 0.25 mg PO Q8H PRN PRN Reason: ANXIETY Last Admin: 12/16/16 21:24 Dose: 0.25 mg Atorvastatin Calcium (Lipitor -) 20 mg PO HS [facility] Last Admin: 12/16/16 21:24 Dose: 20 mg Diphenhydramine HCl (Benadryl -) 25 mg PO Q8H PRN PRN Reason: ITCHINESS Last Admin: 12/15/16 21:45 Dose: 25 mg Fluticasone Propionate (Flonase -) 1 spray NS BID PRN PRN Reason: RHINITIS Furosemide (Lasix Injection -) 60 mg IVPUSH BID@0600,1400 [facility] Last Admin: 12/16/16 14:12 Dose: 60 mg Heparin Sodium (Porcine) (Heparin -) 5,000 unit IVPUSH PRN PRN PRN Reason: Heparin Hydrocortisone (Anusol 2.5% Hc Cream -) 1 applic [place] DAILY [facility] Last Admin: 12/16/16 11:25 Dose: 1 applic Pantoprazole Sodium 40 mg/ (Sodium Chloride) 100 mls @ 200 mls/hr IVPB BID [facility] Last Admin: 12/16/16 21:23 Dose: 200 mls/hr Ceftriaxone Sodium 1 gm/ (Dextrose) 50 mls @ 100 mls/hr IVPB DAILY [facility] Last Admin: 12/16/16 09:21 Dose: 100 mls/hr Heparin Sodium/Dextrose (Heparin Infusion -) 500 mls @ 20 mls/hr IVPB TITR [facility] ; 1,000 UNITS/HR PRN Reason: Protocol Last Admin: 12/16/16 09:23 Dose: Not Given Insulin Aspart (Novolog Vial Sliding Scale -) 1 vial SQ TIDAC [facility] PRN Reason: Protocol Last Admin: 12/16/16 17:59 Dose: Not Given Insulin Aspart (Novolog Mix 70/30 Vial) 15 units SQ DAILY [facility] Last Admin: 12/16/16 12:16 Dose: 15 units Levothyroxine Sodium (Synthroid -) 25 mcg PO DAILY@0700 [facility] Last Admin: 12/16/16 06:57 Dose: 25 mcg Metoclopramide HCl (Reglan Injection -) 5 mg IVPB Q6H PRN PRN Reason: NAUSEA AND/OR VOMITING Metoprolol Tartrate (Lopressor -) 50 mg PO BID [facility] Last Admin: 12/16/16 21:24 Dose: 50 mg Polyethylene Glycol (Miralax (For Daily Use) -) 17 gm PO BID [facility] Last Admin: 12/16/16 21:24 Dose: 17 mg Potassium Chloride (K-Dur -) 20 meq PO BID [facility] Last Admin: 12/16/16 21:24 Dose: 20 meq Psyllium Hydrophilic Mucilloid (Metamucil (Sugar-Free) -) 5.85 gm PO DAILY [facility] Last Admin: 12/16/16 09:22 Dose: 5.85 gm - Objective Vital Signs: Vital Signs Temperature 97.7 F 12/16/16 20:12 Pulse Rate 98 H 12/16/16 20:12 Respiratory Rate 20 12/16/16 20:12 Blood Pressure 101/55 12/16/16 20:12 O2 Sat by Pulse Oximetry (%) 99 12/16/16 12:05 Constitutional: Yes: Calm Eyes: Yes: WNL HENT: Yes: WNL Neck: Yes: Thyromegaly Cardiovascular: Yes: Pulse Irregular Respiratory: Yes: Regular Gastrointestinal: Yes: Soft, Abdomen, Obese, Ascites ...Rectal Exam: Yes: Deferred Genitourinary: Yes: Anuria Musculoskeletal: Yes: Muscle Weakness Extremities: Yes: Cool Edema: Yes Edema: LLE: 1+, RLE: 1+ Peripheral Pulses WNL: No Peripheral Pulses: Left Doralis Pedis: 1+, Right Dorsalis Pedis: 1+ Integumentary: Yes: Venous Stasis Changes Neurological: Yes: Alert, Oriented, Weakness Psychiatric: Yes: Alert, Oriented Labs: CBC, BMP 12/16/16 06:30 12/16/16 06:30 INR, PTT INR 1.39 (0.82-1.09) H 12/16/16 06:30 Abnormal Lab Results 12/16/16 12/16/16 12/16/16 06:30 06:30 06:30 Hgb 9.6 L Hct 31.1 L MCV 71.3 L MCH 22.0 L MCHC 30.8 L RDW 20.9 H PT with INR 15.40 H INR 1.39 H PTT (Actin FS) 79.3 H BUN Creatinine Random Glucose 12/16/16 06:30 Hgb Hct MCV MCH MCHC RDW PT with INR INR PTT (Actin FS) BUN 34 H Creatinine 2.3 H Random Glucose 116 H D Problem List - Problems (1) Abdominal pain Assessment/Plan: ascites, anasarca (CT and MRI of abdomen). Code(s): R10.9 - UNSPECIFIED ABDOMINAL PAIN Qualifiers: Qualified Code(s): R10.11 - Right upper quadrant pain (2) Acute on chronic diastolic CHF (congestive heart failure) Assessment/Plan: Normal LVEF; reduced RVEF, with severe pulmonary HTN. No hx PE. on metoprolol and furosemide. F/u BUN/Cr, electrolytes, Is and Os, daily weight. TNI < 0.02 EKG: AF Stress MIBI when stable. For f/u with heart failure group as outpatient. Code(s): I50.33 - ACUTE ON CHRONIC DIASTOLIC (CONGESTIVE) HEART FAILURE (3) Atrial fibrillation Assessment/Plan: on metoprolol for HR control (may change to metoprolol ER 100 mg daily for easier compliance and possibly better 24 hour coverage). Restarted on warfarin recently; subtherapeutic INR. Continue V heparin until INR 2-3 on warfarin. TSH WNL. Code(s): I48.91 - UNSPECIFIED ATRIAL FIBRILLATION Qualifiers: Qualified Code(s): I48.91 - Unspecified atrial fibrillation (4) Anasarca Assessment/Plan: mild weight loss; on IV furosemide and metolazone. Code(s): R60.1 - GENERALIZED EDEMA (5) Ventral hernia Code(s): K43.9 - VENTRAL HERNIA WITHOUT OBSTRUCTION OR GANGRENE Qualifiers: Qualified Code(s): K43.9 - Ventral hernia without obstruction or gangrene (6) HTN (hypertension) Assessment/Plan: on metoprolol and furosemide. Code(s): I10 - ESSENTIAL (PRIMARY) HYPERTENSION (7) Moderate to severe pulmonary hypertension Assessment/Plan: normal LVEF; mild-moderately reduced RVEF; mild MR; severe pulmonary HTN. Denies hx PE. Obese Presumed sleep apnea. f/u with crib clerk. Scheduled for heart failure/pulmonary HTN consult as outpatient at [facility]. Code(s): I27.2 - OTHER SECONDARY PULMONARY HYPERTENSION (8) Obesity Assessment/Plan: obese; sedentary. Total cholesterol 76 mg/dL. (on atorvastatin). Code(s): E66.9 - OBESITY, UNSPECIFIED (9) UTI (urinary tract infection) Assessment/Plan: on antibiotics. No growth on cultures. Code(s): N39.0 - URINARY TRACT INFECTION, SITE NOT SPECIFIED (10) Renal dysfunction Assessment/Plan: ongoing workup with Dr. Douglass noted. Now on both furosemide and metolazone, with mild fluid/weight loss. Code(s): N28.9 - DISORDER OF KIDNEY AND URETER, UNSPECIFIED
[2016-12-17] MEDS: INSULIN SLIDING SCALE (NOVOLOG) 1 VIAL SQ SCH (06:13)
[2016-12-17] MEDS: LEVOTHYROXINE NA 25 MCG TABLET (FP) PO SCH (06:14)
[2016-12-17] MEDS: FUROSEMIDE 40 MG/4 ML INJECTABLE VIAL IVPUSH SCH (06:14)
--- NOTE | 2016-12-17 08:42 | PN ---
Progress Note, Physician History of Present Illness: 71yo woman w/ PmHx: Afib (Coumadin), CKD, diastolic CHF, severe pulmonary HTN, Cholecystectomy, HTN, IDDM, obesity, sedentary lifestyle; arthritis, who presents to ED c/o Acute onset Abdominal Pain that began on Monday after taking Lopressor, per son. Patient was seen at Dr. Norris's office by Dr. Betancur," and prescribed Xanax. Son states patient did not take her medications at all on Monday and Monday, with resolution of symptoms. Patient was recently taken off Xarelto and put on Warfarin. Son states mother woke up in good spirits today , and developed pain again after taking Lopressor. Associated Nausea and back pain. Patient denies CP, fever, rash, diff breathing, cough, congestion, dizziness, confusion, or any other complaints at this time. - Current Medication List Current Medications: Active Medications Acetaminophen/Codeine Phosphate (Tylenol # 3 -) 1 tab PO Q6H PRN PRN Reason: PAIN Last Admin: 12/16/16 20:47 Dose: 1 tab Alprazolam (Xanax -) 0.25 mg PO Q8H PRN PRN Reason: ANXIETY Last Admin: 12/16/16 21:24 Dose: 0.25 mg Atorvastatin Calcium (Lipitor -) 20 mg PO HS [facility] Last Admin: 12/16/16 21:24 Dose: 20 mg Diphenhydramine HCl (Benadryl -) 25 mg PO Q8H PRN PRN Reason: ITCHINESS Last Admin: 12/15/16 21:45 Dose: 25 mg Fluticasone Propionate (Flonase -) 1 spray NS BID PRN PRN Reason: RHINITIS Furosemide (Lasix Injection -) 60 mg IVPUSH BID@0600,1400 [facility] Last Admin: 12/17/16 06:14 Dose: 60 mg Hydrocortisone (Anusol 2.5% Hc Cream -) 1 applic [place] DAILY [facility] Last Admin: 12/16/16 11:25 Dose: 1 applic Pantoprazole Sodium 40 mg/ (Sodium Chloride) 100 mls @ 200 mls/hr IVPB BID [facility] Last Admin: 12/16/16 21:23 Dose: 200 mls/hr Ceftriaxone Sodium 1 gm/ (Dextrose) 50 mls @ 100 mls/hr IVPB DAILY [facility] Last Admin: 12/16/16 09:21 Dose: 100 mls/hr Insulin Aspart (Novolog Vial Sliding Scale -) 1 vial SQ TIDAC [facility] PRN Reason: Protocol Last Admin: 12/17/16 06:13 Dose: Not Given Insulin Aspart (Novolog Mix 70/30 Vial) 15 units SQ DAILY [facility] Last Admin: 12/16/16 12:16 Dose: 15 units Levothyroxine Sodium (Synthroid -) 25 mcg PO DAILY@0700 [facility] Last Admin: 12/17/16 06:14 Dose: 25 mcg Metoclopramide HCl (Reglan Injection -) 5 mg IVPB Q6H PRN PRN Reason: NAUSEA AND/OR VOMITING Metoprolol Tartrate (Lopressor -) 50 mg PO BID [facility] Last Admin: 12/16/16 21:24 Dose: 50 mg Polyethylene Glycol (Miralax (For Daily Use) -) 17 gm PO BID [facility] Last Admin: 12/16/16 21:24 Dose: 17 mg Potassium Chloride (K-Dur -) 20 meq PO BID [facility] Last Admin: 12/16/16 21:24 Dose: 20 meq Psyllium Hydrophilic Mucilloid (Metamucil (Sugar-Free) -) 5.85 gm PO DAILY [facility] Last Admin: 12/16/16 09:22 Dose: 5.85 gm - Objective Vital Signs: Vital Signs Temperature 97.7 F 12/16/16 20:12 Pulse Rate 98 H 12/16/16 20:12 Respiratory Rate 20 12/16/16 20:12 Blood Pressure 101/55 12/16/16 20:12 O2 Sat by Pulse Oximetry (%) 99 12/16/16 21:00 Eyes: Yes: WNL, Conjunctiva Clear, EOM Intact HENT: Yes: WNL, Atraumatic, Normocephalic Neck: Yes: WNL, Supple, Trachea Midline Cardiovascular: Yes: WNL, Regular Rate and Rhythm Respiratory: Yes: WNL, Regular, CTA Bilaterally Gastrointestinal: Yes: WNL, Normal Bowel Sounds Genitourinary: Yes: WNL Musculoskeletal: Yes: WNL Extremities: Yes: WNL Edema: Yes Edema: LLE: 1+, RLE: 1+ Integumentary: Yes: WNL Neurological: Yes: WNL, Alert, Oriented ...Motor Strength: WNL Psychiatric: Yes: WNL Labs: CBC, BMP 12/16/16 06:30 12/16/16 06:30 INR, PTT INR 1.39 (0.82-1.09) H 12/16/16 06:30 Assessment/Plan - Problems (1) Abdominal pain Assessment/Plan: ascites, anasarca (CT and MRI of abdomen). Code(s): R10.9 - UNSPECIFIED ABDOMINAL PAIN Qualifiers: Qualified Code(s): R10.11 - Right upper quadrant pain (2) Acute on chronic diastolic CHF (congestive heart failure) Assessment/Plan: Normal LVEF; reduced RVEF, with severe pulmonary HTN. No hx PE. on metoprolol and furosemide. F/u BUN/Cr, electrolytes, Is and Os, daily weight. TNI < 0.02 EKG: AF Stress MIBI when stable. For f/u with heart failure group as outpatient. Code(s): I50.33 - ACUTE ON CHRONIC DIASTOLIC (CONGESTIVE) HEART FAILURE (3) Atrial fibrillation Assessment/Plan: on metoprolol for HR control (may change to metoprolol ER 100 mg daily for easier compliance and possibly better 24 hour coverage). Restarted on warfarin recently; subtherapeutic INR. Continue V heparin until INR 2-3 on warfarin. TSH WNL. Code(s): I48.91 - UNSPECIFIED ATRIAL FIBRILLATION Qualifiers: Qualified Code(s): I48.91 - Unspecified atrial fibrillation (4) Anasarca Assessment/Plan: mild weight loss; on IV furosemide and metolazone. Code(s): R60.1 - GENERALIZED EDEMA (5) Ventral hernia Code(s): K43.9 - VENTRAL HERNIA WITHOUT OBSTRUCTION OR GANGRENE Qualifiers: Qualified Code(s): K43.9 - Ventral hernia without obstruction or gangrene (6) HTN (hypertension) Assessment/Plan: on metoprolol and furosemide. Code(s): I10 - ESSENTIAL (PRIMARY) HYPERTENSION (7) Moderate to severe pulmonary hypertension Assessment/Plan: normal LVEF; mild-moderately reduced RVEF; mild MR; severe pulmonary HTN. Denies hx PE. Obese Presumed sleep apnea. f/u with director of distance learning. Scheduled for heart failure/pulmonary HTN consult as outpatient at [facility]. Code(s): I27.2 - OTHER SECONDARY PULMONARY HYPERTENSION (8) Obesity Assessment/Plan: obese; sedentary. Total cholesterol 76 mg/dL. (on atorvastatin). Code(s): E66.9 - OBESITY, UNSPECIFIED (9) UTI (urinary tract infection) Assessment/Plan: on antibiotics. No growth on cultures. Code(s): N39.0 - URINARY TRACT INFECTION, SITE NOT SPECIFIED (10) Renal dysfunction Assessment/Plan: ongoing workup with Dr. Douglass noted. Now on both furosemide and metolazone, with mild fluid/weight loss. Code(s): N28.9 - DISORDER OF KIDNEY AND URETER, UNSPECIFIED
--- NOTE | 2016-12-17 08:57 | PN ---
Progress Note, Physician Chief Complaint: Feels better History of Present Illness: She was not discharged yesterday because the INR low Received 10 mg coumadin yesterday She is better today ,lost 6ibs of Wt - Current Medication List Current Medications: Active Medications Acetaminophen/Codeine Phosphate (Tylenol # 3 -) 1 tab PO Q6H PRN PRN Reason: PAIN Last Admin: 12/16/16 20:47 Dose: 1 tab Alprazolam (Xanax -) 0.25 mg PO Q8H PRN PRN Reason: ANXIETY Last Admin: 12/16/16 21:24 Dose: 0.25 mg Atorvastatin Calcium (Lipitor -) 20 mg PO HS [facility] Last Admin: 12/16/16 21:24 Dose: 20 mg Diphenhydramine HCl (Benadryl -) 25 mg PO Q8H PRN PRN Reason: ITCHINESS Last Admin: 12/15/16 21:45 Dose: 25 mg Fluticasone Propionate (Flonase -) 1 spray NS BID PRN PRN Reason: RHINITIS Furosemide (Lasix Injection -) 60 mg IVPUSH BID@0600,1400 [facility] Last Admin: 12/17/16 06:14 Dose: 60 mg Hydrocortisone (Anusol 2.5% Hc Cream -) 1 applic [place] DAILY [facility] Last Admin: 12/16/16 11:25 Dose: 1 applic Pantoprazole Sodium 40 mg/ (Sodium Chloride) 100 mls @ 200 mls/hr IVPB BID [facility] Last Admin: 12/16/16 21:23 Dose: 200 mls/hr Ceftriaxone Sodium 1 gm/ (Dextrose) 50 mls @ 100 mls/hr IVPB DAILY [facility] Last Admin: 12/16/16 09:21 Dose: 100 mls/hr Insulin Aspart (Novolog Vial Sliding Scale -) 1 vial SQ TIDAC [facility] PRN Reason: Protocol Last Admin: 12/17/16 06:13 Dose: Not Given Insulin Aspart (Novolog Mix 70/30 Vial) 15 units SQ DAILY [facility] Last Admin: 12/16/16 12:16 Dose: 15 units Levothyroxine Sodium (Synthroid -) 25 mcg PO DAILY@0700 [facility] Last Admin: 12/17/16 06:14 Dose: 25 mcg Metoclopramide HCl (Reglan Injection -) 5 mg IVPB Q6H PRN PRN Reason: NAUSEA AND/OR VOMITING Metoprolol Tartrate (Lopressor -) 50 mg PO BID [facility] Last Admin: 12/16/16 21:24 Dose: 50 mg Polyethylene Glycol (Miralax (For Daily Use) -) 17 gm PO BID [facility] Last Admin: 12/16/16 21:24 Dose: 17 mg Potassium Chloride (K-Dur -) 20 meq PO BID [facility] Last Admin: 12/16/16 21:24 Dose: 20 meq Psyllium Hydrophilic Mucilloid (Metamucil (Sugar-Free) -) 5.85 gm PO DAILY [facility] Last Admin: 12/16/16 09:22 Dose: 5.85 gm - Objective Vital Signs: Vital Signs Temperature 97.7 F 12/16/16 20:12 Pulse Rate 98 H 12/16/16 20:12 Respiratory Rate 20 12/16/16 20:12 Blood Pressure 101/55 12/16/16 20:12 O2 Sat by Pulse Oximetry (%) 99 12/16/16 21:00 Constitutional: Yes: No Distress Eyes: Yes: WNL HENT: Yes: WNL Neck: Yes: WNL Cardiovascular: Yes: Pulse Irregular Respiratory: Yes: WNL Gastrointestinal: Yes: Normal Bowel Sounds Genitourinary: Yes: WNL Breast(s): Yes: WNL Musculoskeletal: Yes: Muscle Weakness Peripheral Pulses WNL: Yes Neurological: Yes: WNL Labs: CBC, BMP 12/16/16 06:30 12/16/16 06:30 INR, PTT INR 1.39 (0.82-1.09) H 12/16/16 06:30 Assessment/Plan DC home
[2016-12-17] MEDS ORDERED: DEXTROSE 5%-WATER - 50 ML IVPB ONE (09:37)
[2016-12-17] MEDS ORDERED: PT OWN MED DRAWER 7, Y5N ONE (09:37)
[2016-12-17] MEDS ORDERED: cefTRIAXone SODIUM 1 GM VIAL ONE (09:37)
[2016-12-17 09:50] LABS: INR 1.68 (0.82-1.09); PROTHROMBIN TIME (PATIENT) 18.7 SEC (9.98-11.88)
[2016-12-17 09:58] LABS: ACTIVATED PTT 79.3 SECONDS (26.9-34.4)
[2016-12-17] MEDS: METOPROLOL TARTRATE 50 MG TABLET (FP) PO SCH (10:01)
[2016-12-17] MEDS: POTASSIUM CHLORIDE TABS 20 MEQ TABLET.ER (FP) PO SCH (10:02)
[2016-12-17] MEDS: ALPRAZolam 0.25 MG TABLET PO PRN (10:02)
[2016-12-17] MEDS: ACETAMINOPHEN WITH CODEINE 300MG/30MG TABLET PO PRN (10:02)
[2016-12-17] MEDS: PANTOPRAZOLE SODIUM 40 MG in SODIUM CHLORIDE 100 ML IVPB SCH (10:03)
[2016-12-17] MEDS: CEFTRIAXONE 1 GM in DEXTROSE 5%-WATER - 50 ML IVPB SCH (10:03)
[2016-12-17] MEDS: INSULIN (NOVOLOG MIX 70/30) 100 UNITS/ML MDV SQ SCH (10:04)
[2016-12-17] MEDS: HYDROCORTISONE 2.5% TOPICAL CREAM 30 GM TUBE PR SCH (10:07)
[2016-12-17] MEDS: PSYLLIUM 5.85 GM PACKET PO SCH (10:07)
[2016-12-17] MEDS: POLYETHYLENE GLYCOL 3350 119 GM BTL PO SCH (10:07)
[2016-12-17] MEDS: HEPARIN INFUSION - 500 ML IVPB SCH (10:08)
--- NOTE | 2016-12-17 10:38 | PN ---
Progress Note (short form) - Note Progress Note: Renal Follow up for PERI on CKD Pt seen and examined at the bedside feels better good urine output Vital Signs Temperature 97.7 F 12/16/16 20:12 Pulse Rate 98 H 12/16/16 20:12 Respiratory Rate 20 12/16/16 20:12 Blood Pressure 101/55 12/16/16 20:12 O2 Sat by Pulse Oximetry (%) 99 12/16/16 21:00 Intake & Output 12/14/16 12/15/16 12/16/16 12/17/16 23:59 23:59 23:59 23:59 Intake Total 1305 403 4051 194 Balance 8378 428 7245 194 Weight 231 lb 9.6 oz 231 lb 9.6 oz 229 lb 2 oz 225 lb 3.2 oz Gen: NAD CVS: RRR Lungs: CTA abd: soft, obese, NT/ND Ext: No edema CBC, BMP 12/16/16 06:30 12/16/16 06:30 Current Medications Acetaminophen/Codeine Phosphate (Tylenol # 3 -) 1 tab PO Q6H PRN PRN Reason: PAIN Last Admin: 12/17/16 10:02 Dose: 1 tab Alprazolam (Xanax -) 0.25 mg PO Q8H PRN PRN Reason: ANXIETY Last Admin: 12/17/16 10:02 Dose: 0.25 mg Atorvastatin Calcium (Lipitor -) 20 mg PO HS [facility] Last Admin: 12/16/16 21:24 Dose: 20 mg Diphenhydramine HCl (Benadryl -) 25 mg PO Q8H PRN PRN Reason: ITCHINESS Last Admin: 12/15/16 21:45 Dose: 25 mg Fluticasone Propionate (Flonase -) 1 spray NS BID PRN PRN Reason: RHINITIS Furosemide (Lasix Injection -) 60 mg IVPUSH BID@0600,1400 [facility] Last Admin: 12/17/16 06:14 Dose: 60 mg Hydrocortisone (Anusol 2.5% Hc Cream -) 1 applic [place] DAILY [facility] Last Admin: 12/17/16 10:07 Dose: Not Given Pantoprazole Sodium 40 mg/ (Sodium Chloride) 100 mls @ 200 mls/hr IVPB BID [facility] Last Admin: 12/17/16 10:03 Dose: 200 mls/hr Insulin Aspart (Novolog Vial Sliding Scale -) 1 vial SQ TIDAC [facility] PRN Reason: Protocol Last Admin: 12/17/16 06:13 Dose: Not Given Insulin Aspart (Novolog Mix 70/30 Vial) 15 units SQ DAILY [facility] Last Admin: 12/17/16 10:04 Dose: 15 units Levothyroxine Sodium (Synthroid -) 25 mcg PO DAILY@0700 [facility] Last Admin: 12/17/16 06:14 Dose: 25 mcg Metoclopramide HCl (Reglan Injection -) 5 mg IVPB Q6H PRN PRN Reason: NAUSEA AND/OR VOMITING Metoprolol Tartrate (Lopressor -) 50 mg PO BID [facility] Last Admin: 12/17/16 10:01 Dose: 50 mg Polyethylene Glycol (Miralax (For Daily Use) -) 17 gm PO BID [facility] Last Admin: 12/17/16 10:07 Dose: Not Given Potassium Chloride (K-Dur -) 20 meq PO BID [facility] Last Admin: 12/17/16 10:02 Dose: 20 meq Psyllium Hydrophilic Mucilloid (Metamucil (Sugar-Free) -) 5.85 gm PO DAILY [facility] Last Admin: 12/17/16 10:07 Dose: Not Given A/P 71 year old woman known to our service from prior admissions with PMhx of Afib, CHF, IDDM, CKD Stage 3 (baseline Cr 1.6-1.9) who presented with complaints of Abd pain and found to hae volume overload and BUN/Cr of 33/2.3. #PERI on CKD Stage 3 with volume overload no new labs today renal function stable as of yesterday pt achieving good diuresis with Lasix and Metolazone, to be discharged on the same will follow in the office on Monday will monitor renal function closely Javed Douglass DO Problem List - Problems (1) Abdominal pain Code(s): R10.9 - UNSPECIFIED ABDOMINAL PAIN Qualifiers: Qualified Code(s): R10.11 - Right upper quadrant pain (2) Acute on chronic diastolic CHF (congestive heart failure) Code(s): I50.33 - ACUTE ON CHRONIC DIASTOLIC (CONGESTIVE) HEART FAILURE (3) Atrial fibrillation Code(s): I48.91 - UNSPECIFIED ATRIAL FIBRILLATION Qualifiers: Qualified Code(s): I48.91 - Unspecified atrial fibrillation (4) CKD stage 3 due to type 2 diabetes mellitus Code(s): E11.22 - TYPE 2 DIABETES MELLITUS W DIABETIC CHRONIC KIDNEY DISEASE N18.3 - CHRONIC KIDNEY DISEASE, STAGE 3 (MODERATE) (5) Edema extremities Code(s): R60.0 - LOCALIZED EDEMA
== END 2016-12-17 10:40 | disposition home or self-care (01) | DRG 291 ==
LOC: JER 00:47 → JERBED 04:34 → J4W 07:16 → OBSVTOIN 16:00 → J5S 12-15 11:08
PROVIDERS: ADMIT Internal Medicine; ATTEND Internal Medicine
DX: I13.0 Hypertensive heart and chronic kidney disease with heart failure and stage 1 through stage 4 chronic kidney disease, or unspecified chronic kidney disease (principal); I50.33 Acute on chronic diastolic (congestive) heart failure; Z68.41 Body mass index [BMI] 40.0-44.9, adult; N17.9 Acute kidney failure, unspecified; N39.0 Urinary tract infection, site not specified; R18.8 Other ascites; I25.10 Atherosclerotic heart disease of native coronary artery without angina pectoris; Z79.01 Long term (current) use of anticoagulants; E11.22 Type 2 diabetes mellitus with diabetic chronic kidney disease; Z79.4 Long term (current) use of insulin; E66.9 Obesity, unspecified; E11.21 Type 2 diabetes mellitus with diabetic nephropathy; N18.3 Chronic kidney disease, stage 3 (moderate); I27.2 Other secondary pulmonary hypertension; I48.2 Chronic atrial fibrillation; E03.9 Hypothyroidism, unspecified; K43.9 Ventral hernia without obstruction or gangrene; E87.6 Hypokalemia; E66.01 Morbid (severe) obesity due to excess calories; K64.9 Unspecified hemorrhoids
CPT/HCPCS: 36415; 36600; 71010-TC; 71250-TC; 74176-TC; 74181-TC; 80048; 80053; 80061; 80076; 81003; 81015; 82150; 82272; 82375; 82570; 82803; 82977; 83050; 83605; 83690; 83721; 83735; 83880; 84100; 84156; 84300; 84484; 84540; 85025; 85027; 85610; 85730; 86140; 86704; 86706; 86708; 86803; 87045; 87046; 87086; 87205; 87324; 87340; 87449; 93005; 93010; 94761; 99285-25; G0378; J1644